=== PATIENT | female | born 1950 | race Caucasian/White ===

== ENCOUNTER 2023-05-01 14:10 | Emergency (ER) | payer OTHER, MEDICAID, SELFPAY ==
[2023-05-01 14:18] VITALS: BP 159/73; PULSE 83; RESP 16; TEMP 36.7; O2SAT 96; BMI 28.0
--- NOTE | 2023-05-01 15:10 | ED.URI ---
HPI - URI/Sore Throat <Renata Denise PA-C - Last Filed: 05/01/23 19:15> General Chief Complaint: Upper Respiratory Symptoms Stated Complaint: cold T-5/ sinus pressure Time Seen by Provider: 05/01/23 15:10 Source: patient Mode of arrival: Ambulatory History of Present Illness HPI Narrative: Patient is a 72-year-old female presenting for evaluation of cough, congestion and left lower tooth pain x 4 days. She reports she tested negative for COVID 3 times. She denies difficulty breathing. She states she is not having any ear pain. She denies any change to her vision. She reports she has had a headache above her left eyebrow which is not present at this time. She states that she has various weakness due to having had a stroke in 2013, 2014 and 2016. She states that she also regularly does have a little pain on the left side of her head from time to time related to her previous strokes. She denies any change in quality to her headache pain, and states it is not present at this time. She denies change in baseline body aches from arthritis. She denies sore throat. She notes some slight increase in fatigue, but states that she is able to do her normal activities. She states she does not have a primary care provider since she recently moved here. Related Data Allergies Allergy/AdvReac Type Severity Reaction Status Date / Time codeine AdvReac Nausea Verified 05/01/23 14:21 Review of Systems <Renata Denise PA-C - Last Filed: 05/01/23 19:15> Review of Systems Narrative: See HPI Exam <Renata Denise PA-C - Last Filed: 05/01/23 19:15> Initial Vital Signs Initial Vital Signs: Vital Signs Temperature 98.1 F 05/01/23 14:18 Pulse Rate 83 05/01/23 14:18 Respiratory Rate 16 05/01/23 14:18 Blood Pressure 159/73 H 05/01/23 14:18 Pulse Oximetry 96 05/01/23 14:18 Oxygen Delivery Method Room Air 05/01/23 14:18 GENERAL: 72 year old patient appears stated age. Well-developed patient, in no acute distress. HEAD: Atraumatic. Normocephalic. EYES: Pupils equal round and reactive. No scleral icterus. No injection or drainage. ENT: Nares are without bleeding or purulent drainage. Throat without erythema, No tonsillar hypertrophy or exudate noted. Airway patent. TM visualized bilaterally with good cone of light, canals clear bilaterally. Pinna, tragus are non tender to palpation. NECK: Trachea midline. Non tender, bilateral anterior cervical lymphadenopathy present. CARDIOVASCULAR: Regular rate and rhythm without murmurs, gallops, or rubs. RESPIRATORY: Clear to auscultation. Breath sounds equal bilaterally. No wheezes, rales, or rhonchi. NEURO: AOx3. SKIN: No rash or erythema of visible areas <Shari Curry DO - Last Filed: 05/01/23 19:50> Initial Vital Signs Initial Vital Signs: Vital Signs Temperature 98.1 F 05/01/23 14:18 Pulse Rate 83 05/01/23 14:18 Respiratory Rate 16 05/01/23 14:18 Blood Pressure 159/73 H 05/01/23 14:18 Pulse Oximetry 96 05/01/23 14:18 Oxygen Delivery Method Room Air 05/01/23 14:18 Course <Renata Denise PA-C - Last Filed: 05/01/23 19:15> Orders Ordered: ED Orders 05/01/23 15:24 Covid-19 + FLU A/B + RSV - PCR Stat Vital Signs Vital signs: Vital Signs - 8 hr 05/01/23 14:18 05/01/23 16:38 Temperature 98.1 F Pulse Rate 83 82 Respiratory Rate 16 20 Blood Pressure 159/73 H 155/74 H Pulse Oximetry 96 95 Oxygen Delivery Method Room Air Room Air <DO Carlyn Scott Last Filed: 05/01/23 19:50> Orders Ordered: ED Orders 05/01/23 15:24 Covid-19 + FLU A/B + RSV - PCR Stat Vital Signs Vital signs: Vital Signs - 8 hr 05/01/23 14:18 05/01/23 16:38 Temperature 98.1 F Pulse Rate 83 82 Respiratory Rate 16 20 Blood Pressure 159/73 H 155/74 H Pulse Oximetry 96 95 Oxygen Delivery Method Room Air Room Air MDM - URI/Sore Throat <Renata Denise PA-C - Last Filed: 05/01/23 19:15> Lab Data Labs: Lab Results 05/01/23 Range/Units 15:24 SARS-CoV-2 (PCR) Negative (Negative) Influenza A (RT-PCR) Flu a negative (NEGATIVE) Influenza B (RT-PCR) Flu b negative (NEGATIVE) RSV (PCR) Negative (Negative) [facility] Narrative Medical decision making narrative: Patient is a 72-year-old female presenting for evaluation of 4 days of cough nasal congestion and left tooth pain. We will continue evaluation with COVID flu and RSV testing. Multiple etiologies for patient's symptoms considered including, but not limited to: COVID, flu, RSV, sinusitis, otitis media. COVID flu and RSV testing returned negative. Discussed results with patient. Discussed that her symptoms are likely due to an upper respiratory viral infection. I recommend increased rest, fluids and Tylenol as needed. Recommend she follow up if she should experience worsening fever, body aches chills, weakness or other concerning signs or symptoms. We discussed following up with primary care provider if she should develop ear pain or sustained sinus congestion and number for establishing with primary care provider has been provided in discharge instructions. Patient's symptoms improved over duration of stay with these therapies: Patient brought Tylenol home, took it and reports feeling improvement in her symptoms. Findings and discharge diagnosis discussed with patient/family followed by verbalization of understanding Return precautions discussed with patient/family whom verbalize understanding of diagnosis and plan <hSari Curry, - Last Filed: 05/01/23 19:50> Lab Data Labs: Lab Results 05/01/23 Range/Units 15:24 SARS-CoV-2 (PCR) Negative (Negative) Influenza A (RT-PCR) Flu a negative (NEGATIVE) Influenza B (RT-PCR) Flu b negative (NEGATIVE) RSV (PCR) Negative (Negative) Discharge Plan Departure Patient Disposition: Home Clinical Impression: Upper respiratory infection Qualifiers: URI type: unspecified viral URI Qualified Code(s): J06.9 - Acute upper respiratory infection, unspecified Instructions: DI for Common Cold Activity Restrictions/Additional Instructions: Thank you for coming in today for your care. Your COVID, flu and RSV results returned negative. Your symptoms are likely due to an upper respiratory infection due to a virus. The recommended treatment for viral respiratory infections include rest, Tylenol, fluids. You may consider taking DayQuil or NyQuil which contains Tylenol within it. This may help your congestion. I recommend continued monitoring of your symptoms and if you should develop worsening ear pain, persistent sinus congestion for 10 days, then I recommend you follow up for further evaluation. Please return to the ED if he should develop any difficulty breathing, severe vomiting, severe weakness, severe headache or other concerning signs or symptoms. * to establish with primary care provider please contact the [facility] Resource line at [phone]. They will ask some questions about your medical history and help get you set up with a doctor in the community. *Return to Emergency Department if you should have any new, worsening or concerning symptoms, such as fever greater than 101 F, shaking chills, worsening pain, persistent vomiting or other bothersome symptoms Referrals: *Temp,ED* [Primary Care Provider] - Stand Alone Forms: Patient Portal/API ED Sign-out <Shari Curry DO - Last Filed: 05/01/23 19:50> Cosign ED Attending Syd Attestation: I was available for consultation.
--- NOTE | 2023-05-01 16:07 | PC.NURSE ---
JAYSON aly requested to ask the patient if she wanted anything for her discomfort and she stated that she took 500mg of apap and 500mg or aspirin and she did not need anything at this time.
[2023-05-01 16:10] LABS: Influenza A - CEPHEID Flu A NEGATIVE (NEGATIVE); Influenza B - CEPHEID Flu B NEGATIVE (NEGATIVE); Respiratory Syncytial Virus Negative (Negative)
[2023-05-01 16:12] LABS: COVID-19 CEPHEID 4-PLEX PCR Negative (Negative)
[2023-05-01 16:38] VITALS: BP 155/74; PULSE 82; RESP 20; O2SAT 95
== END 2023-05-01 17:20 | disposition home or self-care (01) ==
PROVIDERS: Emergency Provider Physician Assistant
DX: J06.9 Acute upper respiratory infection, unspecified (principal); K08.89 Other specified disorders of teeth and supporting structures; Z20.822 Contact with and (suspected) exposure to COVID-19
CPT/HCPCS: 0241U; 99282

== ENCOUNTER → 2023-09-02 06:13 | Outpatient (ROUT) | payer OTHER, MEDICAID, SELFPAY ==
[2023-09-02 07:54] LABS: Add Manual Diff / Slide Review NO; Basophils Absolute Auto 100 /uL (0-100); Eosinophils Absolute Auto 400 /uL (0-450); Eosinophils Percent Auto 7.2 % (2-4); Hematocrit 35.3 % (36-46); Hemoglobin 11.9 g/dL (12.0-16.0); Lymphocytes Absolute Auto 2000 /uL (1100-4500); Lymphocytes Percent Auto 33.2 % (25-40); Mean Corpuscular HGB Conc 33.8 % (30-36); Mean Corpuscular Hemoglobin 30.1 PG (26-34); Monocytes Absolute Auto 600 /uL (0-900); Monocytes Percent Auto 9.8 % (3-14); Neutrophils Absolute Auto 3000 /uL (1500-7000); Neutrophils Percent Auto 48.8 % (50-75); Platelet Count 200 X10^3/uL (150-400); Red Blood Cell Count 3.96 X10^6/uL (4.0-5.2); White Blood Cell Count 6.2 X10^3/uL (4.5-11.0)
[2023-09-02 08:03] LABS: Hemoglobin A1C% w Est Avg Glu 5.9 % (4.0-6.0)
[2023-09-02 08:20] LABS: Alanine Aminotransferase 18 IU/L (<35); Albumin 4.3 g/dL (3.5-5.0); Albumin Globulin Ratio 1.4 (1.0-2.8); Alkaline Phosphatase 85 U/L (38-126); Aspartate Aminotransferase 29 IU/L (14-36); BUN Creatinine Ratio 18.9 (6-22); Bilirubin Total 0.4 mg/dL (0.2-1.3); Blood Urea Nitrogen 27 mg/dL (7-17); Calcium 9.6 mg/dL (8.4-10.2); Carbon Dioxide 24 mmol/L (22-32); Chloride 113 mmol/L (98-107); Cholesterol 187 mg/dL (140-199); Estimated Glomerular Filt Rate 39 mL/min (>60); Glucose 103 mg/dL (80-110); HDL Cholesterol 45 mg/dL (40-60); HEMOLYSIS < 15 (0-50); LDL Cholesterol Calculated 63 mg/dL (<100); Potassium 4.4 mmol/L (3.4-5.1); Sodium 143 mmol/L (137-145); Total Protein 7.3 g/dL (6.3-8.2); Triglycerides 395 mg/dL (35-150)
[2023-09-02 08:49] LABS: Thyroid Stimulating Hormone 1.05 uIU/mL (0.47-4.68)
== END ==
PROVIDERS: Visit Provider Nurse Practitioner Family
DX: Z13.9 Encounter for screening, unspecified (principal)
CPT/HCPCS: 36415; 80053; 80061; 83036; 84443; 85025

== ENCOUNTER → 2023-10-21 06:18 | Outpatient (ROUT) | payer OTHER, MEDICAID, SELFPAY ==
[2023-10-21 07:36] LABS: BUN Creatinine Ratio 17.4 (6-22); Blood Urea Nitrogen 25 mg/dL (7-17); Carbon Dioxide 20 mmol/L (22-32); Chloride 119 mmol/L (98-107); Estimated Glomerular Filt Rate 39 mL/min (>60); Glucose 103 mg/dL (80-110); HEMOLYSIS < 15 (0-50); Magnesium 1.9 mg/dL (1.6-2.3); Potassium 4.7 mmol/L (3.4-5.1); Sodium 144 mmol/L (137-145)
== END ==
PROVIDERS: Visit Provider Registered Nurse
DX: I10 Essential (primary) hypertension (principal); E11.40 Type 2 diabetes mellitus with diabetic neuropathy, unspecified
CPT/HCPCS: 36415; 80048; 83735

== ENCOUNTER 2024-06-19 10:32 | Emergency (ER) | payer OTHER, MEDICAID, SELFPAY ==
[2024-06-19 11:11] VITALS: BP 143/84; PULSE 66; RESP 18; TEMP 36.8; O2SAT 96; BMI 33.4
--- NOTE | 2024-06-19 12:13 | ED.BACK ---
HPI - Back Pain/Injury General Chief Complaint: Back Pain/Injury Stated Complaint: back pain Time Seen by Provider: 06/19/24 11:31 History of Present Illness HPI Narrative: Ms. Marrero is a very sweet 73-year-old female with a past medical history of stroke, ambulates with walker, hypertension, hyperlipidemia, lives at [facility] who presents to the emergency department for left low back pain x3 days. Patient denies any known injury but states that her left low back has been hurting and occasionally radiating to the left groin/front of her hip. The pain improves with taking aspirin and Tylenol. The pain is exacerbated with movement, specifically squatting down. She went to the walk-in clinic yesterday and had a negative urine test, she was recommended to get lumbar x-ray however she declined at that time. She is here in the emergency department today because the pain is persisting and she is now interested in having some imaging done so she knows best had treat her symptoms. She denies any numbness tingling or weakness of her lower legs. She denies dysuria, frequency, urgency, hematuria, upper flank pain, abdominal pain, nausea, vomiting, diarrhea, constipation, fevers, chills, chest pain, shortness of breath. She does have some word-finding difficulty because of her prior strokes. Related Data Home Medications Medication Instructions Recorded Confirmed amlodipine 5 mg tablet 5 mg PO DAILY 06/18/24 06/18/24 aspirin 325 mg tablet 325 mg PO DAILY 06/18/24 06/18/24 atorvastatin 40 mg tablet 40 mg PO QPM 06/18/24 06/18/24 clopidogrel 75 mg tablet 75 mg PO DAILY 06/18/24 06/18/24 famotidine 40 mg tablet 40 mg PO DAILY 06/18/24 06/18/24 fenofibrate nanocrystallized 145 145 mg PO DAILY 06/18/24 06/18/24 mg tablet lisinopril 2.5 mg tablet 2.5 mg PO DAILY 06/18/24 06/18/24 mecobalamin (vitamin B12) 500 mcg mcg PO 06/18/24 06/18/24 chewable tablet metoprolol succinate 100 mg 100 mg PO DAILY 06/18/24 06/18/24 tablet,extended release 24 hr (Toprol XL) nitroglycerin 0.4 mg sublingual 0.4 mg sublingual Q5-15M PRN 06/18/24 06/18/24 tablet vibegron 75 mg tablet (Gemtesa) 75 mg PO DAILY 06/18/24 06/18/24 zinc gluconate 30 mg tablet 30 mg PO DAILY 06/18/24 06/18/24 Previous Rx's Medication Instructions Recorded lidocaine 5 % topical patch 1 patch topical DAILY #30 ea 06/19/24 (Lidoderm) Allergies Allergy/AdvReac Type Severity Reaction Status Date / Time tramadol Allergy Unknown Verified 06/18/24 10:03 codeine AdvReac Nausea Verified 05/01/23 14:21 Review of Systems Review of Systems ROS Unobtainable: All systems reviewed & are unremarkable except as noted in HPI and below Patient History Medical History Lumbar radiculitis Social History Smoking Status: Former smoker Smoking Status: Former smoker Exam Narrative Exam Narrative: GENERAL: 73 year old patient appears stated age. Well-developed patient, in no acute distress. Dressed with sun hat, uses Rollator walker to ambulate. HEAD: Atraumatic. Normocephalic. EYES: No scleral icterus. No injection or drainage. NECK: Trachea midline. Cervical ROM intact. CARDIOVASCULAR: Regular rate RESPIRATORY: ?Nonlabored respirations. ?Speaking in clear, full sentences. GASTROINTESTINAL: Abdomen soft, non-tender, nondistended. Bowel sounds present. EXTREMITIES: Left lower extremity edema, patient states is chronic, not painful. BACK: Subjective pain and reproducible tenderness along the left SI joint region. No midline spinal tenderness. No rashes. NEURO: Alert and oriented, occasional word-finding difficulty. There does appear to be some chronic flattening of the right nasolabial fold. She has good sensation on all 4 extremities in his able to move all 4 extremities. SKIN: No rash or erythema of visible areas Initial Vital Signs Initial Vital Signs: Vital Signs Temperature 98.2 F 06/19/24 11:11 Pulse Rate 66 06/19/24 11:11 Respiratory Rate 18 06/19/24 11:11 Blood Pressure 143/84 H 06/19/24 11:11 Pulse Oximetry 96 06/19/24 11:11 Oxygen Delivery Method Room Air 06/19/24 11:11 Course Orders Ordered: ED Orders 06/19/24 12:27 XR hip w pel if done LT 2V Stat XR lumbar spine 2-3V Stat Discontinued Medications Lidocaine (Lidocaine 5% Patch) 1 each TOP NOW ONE Stop: 06/19/24 12:28 Last Admin: 06/19/24 12:58 Dose: 1 each Documented By: YONI Vital Signs Vital signs: Vital Signs - 8 hr 06/19/24 11:11 06/19/24 14:38 Temperature 98.2 F Pulse Rate 66 55 L Respiratory Rate 18 Blood Pressure 143/84 H 168/72 H Pulse Oximetry 96 98 Oxygen Delivery Method Room Air Room Air MDM - Back Pain/Injury Medical Records Attestation: I reviewed the patient's medical records. Medical records narrative: Walk-in clinic visit yesterday, negative point of care urine, urine culture sent, was recommended KUB x-ray and lumbar x-ray but declined. Was diagnosed with lumbar radiculitis. Lab Data Labs: Urine Dip Bedside Urine Glucose Negative Bedside Urine Bilirubin - Negative Bedside Urine Ketone - Negative Urine Specific [place] 1.020 Bedside Urine Occult Blood - Negative Bedside Urine pH 5.5 Bedside Urine Protein - Negative Bedside Urine Urobilinogen - Negative Bedside Urine Nitrite - Negative Bedside Urine Leukocytes - Negative Esterase Imaging Data Pelvis XR: Radiologist's Impression: PROCEDURE: XR HIP W PEL IF DONE LT 2V INDICATIONS: L low back / si pain TECHNIQUE: AP pelvis with lateral view(s) of the left hip(s). COMPARISON: [facility], CR, XR PELVIS WITH LATERAL HIP LEFT, 11/03/2022, 15:52. [facility], CR, XR LUMBAR SPINE 2-3V, 06/19/2024, 12:29. [facility], CR, XR PELVIS WITH LATERAL HIP LEFT, 12/09/2023, 13:08. FINDINGS: Bones: No fractures or dislocations. Pelvic ring appears intact. No suspicious bony lesions. Age-appropriate lower lumbar spine degenerative changes are noted. Degenerative change can be seen of the sacroiliac joints, without focal acute abnormality. There is at least moderate superior joint space narrowing seen of both hips, with associated remodeling changes with subchondral sclerosis and osteophyte formation. Soft tissues: The visualized bowel gas pattern is normal. There is a left-sided calcified uterine fibroid. IMPRESSION: At least moderate bilateral hip degenerative change. Generalized degenerative changes are seen, including involving the lower lumbar spine and the sacroiliac joints. Additional findings: Lower lumbar spine degenerative change Left-sided calcified uterine fibroid Lumbar X-Ray: Radiologist's Impression: PROCEDURE: XR LUMBAR SPINE 2-3V INDICATIONS: left low back / SI joint pain TECHNIQUE: 3 views of the lumbar spine were acquired. COMPARISON: [facility], CT, CT ABDOMEN PELVIS WITH CONTRAST, 01/02/2021, 16:39. [facility], CR, XR HIP W PEL IF DONE LT 2V, 06/19/2024, 12:29. [facility], CR, XR PELVIS WITH LATERAL HIP LEFT, 12/09/2023, 13:08. FINDINGS: Bones: 5 [id number] vertebrae are present. No vertebral body compression fractures. No suspicious bony lesions. There is moderate levoconvex lumbar scoliosis. Multiple levels of significant degenerative change can be seen, with at least moderate disc space narrowing at each lumbar level. Endplate irregularity and sclerosis can be seen throughout the lumbar spine. Lumbar spine facet arthropathy is seen. Degenerative changes are seen of the sacroiliac joints, without a focal abnormality seen. Soft tissues: Overlying bowel gas pattern is normal. There is a left-sided calcified uterine fibroid IMPRESSION: Levoconvex lumbar scoliosis and multiple levels of significant lumbar spine degenerative change. No significant abnormality of the sacroiliac joints can be seen for age. If it would be helpful for clinical management decision making, please consider a dedicated, scheduled lumbar spine MRI for further evaluation (assuming that there is no contraindication). [facility] Narrative Medical decision making narrative: 73-year-old female with a past medical history of stroke, ambulates with walker, hypertension, hyperlipidemia, lives at [facility] who presents to the emergency department for left low back pain x3 days. Differential diagnosis includes but is not limited to sacroiliitis, lumbar radiculopathy, UTI, nephrolithiasis, lumbar degenerative disc disease, hip osteoarthritis, etc. On exam patient is in no acute distress, nontoxic appearing, vital signs appropriate. She is pain in her left SI joint region radiating to the front left hip, somewhat groin region. She adamantly denies any urinary or bowel symptoms. No lower extremity numbness tingling or weakness. She would neurovascularly intact and ambulating at baseline with her walker. She was in the walk-in clinic yesterday was recommended for lumbar x-ray but declined. However today she would like imaging. Suspect sacroiliitis, we will proceed with lumbar and pelvic x-ray, she declines pain medication, we will treat Lidoderm. Lumbar x-ray reveals levoconvex lumbar scoliosis and multiple levels of significant lumbar spine degenerative change. Left hip and pelvis x-ray reveals moderate bilateral hip degenerative change, generalized degenerative changes are seen including involving the lower lumbar spine in the sacroiliac joints. There is also left-sided calcified uterine fibroid. POC UA negative for any signs of infection or blood. Patient feels much better after Lidoderm patch. Printed and described all x-rays with the patient. Recommended follow up with her primary care doctor as she may benefit from physical therapy. Discussed supportive care, gentle stretching, heat. Patient feels happy with this plan and stable using her walker. We discussed strict ED return precautions. She verbalized understanding of all information with the plan. She is stable for discharge home. Discharge Plan Departure Patient Disposition: Home Clinical Impression: DDD (degenerative disc disease), lumbosacral Qualifiers: Disc-related pain type: discogenic back pain only Qualified Code(s): M51.370 - Other intervertebral disc degeneration, lumbosacral region with discogenic back pain only Uterine fibroid Qualifiers: Uterine leiomyoma location: unspecified location Qualified Code(s): D25.9 - Leiomyoma of uterus, unspecified Instructions: DI for Degenerative Disc Disease Activity Restrictions/Additional Instructions: Dear Ms. Marrero, Thank you for coming to the emergency department. We are sorry your dealing with left-sided low back pain. We obtain x-rays of your lumbar spine and your hips and pelvis today which revealed significant degenerative disc disease and arthritis. You were treated with a topical numbing patch which I have also sent to your pharmacy. Please continue using Tylenol if needed for pain in addition to gentle stretching, heat therapy, and topical numbing. Please follow up with the primary care doctor for further evaluation as you will likely benefit from physical therapy to help strengthen the muscles of the back. Your urine test does not show any signs of kidney stone, infection or urinary tract infection. Please follow up with your primary care doctor within the next 2-3 days for ER follow-up. (If you do not have a PCP you can call [phone]. ?to schedule an appointment with an [facility] Primary Care Provider) IF YOU DEVELOP ANY NEW OR WORSENING SYMPTOMS, RETURN TO THE ER! Please read the attached instructions, they highlight more specific treatments and interventions for you at home. Thank you for letting me participate in your care, Cris Cherry PA-C Prescriptions: New lidocaine [Lidoderm] 5 % adhesive patch,medicated 1 patch topical DAILY Qty: 30 0RF Rx Instructions: leave on most painful area for up to 12 hrs No Action amlodipine 5 mg tablet 5 mg PO DAILY aspirin 325 mg tablet 325 mg PO DAILY atorvastatin 40 mg tablet 40 mg PO QPM clopidogrel 75 mg tablet 75 mg PO DAILY famotidine 40 mg tablet 40 mg PO DAILY fenofibrate nanocrystallized 145 mg tablet 145 mg PO DAILY Gemtesa 75 mg tablet 75 mg PO DAILY lisinopril 2.5 mg tablet 2.5 mg PO DAILY nitroglycerin 0.4 mg tablet, sublingual 0.4 mg sublingual Q5-15M PRN Rx Instructions: do not exceed 3 doses per episode metoprolol succinate [Toprol XL] 100 mg tablet extended release 24 hr 100 mg PO DAILY mecobalamin (vitamin B12) 500 mcg tablet,chewable PO zinc gluconate 30 mg tablet 30 mg PO DAILY Stand Alone Forms: Patient Portal/API/Survey
--- NOTE | 2024-06-19 12:27 | DI.RAD.S_ITS ---
PROCEDURE: XR LUMBAR SPINE 2-3V INDICATIONS: left low back / SI joint pain TECHNIQUE: 3 views of the lumbar spine were acquired. COMPARISON: [facility], CT, CT ABDOMEN PELVIS WITH CONTRAST, 01/02/2021, 16:39. , CR, XR HIP W PEL IF DONE LT 2V, 06/19/2024, 12:29. [facility], CR, XR PELVIS WITH LATERAL HIP LEFT, 12/09/2023, 13:08. FINDINGS: Bones: 5 [id number] vertebrae are present. No vertebral body compression fractures. No suspicious bony lesions. There is moderate levoconvex lumbar scoliosis. Multiple levels of significant degenerative change can be seen, with at least moderate disc space narrowing at each lumbar level. Endplate irregularity and sclerosis can be seen throughout the lumbar spine. Lumbar spine facet arthropathy is seen. Degenerative changes are seen of the sacroiliac joints, without a focal abnormality seen. Soft tissues: Overlying bowel gas pattern is normal. There is a left-sided calcified uterine fibroid IMPRESSION: Levoconvex lumbar scoliosis and multiple levels of significant lumbar spine degenerative change. No significant abnormality of the sacroiliac joints can be seen for age. If it would be helpful for clinical management decision making, please consider a dedicated, scheduled lumbar spine MRI for further evaluation (assuming that there is no contraindication). Dictated by: Cheko Soto M.D. on 06/19/2024 at 12:06 Approved by: Cheko Soto M.D. on 06/19/2024 at 12:08
--- NOTE | 2024-06-19 12:27 | DI.RAD.S_ITS ---
PROCEDURE: XR HIP W PEL IF DONE LT 2V INDICATIONS: L low back / si pain TECHNIQUE: AP pelvis with lateral view(s) of the left hip(s). COMPARISON: [facility], CR, XR PELVIS WITH LATERAL HIP LEFT, 11/03/2022, 15:52. [facility], CR, XR LUMBAR SPINE 2-3V, 06/19/2024, 12:29. [facility], CR, XR PELVIS WITH LATERAL HIP LEFT, 12/09/2023, 13:08. FINDINGS: Bones: No fractures or dislocations. Pelvic ring appears intact. No suspicious bony lesions. Age-appropriate lower lumbar spine degenerative changes are noted. Degenerative change can be seen of the sacroiliac joints, without focal acute abnormality. There is at least moderate superior joint space narrowing seen of both hips, with associated remodeling changes with subchondral sclerosis and osteophyte formation. Soft tissues: The visualized bowel gas pattern is normal. There is a left-sided calcified uterine fibroid. IMPRESSION: At least moderate bilateral hip degenerative change. Generalized degenerative changes are seen, including involving the lower lumbar spine and the sacroiliac joints. Additional findings: Lower lumbar spine degenerative change Left-sided calcified uterine fibroid Dictated by: Cheko Soto M.D. on 06/19/2024 at 12:04 Approved by: Cheko Soto M.D. on 06/19/2024 at 12:05
[2024-06-19] MEDS: LIDOCAINE 5% PATCH 1 EACH TOP (12:58)
[2024-06-19 14:38] VITALS: BP 168/72; PULSE 55; O2SAT 98
== END 2024-06-19 14:31 | disposition home or self-care (01) ==
PROVIDERS: Emergency Provider Physician Assistant
DX: M51.370 Other intervertebral disc degeneration, lumbosacral region with discogenic back pain only (principal); D25.9 Leiomyoma of uterus, unspecified
CPT/HCPCS: 72100; 73502; 81003; 99282; 99283

== ENCOUNTER 2024-08-29 10:21 | Emergency (ER) | payer OTHER, MEDICAID, SELFPAY ==
[2024-08-29 10:23] VITALS: BP 158/68; PULSE 69; RESP 14; TEMP 36.8; O2SAT 96
--- NOTE | 2024-08-29 11:42 | ED.SKABFB ---
HPI - Skin/Abscess/Foreign Bdy <Ellis Guy PA-C - Last Filed: 08/29/24 19:33> General Chief complaint: Skin/Abscess/Foreign Body Stated complaint: Spot on lower left leg , feels hot x 7 days Time Seen by Provider: 08/29/24 11:41 Source: patient Mode of arrival: Ambulatory Limitations: no limitations History of Present Illness HPI narrative: 74-year-old female with past medical history CVA, heart disease, status post stents, hyperlipidemia, hypertension presents to the ED with 1 week of left lower calf swelling, pain. Patient denies any trauma or insect bites. Patient denies fever, chills, shortness of breath, lightheadedness, dizziness, syncope. Patient does endorse some substernal discomfort which she describes as similar to heartburn. Patient did note that she ate some steak with a lot of pepper yesterday that could be setting off her heartburn. Patient is on Plavix following the strokes. No nausea, vomiting, abdominal pain, dysuria. Related Data Home Medications ?Medication ?Instructions ?Recorded ?Confirmed amlodipine 5 mg tablet 5 mg PO DAILY 06/18/24 06/18/24 aspirin 325 mg tablet 325 mg PO DAILY 06/18/24 06/18/24 atorvastatin 40 mg tablet 40 mg PO QPM 06/18/24 06/18/24 clopidogrel 75 mg tablet 75 mg PO DAILY 06/18/24 06/18/24 famotidine 40 mg tablet 40 mg PO DAILY 06/18/24 06/18/24 fenofibrate nanocrystallized 145 145 mg PO DAILY 06/18/24 06/18/24 mg tablet lisinopril 2.5 mg tablet 2.5 mg PO DAILY 06/18/24 06/18/24 mecobalamin (vitamin B12) 500 mcg mcg PO 06/18/24 06/18/24 chewable tablet metoprolol succinate 100 mg 100 mg PO DAILY 06/18/24 06/18/24 tablet,extended release 24 hr (Toprol XL) nitroglycerin 0.4 mg sublingual 0.4 mg sublingual Q5-15M PRN 06/18/24 06/18/24 tablet vibegron 75 mg tablet (Gemtesa) 75 mg PO DAILY 06/18/24 06/18/24 zinc gluconate 30 mg tablet 30 mg PO DAILY 06/18/24 06/18/24 Previous Rx's ?Medication ?Instructions ?Recorded lidocaine 5 % topical patch 1 patch topical DAILY #30 ea 06/19/24 (Lidoderm) apixaban 5 mg (74 tabs) tablets in See Rx Instructions PO .COMPLEX 08/29/24 a dose pack (Eliquis DVT-PE Treat #74 ea 30D Start) Allergies Allergy/AdvReac Type Severity Reaction Status Date / Time tramadol Allergy Unknown Verified 08/29/24 10:23 codeine AdvReac Nausea Verified 08/29/24 10:23 Review of Systems <Ellis Guy PA-C - Last Filed: 08/29/24 19:33> Constitutional Constitutional: Denies chills, Denies fatigue, Denies fever(s), Denies frequent falls, Denies lethargy and Denies weakness Eyes Eyes: Denies change in vision, Denies eye discharge, Denies irritation and Denies loss of vision ENT Ears, Nose, Mouth, and Throat: Denies change in voice, Denies dizziness, Denies neck pain, Denies sore throat and Denies throat swelling Cardiovascular Cardiovascular: Reports chest pain, Denies irregular heart rhythm, Denies lightheadedness, Denies palpitations, Denies dyspnea, Denies dyspnea on exertion and Denies orthopnea Respiratory Respiratory: Denies cough, Denies dyspnea, Denies dyspnea on exertion and Denies wheezing Gastrointestinal Gastrointestinal: Denies abdominal pain, Denies change in bowel habits, Denies diarrhea, Denies nausea and Denies vomiting Musculoskeletal Musculoskeletal: Denies neck pain and Denies numbness Comments: Left lower calf swelling, pain Integumentary/Breasts Skin/Breast: Denies pruritus, Denies erythema, Denies rash and Denies wounds Neurologic Neurologic: Denies behavioral changes, Denies confusion, Denies dizziness, Denies frequent falls, Denies loss of vision, Denies numbness and Denies weakness Psychiatric Psychiatric: Denies anxiety, Denies behavioral changes, Denies confusion, Denies depression, Denies homicidal ideation and Denies suicidal ideation Endocrine Endocrine: Denies fatigue, Denies flushing and Denies palpitations Hematologic/Lymphatic Hematologic/Lymphatic: Denies easy bruising Allergic/Immunologic Allergic/Immunologic: Denies urticaria, Denies throat swelling and Denies wheezing Patient History <Ellis Guy PA-C - Last Filed: 08/29/24 19:33> Medical History Lumbar radiculitis Social History Smoking Status: Unknown if ever smoked Smoking Status: Unknown if ever smoked Exam <Ellis Guy PA-C - Last Filed: 08/29/24 19:33> Narrative Exam Narrative: Const General:?cooperative, healthy appearing and comfortable [facility] Head:?normal to inspection Ears:?hearing grossly normal bilaterally Nose:?external nose normal Face and sinus:?normal facial exam and sinuses nontender Mouth:?oral mucosae normal Throat:?posterior oropharynx normal Eyes General:?appearance normal, both eyes and all related structures Neck Neck:?normal visual inspection and no lymphadenopathy noted Resp Effort & Inspection:?normal respiratory effort Auscultation:?clear to auscultation bilaterally Cardio Rate:?regular rate Rhythm:?regular rhythm Musculoskeletal/integumentary There is mild erythema,warmth,indurated appearance that is tender to palpation in the left lower calf. Neurovascularly intact. Patient is able to bear weight and walk. There is generalized swelling of the left lower leg. Neuro General:?patient alert, patient awake and patient oriented x3 Initial Vital Signs Initial Vital Signs: Vital Signs Temperature 98.3 F 08/29/24 10:23 Pulse Rate 69 08/29/24 10:23 Respiratory Rate 14 08/29/24 10:23 Blood Pressure 158/68 H 08/29/24 10:23 Pulse Oximetry 96 08/29/24 10:23 Oxygen Delivery Method Room Air 08/29/24 10:23 <Mariia Holder DO - Last Filed: 08/29/24 19:49> Initial Vital Signs Initial Vital Signs: Vital Signs Temperature 98.3 F 08/29/24 10:23 Pulse Rate 69 08/29/24 10:23 Respiratory Rate 14 08/29/24 10:23 Blood Pressure 158/68 H 08/29/24 10:23 Pulse Oximetry 96 08/29/24 10:23 Oxygen Delivery Method Room Air 08/29/24 10:23 Course <Ellis Guy PA-C - Last Filed: 08/29/24 19:33> Orders Ordered: ED Orders 08/29/24 12:41 US perip venous low extrem lt Stat 08/29/24 14:58 CT angio chest PE protocol Stat 08/29/24 15:11 EKG-12 Lead Stat 08/29/24 15:12 BNP [NT-proBNP (BNP-Adult 18+)] Stat CBC Auto Diff [Complete Blood Count AUTO DIFF] Stat CMP [Comprehensive Metabolic Panel] Stat Lipase Stat PT [Prothrombin Time INR] Stat PTT Partial Thromboplastin Navjot Stat Troponin & CK Cardiac Panel Stat 08/29/24 16:30 Urinalysis and Microscopic Stat Sodium Chloride (Normal Saline 0.9%) 1,000 mls @ 500 mls/hr IV BOLUS ONE Stop: 08/29/24 19:49 Last Admin: 08/29/24 19:01 Dose: Not Given Documented By: RB Sodium Chloride (Normal Saline 0.9%) 500 mls @ 500 mls/hr IV BOLUS ONE Stop: 08/29/24 20:01 Last Admin: 08/29/24 19:05 Dose: 500 mls/hr Documented By: RB Discontinued Medications Apixaban (Apixaban 5 Mg Tablet) 10 mg PO NOW ONE Stop: 08/29/24 17:56 Last Admin: 08/29/24 19:04 Dose: 10 mg Documented By: RB Vital Signs Vital signs: Vital Signs - 8 hr 08/29/24 16:40 Temperature 98.1 F Pulse Rate 63 Respiratory Rate 20 Blood Pressure 146/66 H Pulse Oximetry 99 Oxygen Delivery Method Room Air <Mariia Holder, - Last Filed: 08/29/24 19:49> Orders Ordered: ED Orders 08/29/24 12:41 [facility] venous low extrem lt Stat 08/29/24 14:58 CT angio chest PE protocol Stat 08/29/24 15:11 EKG-12 Lead Stat 08/29/24 15:12 BNP [NT-proBNP (BNP-Adult 18+)] Stat CBC Auto Diff [Complete Blood Count AUTO DIFF] Stat CMP [Comprehensive Metabolic Panel] Stat Lipase Stat PT [Prothrombin Time INR] Stat PTT Partial Thromboplastin Navjot Stat Troponin & CK Cardiac Panel Stat 08/29/24 16:30 Urinalysis and Microscopic Stat Sodium Chloride (Normal Saline 0.9%) 1,000 mls @ 500 mls/hr IV BOLUS ONE Stop: 08/29/24 19:49 Last Admin: 08/29/24 19:01 Dose: Not Given Documented By: RB Sodium Chloride (Normal Saline 0.9%) 500 mls @ 500 mls/hr IV BOLUS ONE Stop: 08/29/24 20:01 Last Admin: 08/29/24 19:05 Dose: 500 mls/hr Documented By: RB Discontinued Medications Apixaban (Apixaban 5 Mg Tablet) 10 mg PO NOW ONE Stop: 08/29/24 17:56 Last Admin: 08/29/24 19:04 Dose: 10 mg Documented By: RB Vital Signs Vital signs: Vital Signs - 8 hr 08/29/24 16:40 Temperature 98.1 F Pulse Rate 63 Respiratory Rate 20 Blood Pressure 146/66 H Pulse Oximetry 99 Oxygen Delivery Method Room Air MDM - Skin/Abscess/Foreign Bdy <Ellis Guy PA-C - Last Filed: 08/29/24 19:33> Lab Data 08/29/24 15:12 08/29/24 15:12 Labs: Lab Results 08/29/24 08/29/24 Range/Units 15:12 16:30 WBC 7.0 (4.5-11.0) X10^3/uL RBC 3.69 L (4.0-5.2) X10^6/uL Hgb 11.1 L (12.0-16.0) g/dL Hct 33.2 L (36-46) % MCV 89.9 (80-100) fL MCH 30.2 (26-34) PG MCHC 33.5 (30-36) % RDW 14.3 (11.6-14.8) % Plt Count 279 (150-400) X10^3/uL Neut % (Auto) 64.9 (50-75) % Lymph % (Auto) 20.4 L (25-40) % [place] % (Auto) 9.2 (3-14) % Eos % (Auto) 4.5 H (2-4) % Baso % (Auto) 1.0 (0-2) % Neut # (Auto) 4500 (7707-2657) /uL Lymph # (Auto) 1400 (7245-5580) /uL [place] # (Auto) 600 (0-900) /uL Eos # (Auto) 300 (0-450) /uL Baso # (Auto) 100 (0-100) /uL PT 12.5 (9.4-12.5) SECONDS INR 1.1 (0.9-1.3) APTT 36 (25.1-36.5) SECONDS Sodium 141 (137-145) mmol/L Potassium 4.3 (3.4-5.1) mmol/L Chloride 109 H (98-107) mmol/L Carbon Dioxide 26 (22-32) mmol/L BUN 21 H (7-17) mg/dL Creatinine 1.86 H (0.52-1.04) mg/dL Estimated GFR 28 L (>60) mL/min BUN/Creatinine Ratio 11.3 (6-22) Glucose 111 H (70-99) mg/dL Calcium 9.3 (8.4-10.2) mg/dL Total Bilirubin 0.5 (0.2-1.3) mg/dL AST 39 H (14-36) IU/L ALT 29 (<35) IU/L Alkaline Phosphatase 56 (38-126) U/L Total Creatine Kinase 43 (30-135) U/L Troponin I < 0.012 (0.01-0.034) ng/mL NT-Pro-B Natriuret Pep 322 H (<125) pg/mL Total Protein 6.8 (6.3-8.2) g/dL Albumin 4.0 (3.5-5.0) g/dL Globulin 2.8 (1.7-4.1) g/dL Albumin/Globulin Ratio 1.4 (1.0-2.8) Lipase 75 (23-300) U/L Urine Color Yellow Urine Appearance Clear Urine pH 5.5 (4.5-8.0) Ur Specific [place] 1.025 (1.000-1.035) Urine Protein Negative (Negative) Urine Glucose (UA) Negative (Negative) g/dL Urine Ketones Negative (NEGATIVE) Urine Occult Blood Negative (Negative) Urine Nitrate Negative (Negative) Urine Bilirubin Negative (NEGATIVE) Urine Urobilinogen 1.0 (0.2) E.U./dL Ur Leukocyte Esterase Negative (NEGATIVE) Urine RBC 0-1/hpf (0-5/HPF) Urine WBC 0-1/hpf (0-5/HPF) Ur Squamous Epith Cells 0-1 /hpf (0-5/HPF) Urine Bacteria Occasional (0-1) (None) Ur Culture Indicated? Cult not indicated Vol Urine Centrifuged 10ml (spun) MDM Narrative Medical decision making narrative: 74-year-old female with past medical history CVA, heart disease, status post stents, hyperlipidemia, hypertension presents to the ED with 1 week of left lower calf swelling, pain. Concern for DVT versus superficial thrombophlebitis versus cellulitis versus other. Obtained ultrasound which is as follows: Partially occlusive DVTs are seen in the distal main femoral vein and popliteal vein. Superficial veins in the calf also appear thrombosed. Discussed findings with patient. Given patient is complaining of chest discomfort and the finding of DVT, past history of strokes, will obtain a cardiopulmonary workup and CT PE. Creatinine elevated to 1.86, GFR reduced to 28. Appears to be worsening CKD. Labs within normal limits. Troponin within normal limits. BNP within normal limits. Radiologist Dr. Tran was consulted to discuss pros and cons of a CT PE with contrast, in the light of patient's kidney function. We agreed that the risks are significant enough to proceed with patient's consent. Discussed risks and benefits of the CT PE with patient. Patient verbalized understanding, elected to go forward. CT PE as follows: No pulmonary embolus. No acute cardiopulmonary process. Severe coronary artery calcifications. Patient was given a small bolus of IV fluids. Discussed findings with patient. Recommend starting Eliquis for anticoagulation. Patient asked to stop Plavix. First dose of Eliquis given in the ED. Recommend follow-up with cardiology and PCP as soon as possible. ED return precautions were discussed with patient. Patient verbalized understanding. Medical records reviewed: Yes <Mariia Holder, - Last Filed: 08/29/24 19:49> Lab Data Labs: Lab Results 08/29/24 08/29/24 Range/Units 15:12 16:30 WBC 7.0 (4.5-11.0) X10^3/uL RBC 3.69 L (4.0-5.2) X10^6/uL Hgb 11.1 L (12.0-16.0) g/dL Hct 33.2 L (36-46) % MCV 89.9 (80-100) fL MCH 30.2 (26-34) PG MCHC 33.5 (30-36) % RDW 14.3 (11.6-14.8) % Plt Count 279 (150-400) X10^3/uL Neut % (Auto) 64.9 (50-75) % Lymph % (Auto) 20.4 L (25-40) % [place] % (Auto) 9.2 (3-14) % Eos % (Auto) 4.5 H (2-4) % Baso % (Auto) 1.0 (0-2) % Neut # (Auto) 4500 (6271-1833) /uL Lymph # (Auto) 1400 (6790-9659) /uL [place] # (Auto) 600 (0-900) /uL Eos # (Auto) 300 (0-450) /uL Baso # (Auto) 100 (0-100) /uL PT 12.5 (9.4-12.5) SECONDS INR 1.1 (0.9-1.3) APTT 36 (25.1-36.5) SECONDS Sodium 141 (137-145) mmol/L Potassium 4.3 (3.4-5.1) mmol/L Chloride 109 H (98-107) mmol/L Carbon Dioxide 26 (22-32) mmol/L BUN 21 H (7-17) mg/dL Creatinine 1.86 H (0.52-1.04) mg/dL Estimated GFR 28 L (>60) mL/min BUN/Creatinine Ratio 11.3 (6-22) Glucose 111 H (70-99) mg/dL Calcium 9.3 (8.4-10.2) mg/dL Total Bilirubin 0.5 (0.2-1.3) mg/dL AST 39 H (14-36) IU/L ALT 29 (<35) IU/L Alkaline Phosphatase 56 (38-126) U/L Total Creatine Kinase 43 (30-135) U/L Troponin I < 0.012 (0.01-0.034) ng/mL NT-Pro-B Natriuret Pep 322 H (<125) pg/mL Total Protein 6.8 (6.3-8.2) g/dL Albumin 4.0 (3.5-5.0) g/dL Globulin 2.8 (1.7-4.1) g/dL Albumin/Globulin Ratio 1.4 (1.0-2.8) Lipase 75 (23-300) U/L Urine Color Yellow Urine Appearance Clear Urine pH 5.5 (4.5-8.0) Ur Specific [place] 1.025 (1.000-1.035) Urine Protein Negative (Negative) Urine Glucose (UA) Negative (Negative) g/dL Urine Ketones Negative (NEGATIVE) Urine Occult Blood Negative (Negative) Urine Nitrate Negative (Negative) Urine Bilirubin Negative (NEGATIVE) Urine Urobilinogen 1.0 (0.2) E.U./dL Ur Leukocyte Esterase Negative (NEGATIVE) Urine RBC 0-1/hpf (0-5/HPF) Urine WBC 0-1/hpf (0-5/HPF) Ur Squamous Epith Cells 0-1 /hpf (0-5/HPF) Urine Bacteria Occasional (0-1) (None) Ur Culture Indicated? Cult not indicated Vol Urine Centrifuged 10ml (spun) Discharge Plan Departure Patient Disposition: Home Clinical Impression: DVT (deep venous thrombosis) Qualifiers: DVT location: lower extremity Affected thrombotic vein of extremity: popliteal Chronicity: acute Laterality: left Qualified Code(s): I82.432 - Acute embolism and thrombosis of left popliteal vein Instructions: DI for Deep Vein Thrombosis Activity Restrictions/Additional Instructions: You were evaluated in the ED today for left-sided calf pain. The ultrasound shows that you have some blood clots or DVTs. You are being prescribed Eliquis which is a blood thinner. You were given your 1st dose in the emergency department. Please stop the Plavix (clopidogrel) and start the Eliquis. 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 Return to the ED if you have worsening symptoms, chest pain, shortness of breath. Prescriptions: New Eliquis DVT-PE Treat 30D Start 5 mg (74 tabs) tablets,dose pack See Rx Instructions .ROUTE .COMPLEX Qty: 74 0RF Rx Instructions: orally per package directions No Action amlodipine 5 mg tablet 5 mg PO DAILY aspirin 325 mg tablet 325 mg PO DAILY atorvastatin 40 mg tablet 40 mg PO QPM clopidogrel 75 mg tablet 75 mg PO DAILY famotidine 40 mg tablet 40 mg PO DAILY fenofibrate nanocrystallized 145 mg tablet 145 mg PO DAILY Gemtesa 75 mg tablet 75 mg PO DAILY lisinopril 2.5 mg tablet 2.5 mg PO DAILY nitroglycerin 0.4 mg tablet, sublingual 0.4 mg sublingual Q5-15M PRN Rx Instructions: do not exceed 3 doses per episode metoprolol succinate [Toprol XL] 100 mg tablet extended release 24 hr 100 mg PO DAILY mecobalamin (vitamin B12) 500 mcg tablet,chewable PO zinc gluconate 30 mg tablet 30 mg PO DAILY lidocaine [Lidoderm] 5 % adhesive patch,medicated 1 patch topical DAILY Qty: 30 0RF Rx Instructions: leave on most painful area for up to 12 hrs Stand Alone Forms: Patient Portal/API ED Sign-out <Mariia Holder DO - Last Filed: 08/29/24 19:49> Cosign ED Attending Cosignature Attestation: I was immediately available in the department for consultation. Case was discussed with myself.
--- NOTE | 2024-08-29 12:41 | DI.US.S_ITS ---
PROCEDURE: US PERIPH VENOUS LOW EXTREM LT INDICATIONS: Lower leg swelling TECHNIQUE: Real-time imaging, as well as color and pulse Doppler interrogation, were performed of the lower extremity deep veins from the inguinal ligament to the popliteal fossa, with documentation of the visualized calf veins. COMPARISON: None. FINDINGS AND IMPRESSION: Partially occlusive DVTs are seen in the distal main femoral vein and popliteal vein. Superficial veins in the calf also appear thrombosed. Dictated by: Sohail Moore M.D. on 08/29/2024 at 13:44 Approved by: Sohail Moore M.D. on 08/29/2024 at 13:45
--- NOTE | 2024-08-29 14:58 | DI.CT.S_ITS ---
PROCEDURE: CT ANGIO CHEST PE PROTOCOL INDICATIONS: +dvt, CP TECHNIQUE: After the administration of intravenous contrast, 2 mm thick sections acquired from the pulmonary apices to the posterior costophrenic angles. 3-dimensional maximum intensity projection (MIP) coronal and sagittal reformats were then acquired through the thorax. For radiation dose reduction, the following was used: automated exposure control, adjustment of mA and/or kV according to patient size. COMPARISON: [facility], , PERIPH VENOUS LOW EXTREM LT, 08/29/2024, 13:15. FINDINGS: Image quality: Diagnostic. Pulmonary arteries: Pulmonary arteries are normal in size, and demonstrate no intraluminal filling defects to suggest central pulmonary embolism. Lower Neck: No enlarged lymph nodes. Thyroid: No thyroid nodules which require sonographic follow up, per consensus guidelines. Axillae: No enlarged lymph nodes. Chest Wall: Unremarkable. Bones: Unremarkable. Lungs and Pleura: No pneumothorax or pleural effusions. No consolidation or suspicious nodules. Heart: Heart size is normal. No pericardial effusion. Severe coronary artery calcifications. Thoracic Vessels: No aortic aneurysm. Mediastinum and Nydia: No enlarged lymph nodes. Esophagus: No wall thickening. No hiatal hernia. Upper Abdomen: Visualized upper abdomen solid organs and bowel loops appear normal. IMPRESSION: No pulmonary embolus. No acute cardiopulmonary process. Severe coronary artery calcifications. Dictated by: Ciro Piper M.D. on 08/29/2024 at 16:59 Approved by: Ciro Piper M.D. on 08/29/2024 at 17:02
--- NOTE | 2024-08-29 15:20 | EKG_ITS ---
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
[2024-08-29 15:21] LABS: Add Manual Diff / Slide Review NO; Basophils Absolute Auto 100 /uL (0-100); Eosinophils Absolute Auto 300 /uL (0-450); Eosinophils Percent Auto 4.5 % (2-4); Hematocrit 33.2 % (36-46); Hemoglobin 11.1 g/dL (12.0-16.0); Lymphocytes Absolute Auto 1400 /uL (1100-4500); Lymphocytes Percent Auto 20.4 % (25-40); Mean Corpuscular HGB Conc 33.5 % (30-36); Mean Corpuscular Hemoglobin 30.2 PG (26-34); Mean Corpuscular Volume 89.9 fL (80-100); Monocytes Absolute Auto 600 /uL (0-900); Monocytes Percent Auto 9.2 % (3-14); Neutrophils Absolute Auto 4500 /uL (1500-7000); Neutrophils Percent Auto 64.9 % (50-75); Platelet Count 279 X10^3/uL (150-400); Red Blood Cell Count 3.69 X10^6/uL (4.0-5.2); Red Cell Distribution Width 14.3 % (11.6-14.8)
[2024-08-29 15:27] LABS: INR 1.1 (0.9-1.3); Prothrombin Time 12.5 SECONDS (9.4-12.5)
[2024-08-29 15:30] LABS: PTT Partial Thromboplastin Tim 36 SECONDS (25.1-36.5)
[2024-08-29 15:33] LABS: Alanine Aminotransferase 29 IU/L (<35); Albumin Globulin Ratio 1.4 (1.0-2.8); Alkaline Phosphatase 56 U/L (38-126); Aspartate Aminotransferase 39 IU/L (14-36); BUN Creatinine Ratio 11.3 (6-22); Bilirubin Total 0.5 mg/dL (0.2-1.3); Blood Urea Nitrogen 21 mg/dL (7-17); Calcium 9.3 mg/dL (8.4-10.2); Carbon Dioxide 26 mmol/L (22-32); Chloride 109 mmol/L (98-107); Creatine Kinase 43 U/L (30-135); Estimated Glomerular Filt Rate 28 mL/min (>60); Globulin 2.8 g/dL (1.7-4.1); Glucose 111 mg/dL (70-99); HEMOLYSIS < 15 (0-50); Lipase 75 U/L (23-300); Potassium 4.3 mmol/L (3.4-5.1); Sodium 141 mmol/L (137-145); Total Protein 6.8 g/dL (6.3-8.2)
[2024-08-29 15:44] LABS: NT-proBNP (BNP-Adult 18+) 322 pg/mL (<125); Troponin I < 0.012 ng/mL (0.01-0.034)
[2024-08-29 16:40] VITALS: BP 146/66; PULSE 63; RESP 20; TEMP 36.7; O2SAT 99
[2024-08-29 16:46] LABS: Appearance Urine UA CLEAR; Bilirubin Urine UA NEGATIVE (NEGATIVE); Color Urine UA YELLOW; Glucose Urine UA NEGATIVE (Negative); Ketones Urine UA NEGATIVE (NEGATIVE); Leukocyte Esterase Urine UA NEGATIVE (NEGATIVE); Nitrite Urine UA NEGATIVE (Negative); Occult Blood Urine UA NEGATIVE (Negative); Protein Urine UA NEGATIVE (Negative); Specific Gravity Urine UA 1.025 (1.000-1.035)
[2024-08-29 16:51] LABS: pH Urine UA 5.5 (4.5-8.0)
[2024-08-29 16:52] LABS: Bacteria Urine Occasional (0-1); Culture Indicated Urine Cult Not Indicated; RBC Urine 0-1/HPF (0-5/HPF); Squamous Epithelial Cell Urine 0-1 /HPF (0-5/HPF); Urine Volume 10mL (spun); WBC Urine 0-1/HPF (0-5/HPF)
[2024-08-29] MEDS: APIXABAN 5 MG TABLET 10 MG PO (19:04)
[2024-08-29] MEDS: SODIUM CHLORIDE 0.9% 500 ML IV (19:05)
[2024-08-29 20:00] VITALS: BP 152/68; PULSE 67; RESP 14; O2SAT 97
== END 2024-08-29 20:02 | disposition home or self-care (01) ==
PROVIDERS: Emergency Provider Student in an Organized Health Care Education/Training Program
DX: I82.432 Acute embolism and thrombosis of left popliteal vein (principal); I82.412 Acute embolism and thrombosis of left femoral vein; I82.812 Embolism and thrombosis of superficial veins of left lower extremity; I10 Essential (primary) hypertension; Z79.02 Long term (current) use of antithrombotics/antiplatelets
CPT/HCPCS: 36415; 71275; 80053; 81001; 82550; 83690; 83880; 84484; 85025; 85610; 85730; 93005; 93010; 93971; 96360; 99284; Q9967

== ENCOUNTER 2024-09-23 15:18 | Emergency (ER) | payer OTHER, MEDICAID, SELFPAY ==
[2024-09-23 16:09] VITALS: BP 162/72; PULSE 65; RESP 16; TEMP 36.1; O2SAT 91; BMI 27.1
--- NOTE | 2024-09-23 16:30 | DI.CT.S_ITS ---
PROCEDURE: CT ANGIO CHEST PE PROTOCOL INDICATIONS: DVT 08/29, SOB 91% TECHNIQUE: After the administration of intravenous contrast, 2 mm thick sections acquired from the pulmonary apices to the posterior costophrenic angles. 3-dimensional maximum intensity projection (MIP) coronal and sagittal reformats were then acquired through the thorax. For radiation dose reduction, the following was used: automated exposure control, adjustment of mA and/or kV according to patient size. COMPARISON: [facility], CT, CT ANGIO CHEST PE PROTOCOL, 08/29/2024, 16:16. FINDINGS: Image quality: Diagnostic. Pulmonary arteries: Pulmonary arteries are normal in size, and demonstrate no intraluminal filling defects to suggest central pulmonary embolism. Lower Neck: No enlarged lymph nodes. Thyroid: Normal CT appearance. Axillae: No enlarged lymph nodes. Chest Wall: Unremarkable. Bones: Multilevel disc and endplate degeneration in the lower cervical and mid thoracic spine. Lungs and Pleura: Tiny, chronic right middle lobe lung nodule. No other nodule, mass, ground-glass opacity, or consolidation. Central and peripheral airways are normal without bronchial wall thickening or bronchiectasis. No pleural effusion. Heart: Mildly enlarged heart with heavy coronary artery calcification. No pericardial effusion. Thoracic Vessels: No aortic aneurysm. Mediastinum and Nydia: No enlarged lymph nodes. Esophagus: No wall thickening. No hiatal hernia. Upper Abdomen: Visualized upper abdomen solid organs and bowel loops appear normal. IMPRESSION: No pulmonary embolus. Cardiomegaly with heavy coronary artery calcification. No pulmonary parenchymal process. Dictated by: Mariya Conti M.D. on 09/23/2024 at 18:03 Approved by: Mariya Conti M.D. on 09/23/2024 at 18:08
--- NOTE | 2024-09-23 16:30 | DI.RAD.S_ITS ---
PROCEDURE: XR CHEST 1V INDICATIONS: Chest Pain TECHNIQUE: One view of the chest was acquired. COMPARISON: None. FINDINGS: Surgical changes and devices: None. Lungs and pleura: Lungs are clear. No pleural effusions or pneumothorax. Mediastinum: Mediastinal contours appear normal. Heart size is normal. Bones and chest wall: No suspicious bony lesions. Overlying soft tissues appear unremarkable. IMPRESSION: No acute cardiopulmonary abnormality is seen. Dictated by: Ger Goodwin M.D. on 09/23/2024 at 17:14 Approved by: Ger Goodwin M.D. on 09/23/2024 at 17:14
[2024-09-23 16:47] LABS: Add Manual Diff / Slide Review NO; Hematocrit 35.2 % (36-46); Hemoglobin 11.9 g/dL (12.0-16.0); Lymphocytes Absolute Auto 1800 /uL (1100-4500); Mean Corpuscular HGB Conc 33.8 % (30-36); Mean Corpuscular Hemoglobin 30.4 PG (26-34); Mean Corpuscular Volume 90.0 fL (80-100); Platelet Count 315 X10^3/uL (150-400)
[2024-09-23 16:52] LABS: INR 1.6 (0.9-1.3); Prothrombin Time 18.0 SECONDS (9.4-12.5)
[2024-09-23 16:54] LABS: PTT Partial Thromboplastin Tim 41 SECONDS (25.1-36.5)
[2024-09-23 16:57] LABS: Alanine Aminotransferase 28 IU/L (<35); Albumin 4.4 g/dL (3.5-5.0); Albumin Globulin Ratio 1.6 (1.0-2.8); Alkaline Phosphatase 58 U/L (38-126); Blood Urea Nitrogen 26 mg/dL (7-17); Calcium 9.5 mg/dL (8.4-10.2); Carbon Dioxide 23 mmol/L (22-32); Chloride 107 mmol/L (98-107); Creatine Kinase 54 U/L (30-135); Estimated Glomerular Filt Rate 41 mL/min (>60); Globulin 2.8 g/dL (1.7-4.1); Glucose 151 mg/dL (70-99); HEMOLYSIS < 15 (0-50); Lipase 163 U/L (23-300); Magnesium 1.7 mg/dL (1.6-2.3); Potassium 4.1 mmol/L (3.4-5.1); Sodium 138 mmol/L (137-145); Total Protein 7.2 g/dL (6.3-8.2)
[2024-09-23 17:08] LABS: NT-proBNP (BNP-Adult 18+) 370 pg/mL (<125); Troponin I < 0.012 ng/mL (0.01-0.034)
[2024-09-23 19:00] VITALS: PULSE 60; O2SAT 98
[2024-09-23 19:01] VITALS: BP 112/61; PULSE 67; O2SAT 97
--- NOTE | 2024-09-23 19:25 | ED.EXTPRO ---
HPI - Extremity Problem General Chief complaint: Extremity Problem,Nontraumatic Stated complaint: dvt, possible blood clot moving Time Seen by Provider: 09/23/24 18:00 History of Present Illness HPI Narrative: 74-year-old lady seen 3 weeks ago left lower leg pain with partially occlusive DVT in seen in the distal main femoral vein and popliteal vein insert superficial vein in the calf also thrombosed currently on Xarelto presents today feeling like the pain has gone from the distal region up to the mid calf piña region concern came in to be re-evaluated. She reports she has been taking her Xarelto as described and has not missed a dose. Patient denies any worsening chest pain, shortness of breath, fever, chills, or trauma to the area. Other than what is stated 14 point review of system is negative. Related Data Home Medications ?Medication ?Instructions ?Recorded ?Confirmed amlodipine 5 mg tablet 5 mg PO DAILY 06/18/24 06/18/24 aspirin 325 mg tablet 325 mg PO DAILY 06/18/24 06/18/24 atorvastatin 40 mg tablet 40 mg PO QPM 06/18/24 06/18/24 clopidogrel 75 mg tablet 75 mg PO DAILY 06/18/24 06/18/24 famotidine 40 mg tablet 40 mg PO DAILY 06/18/24 06/18/24 fenofibrate nanocrystallized 145 145 mg PO DAILY 06/18/24 06/18/24 mg tablet lisinopril 2.5 mg tablet 2.5 mg PO DAILY 06/18/24 06/18/24 mecobalamin (vitamin B12) 500 mcg mcg PO 06/18/24 06/18/24 chewable tablet metoprolol succinate 100 mg 100 mg PO DAILY 06/18/24 06/18/24 tablet,extended release 24 hr (Toprol XL) nitroglycerin 0.4 mg sublingual 0.4 mg sublingual Q5-15M PRN 06/18/24 06/18/24 tablet vibegron 75 mg tablet (Gemtesa) 75 mg PO DAILY 06/18/24 06/18/24 zinc gluconate 30 mg tablet 30 mg PO DAILY 06/18/24 06/18/24 Previous Rx's ?Medication ?Instructions ?Recorded lidocaine 5 % topical patch 1 patch topical DAILY #30 ea 06/19/24 (Lidoderm) apixaban 5 mg (74 tabs) tablets in See Rx Instructions PO .COMPLEX 08/29/24 a dose pack (Eliquis DVT-PE Treat #74 ea 30D Start) Allergies Allergy/AdvReac Type Severity Reaction Status Date / Time tramadol Allergy Unknown Verified 08/29/24 10:23 codeine AdvReac Nausea Verified 08/29/24 10:23 Review of Systems Review of Systems ROS Unobtainable: All systems reviewed & are unremarkable except as noted in HPI and below Patient History Medical History Lumbar radiculitis Exam Narrative Exam Narrative: GENERAL: [74] year old patient appears stated age. Well-developed patient, in mild distress. HEAD: Atraumatic. Normocephalic. EYES: Pupils equal round and reactive. Extraocular motions intact. No scleral icterus. No injection or drainage. ENT: Nose without bleeding, purulent drainage. Throat without erythema, tonsillar hypertrophy or exudate. Airway patent. NECK: Trachea midline. Non tender CARDIOVASCULAR: Regular rate and rhythm without murmurs, gallops, or rubs. RESPIRATORY: Clear to auscultation. Breath sounds equal bilaterally. No wheezes, rales, or rhonchi. GASTROINTESTINAL: Abdomen soft, non-tender, nondistended. EXTREMITIES: No edema or joint tenderness. Left lower calf please girth compared to right and mild tenderness to palpation of the mid distal piña region but no redness warmth to the area, motor sensory intact +2DP +2 PT cap refill less than 2 seconds BACK: Nontender without deformity or crepitance. No flank tenderness. NEURO: AOx3. SKIN: No rash or erythema of visible areas Initial Vital Signs Initial Vital Signs: Vital Signs Temperature 97 F L 09/23/24 16:09 Pulse Rate 65 09/23/24 16:09 Respiratory Rate 16 09/23/24 16:09 Blood Pressure 162/72 H 09/23/24 16:09 Pulse Oximetry 91 09/23/24 16:09 Oxygen Delivery Method Room Air 09/23/24 16:09 Course Orders Ordered: ED Orders 09/23/24 16:21 Complete Blood Count AUTO DIFF Stat Comprehensive Metabolic Panel Stat Lipase Stat Magnesium Stat NT-proBNP (BNP-Adult 18+) Stat PTT Partial Thromboplastin Navjot Stat Prothrombin Time INR Stat Troponin & CK Cardiac Panel Stat 09/23/24 16:30 CT angio chest PE protocol Stat XR chest 1V Stat EKG-12 Lead Stat Vital Signs Vital signs: Vital Signs - 8 hr 09/23/24 16:09 Temperature 97 F L Pulse Rate 65 Respiratory Rate 16 Blood Pressure 162/72 H Pulse Oximetry 91 Oxygen Delivery Method Room Air MDM - Extremity (Nontraumatic) Lab Data 09/23/24 16:21 09/23/24 16:21 Labs: Lab Results 09/23/24 Range/Units 16:21 WBC 6.9 (4.5-11.0) X10^3/uL RBC 3.91 L (4.0-5.2) X10^6/uL Hgb 11.9 L (12.0-16.0) g/dL Hct 35.2 L (36-46) % MCV 90.0 (80-100) fL MCH 30.4 (26-34) PG MCHC 33.8 (30-36) % RDW 14.1 (11.6-14.8) % Plt Count 315 (150-400) X10^3/uL Neut % (Auto) 60.2 (50-75) % Lymph % (Auto) 26.8 (25-40) % [place] % (Auto) 8.0 (3-14) % Eos % (Auto) 3.9 (2-4) % Baso % (Auto) 1.1 (0-2) % Neut # (Auto) 4100 (8742-2266) /uL Lymph # (Auto) 1800 (2538-8147) /uL [place] # (Auto) 600 (0-900) /uL Eos # (Auto) 300 (0-450) /uL Baso # (Auto) 100 (0-100) /uL PT 18.0 H (9.4-12.5) SECONDS INR 1.6 H (0.9-1.3) APTT 41 H (25.1-36.5) SECONDS Sodium 138 (137-145) mmol/L Potassium 4.1 (3.4-5.1) mmol/L Chloride 107 (98-107) mmol/L Carbon Dioxide 23 (22-32) mmol/L BUN 26 H (7-17) mg/dL Creatinine 1.36 H (0.52-1.04) mg/dL Estimated GFR 41 L (>60) mL/min BUN/Creatinine Ratio 19.1 (6-22) Glucose 151 H (70-99) mg/dL Calcium 9.5 (8.4-10.2) mg/dL Magnesium 1.7 (1.6-2.3) mg/dL Total Bilirubin 0.5 (0.2-1.3) mg/dL AST 41 H (14-36) IU/L ALT 28 (<35) IU/L Alkaline Phosphatase 58 (38-126) U/L Total Creatine Kinase 54 (30-135) U/L Troponin I < 0.012 (0.01-0.034) ng/mL NT-Pro-B Natriuret Pep 370 H (<125) pg/mL Total Protein 7.2 (6.3-8.2) g/dL Albumin 4.4 (3.5-5.0) g/dL Globulin 2.8 (1.7-4.1) g/dL Albumin/Globulin Ratio 1.6 (1.0-2.8) Lipase 163 (23-300) U/L Imaging Data Chest x-ray: Radiologist's Impression: [place] [address] XRay Report Signed Patient: Machelle Marrero MR#: [id number] : 1950 Acct:[id number] Age/Sex: 74 / F Date of Service: 09/23/24 Loc: ED Accession Number: [id number] Procedure: XR chest 1V Ordering Provider: Jacky Rubin D.O. PROCEDURE: XR CHEST 1V INDICATIONS: Chest Pain TECHNIQUE: One view of the chest was acquired. COMPARISON: None. FINDINGS: Surgical changes and devices: None. Lungs and pleura: Lungs are clear. No pleural effusions or pneumothorax. Mediastinum: Mediastinal contours appear normal. Heart size is normal. Bones and chest wall: No suspicious bony lesions. Overlying soft tissues appear unremarkable. IMPRESSION: No acute cardiopulmonary abnormality is seen. CT scan - chest: Radiologist's Impression: [place] [address] CT Scan Report Signed Patient: Machelle Marrero MR#: [id number] : 1950 Acct:[id number] Age/Sex: 74 / F Date of Service: 09/23/24 Loc: ED Accession Number: [id number] Procedure: CT angio chest PE protocol Ordering Provider: Jacky Rubin D.O. PROCEDURE: CT ANGIO CHEST PE PROTOCOL INDICATIONS: DVT 08/29, SOB 91% TECHNIQUE: After the administration of intravenous contrast, 2 mm thick sections acquired from the pulmonary apices to the posterior costophrenic angles. 3-dimensional maximum intensity projection (MIP) coronal and sagittal reformats were then acquired through the thorax. For radiation dose reduction, the following was used: automated exposure control, adjustment of mA and/or kV according to patient size. COMPARISON: [facility], CT, CT ANGIO CHEST PE PROTOCOL, 08/29/2024, 16:16. FINDINGS: Image quality: Diagnostic. Pulmonary arteries: Pulmonary arteries are normal in size, and demonstrate no intraluminal filling defects to suggest central pulmonary embolism. Lower Neck: No enlarged lymph nodes. Thyroid: Normal CT appearance. Axillae: No enlarged lymph nodes. Chest Wall: Unremarkable. Bones: Multilevel disc and endplate degeneration in the lower cervical and mid thoracic spine. Lungs and Pleura: Tiny, chronic right middle lobe lung nodule. No other nodule, mass, ground-glass opacity, or consolidation. Central and peripheral airways are normal without bronchial wall thickening or bronchiectasis. No pleural effusion. Heart: Mildly enlarged heart with heavy coronary artery calcification. No pericardial effusion. Thoracic Vessels: No aortic aneurysm. Mediastinum and Nydia: No enlarged lymph nodes. Esophagus: No wall thickening. No hiatal hernia. Upper Abdomen: Visualized upper abdomen solid organs and bowel loops appear normal. IMPRESSION: No pulmonary embolus. Cardiomegaly with heavy coronary artery calcification. No pulmonary parenchymal process. MDM Narrative Medical decision making narrative: Vital signs, nurse triage note, medication list, previous ER visits and all imaging study reviewed. CTA showed no PE cardiomegaly with heavy coronary artery calcification no pulmonary parenchymal process. Troponin normal BNP 370. Differential diagnosis DVT PE professional thrombophlebitis. Continue taking Xarelto as previously prescribed. Patient given dose of Tylenol here. Discharge Plan Departure Patient Disposition: Home Clinical Impression: Deep vein thrombosis of lower extremity Qualifiers: Affected thrombotic vein of extremity: femoral Chronicity: acute Laterality: left Qualified Code(s): I82.412 - Acute embolism and thrombosis of left femoral vein Instructions: DI for Deep Vein Thrombosis Activity Restrictions/Additional Instructions: Return with new or worsening symptoms. Continue to take Xarelto as previously prescribed. Follow up PCP 1-2 weeks if no improvement in symptoms. Prescriptions: No Action amlodipine 5 mg tablet 5 mg PO DAILY aspirin 325 mg tablet 325 mg PO DAILY atorvastatin 40 mg tablet 40 mg PO QPM clopidogrel 75 mg tablet 75 mg PO DAILY famotidine 40 mg tablet 40 mg PO DAILY fenofibrate nanocrystallized 145 mg tablet 145 mg PO DAILY Gemtesa 75 mg tablet 75 mg PO DAILY lisinopril 2.5 mg tablet 2.5 mg PO DAILY nitroglycerin 0.4 mg tablet, sublingual 0.4 mg sublingual Q5-15M PRN Rx Instructions: do not exceed 3 doses per episode metoprolol succinate [Toprol XL] 100 mg tablet extended release 24 hr 100 mg PO DAILY mecobalamin (vitamin B12) 500 mcg tablet,chewable PO zinc gluconate 30 mg tablet 30 mg PO DAILY lidocaine [Lidoderm] 5 % adhesive patch,medicated 1 patch topical DAILY Qty: 30 0RF Rx Instructions: leave on most painful area for up to 12 hrs Eliquis DVT-PE Treat 30D Start 5 mg (74 tabs) tablets,dose pack See Rx Instructions .ROUTE .COMPLEX Qty: 74 0RF Rx Instructions: orally per package directions Stand Alone Forms: Patient Portal/API
[2024-09-23 19:30] VITALS: PULSE 68; RESP 30; O2SAT 97
[2024-09-23 19:33] VITALS: BP 124/84; PULSE 70; RESP 28; O2SAT 93
== END 2024-09-23 19:48 | disposition home or self-care (01) ==
PROVIDERS: Student in an Organized Health Care Education/Training Program; Emergency Provider Family Medicine
DX: I82.412 Acute embolism and thrombosis of left femoral vein (principal); R07.9 Chest pain, unspecified; Z79.01 Long term (current) use of anticoagulants
CPT/HCPCS: 36415; 71045; 71275; 80053; 82550; 83690; 83735; 83880; 84484; 85025; 85610; 85730; 99283; 99284; Q9967

== ENCOUNTER → 2025-01-12 20:25 | Outpatient (ROUT) | payer OTHER, MEDICAID, SELFPAY ==
[2025-01-12 20:36] LABS: Appearance Urine UA CLOUDY; Bilirubin Urine UA NEGATIVE (NEGATIVE); Color Urine UA YELLOW; Glucose Urine UA NEGATIVE (Negative); Ketones Urine UA NEGATIVE (NEGATIVE); Leukocyte Esterase Urine UA 1+ (NEGATIVE); Nitrite Urine UA NEGATIVE (Negative); Occult Blood Urine UA TRACE-INTACT (Negative); Protein Urine UA NEGATIVE (Negative); Specific Gravity Urine UA 1.025 (1.000-1.035); Urobilinogen Urine UA 0.2 E.U./dL (0.2)
[2025-01-12 20:37] LABS: pH Urine UA 5.5 (4.5-8.0)
[2025-01-12 20:44] LABS: Culture Indicated Urine Specimen Cultured
== END ==
PROVIDERS: Visit Provider Family Medicine
DX: N39.0 Urinary tract infection, site not specified (principal)
CPT/HCPCS: 81001; 87077; 87086; 87186

== ENCOUNTER 2025-01-13 10:08 | Emergency (ER) | payer OTHER, MEDICAID, SELFPAY ==
[2025-01-13 10:12] VITALS: BP 133/63; PULSE 70; RESP 14; TEMP 37.2; O2SAT 98; BMI 30.2
--- NOTE | 2025-01-13 10:17 | ED_ITS ---
HPI - Female Genitourinary
--- NOTE | 2025-01-13 10:17 | ED.FEMALEGU ---
HPI - Female Genitourinary General Chief complaint: Urogenital-Female Stated complaint: Per patient, has a UTI, Needs meds Time Seen by Provider: 01/13/25 10:09 Source: patient Mode of arrival: Ambulatory History of Present Illness HPI Narrative: 74-year-old female history of DVT yes presents with dysuria, urgency, frequency, last night along with subjective fever but no chills, body aches, nausea, vomiting, diarrhea, constipation, vaginal discharge. Other than what is stated 14 point review of system is negative. Related Data Home Medications ?Medication ?Instructions ?Recorded ?Confirmed amlodipine 5 mg tablet 5 mg PO DAILY 06/18/24 06/18/24 aspirin 325 mg tablet 325 mg PO DAILY 06/18/24 06/18/24 atorvastatin 40 mg tablet 40 mg PO QPM 06/18/24 06/18/24 clopidogrel 75 mg tablet 75 mg PO DAILY 06/18/24 06/18/24 famotidine 40 mg tablet 40 mg PO DAILY 06/18/24 06/18/24 fenofibrate nanocrystallized 145 145 mg PO DAILY 06/18/24 06/18/24 mg tablet lisinopril 2.5 mg tablet 2.5 mg PO DAILY 06/18/24 06/18/24 mecobalamin (vitamin B12) 500 mcg mcg PO 06/18/24 06/18/24 chewable tablet metoprolol succinate 100 mg 100 mg PO DAILY 06/18/24 06/18/24 tablet,extended release 24 hr (Toprol XL) nitroglycerin 0.4 mg sublingual 0.4 mg sublingual Q5-15M PRN 06/18/24 06/18/24 tablet vibegron 75 mg tablet (Gemtesa) 75 mg PO DAILY 06/18/24 06/18/24 zinc gluconate 30 mg tablet 30 mg PO DAILY 06/18/24 06/18/24 Previous Rx's ?Medication ?Instructions ?Recorded lidocaine 5 % topical patch 1 patch topical DAILY #30 ea 06/19/24 (Lidoderm) apixaban 5 mg (74 tabs) tablets in See Rx Instructions PO .COMPLEX 08/29/24 a dose pack (Eliquis DVT-PE Treat #74 ea 30D Start) nitrofurantoin 100 mg PO Q12H 5 days #10 caps 01/13/25 monohydrate/macrocrystals 100 mg capsule (Macrobid) Allergies Allergy/AdvReac Type Severity Reaction Status Date / Time tramadol Allergy Unknown Verified 01/13/25 10:12 codeine AdvReac Nausea Verified 01/13/25 10:12 Review of Systems Review of Systems ROS Unobtainable: All systems reviewed & are unremarkable except as noted in HPI and below Patient History Medical History Lumbar radiculitis Exam Narrative Exam Narrative: GENERAL: [74] year old patient appears stated age. Well-developed patient, in mild distress. HEAD: Atraumatic. Normocephalic. EYES: Pupils equal round and reactive. Extraocular motions intact. No scleral icterus. No injection or drainage. ENT: Nose without bleeding, purulent drainage. Throat without erythema, tonsillar hypertrophy or exudate. Airway patent. NECK: Trachea midline. Non tender CARDIOVASCULAR: Regular rate and rhythm without murmurs, gallops, or rubs. RESPIRATORY: Clear to auscultation. Breath sounds equal bilaterally. No wheezes, rales, or rhonchi. GASTROINTESTINAL: Abdomen soft, non-tender, nondistended. EXTREMITIES: No edema or joint tenderness. BACK: Nontender without deformity or crepitance. No flank tenderness. NEURO: AOx3. SKIN: No rash or erythema of visible areas Initial Vital Signs Initial Vital Signs: Vital Signs Temperature 98.9 F 01/13/25 10:12 Pulse Rate 70 01/13/25 10:12 Respiratory Rate 14 01/13/25 10:12 Blood Pressure 133/63 01/13/25 10:12 Pulse Oximetry 98 01/13/25 10:12 Oxygen Delivery Method Room Air 01/13/25 10:12 Course Orders Ordered: ED Orders 01/13/25 10:38 Urinalysis and Microscopic Stat Vital Signs Vital signs: Vital Signs - 8 hr 01/13/25 10:12 Temperature 98.9 F Pulse Rate 70 Respiratory Rate 14 Blood Pressure 133/63 Pulse Oximetry 98 Oxygen Delivery Method Room Air MDM - Female Genitourinary Lab Data Labs: Lab Results 01/13/25 Range/Units 10:38 Urine Color Yellow Urine Appearance Cloudy Urine pH 5.5 (4.5-8.0) Ur Specific [place] 1.025 (1.000-1.035) Urine Protein 2+ H (Negative) Urine Glucose (UA) Negative (Negative) g/dL Urine Ketones Negative (NEGATIVE) Urine Occult Blood 2+ H (Negative) Urine Nitrate Positive H (Negative) Urine Bilirubin Negative (NEGATIVE) Urine Urobilinogen 0.2 (0.2) E.U./dL Ur Leukocyte Esterase 2+ H (NEGATIVE) Urine RBC 1-5/hpf (0-5/HPF) Urine WBC 10-30/hpf H (0-5/HPF) Ur Squamous Epith Cells 0-1 /hpf (0-5/HPF) Urine Bacteria Moderate (10-30) H (None) Ur Culture Indicated? Specimen cultured Vol Urine Centrifuged 3 MDM Narrative Medical decision making narrative: All lab work, vital signs, nurse triage note, medication list, previous ER visits, and all imaging studies reviewed. UA showed positive nitrite + occult blood +2 leukocyte esterase. Patient given Macrobid will be DC on Macrobid prescription. Differential diagnosis UTI, kidney stone, kidneyinfection. Discharge Plan Departure Patient Disposition: Home Clinical Impression: Acute UTI Instructions: DI for Urinary Tract Infection (UTI), DI for Urinary Retention in Women Activity Restrictions/Additional Instructions: Return with new or worsening symptoms. Take your medicines directed. Keep hydrated. Prescriptions: New nitrofurantoin monohyd/m-cryst [Macrobid] 100 mg capsule 100 mg PO Q12H 5 Days Qty: 10 0RF Rx Instructions: must administer with a meal/food No Action amlodipine 5 mg tablet 5 mg PO DAILY aspirin 325 mg tablet 325 mg PO DAILY atorvastatin 40 mg tablet 40 mg PO QPM clopidogrel 75 mg tablet 75 mg PO DAILY famotidine 40 mg tablet 40 mg PO DAILY fenofibrate nanocrystallized 145 mg tablet 145 mg PO DAILY Gemtesa 75 mg tablet 75 mg PO DAILY lisinopril 2.5 mg tablet 2.5 mg PO DAILY nitroglycerin 0.4 mg tablet, sublingual 0.4 mg sublingual Q5-15M PRN Rx Instructions: do not exceed 3 doses per episode metoprolol succinate [Toprol XL] 100 mg tablet extended release 24 hr 100 mg PO DAILY mecobalamin (vitamin B12) 500 mcg tablet,chewable PO zinc gluconate 30 mg tablet 30 mg PO DAILY lidocaine [Lidoderm] 5 % adhesive patch,medicated 1 patch topical DAILY Qty: 30 0RF Rx Instructions: leave on most painful area for up to 12 hrs Eliquis DVT-PE Treat 30D Start 5 mg (74 tabs) tablets,dose pack See Rx Instructions .ROUTE .COMPLEX Qty: 74 0RF Rx Instructions: orally per package directions Stand Alone Forms: Patient Portal/API
[2025-01-13 10:51] LABS: Bilirubin Urine UA NEGATIVE (NEGATIVE); Color Urine UA YELLOW; Glucose Urine UA NEGATIVE (Negative); Ketones Urine UA NEGATIVE (NEGATIVE); Leukocyte Esterase Urine UA 2+ (NEGATIVE); Nitrite Urine UA POSITIVE (Negative); Occult Blood Urine UA 2+ (Negative); Protein Urine UA 2+ (Negative); Specific Gravity Urine UA 1.025 (1.000-1.035); Urobilinogen Urine UA 0.2 E.U./dL (0.2)
[2025-01-13 11:03] LABS: Appearance Urine UA CLOUDY; pH Urine UA 5.5 (4.5-8.0)
[2025-01-13 11:08] LABS: Culture Indicated Urine Specimen Cultured
[2025-01-13] MEDS: NITROFURANTOIN ER 100 MG CAPSULE PO (11:56)
== END 2025-01-13 12:13 | disposition home or self-care (01) ==
PROVIDERS: Emergency Provider Family Medicine
DX: N39.0 Urinary tract infection, site not specified (principal)
CPT/HCPCS: 81001; 99283

== ENCOUNTER 2025-01-25 14:26 | Emergency (ER) | payer OTHER, MEDICAID, SELFPAY ==
[2025-01-25 14:46] VITALS: BP 135/60; PULSE 55; RESP 17; TEMP 36.8; O2SAT 95; BMI 30.2
--- NOTE | 2025-01-25 14:52 | ED_ITS ---
HPI - Female Genitourinary General Chief complaint: Urogenital-Female Stated complaint: UTI 2 days Time Seen by Provider: 01/25/25 14:47 History of Present Illness HPI Narrative: This is a 74-year-old female presents to the emergency department due to dysuria, urinary frequency and subjective chills over the last 2 days. States that she was seen 2 weeks ago for similar symptoms and prescribed antibiotics which helped significantly improve her symptoms. Denies any lower back pain, f jennie, nausea, vomiting, or any other concerning signs or symptoms. Related Data Home Medications ?Medication ?Instructions ?Recorded ?Confirmed amlodipine 5 mg tablet 5 mg PO DAILY 06/18/2406/18 aspirin 325 mg tablet 325 mg PO DAILY 06/18/2403/02 atorvastatin 40 mg tablet 40 mg PO QPM 06/18/24 clopidogrel 75 mg tablet 75 mg PO DAILY 06/18/2406/07 famotidine 40 mg tablet 40 mg PO DAILY 06/18/2406/07 fenofibrate nanocrystallized 145 145 mg PO DAILY 06/1806/18/24 mg tablet lisinopril 2.5 mg tablet 2.5 mg PO DAILY 06/18/2403/02 mecobalamin (vitamin B12) 500 mcg mcg PO 06/18/2406/07 chewable tablet metoprolol succinate 100 mg 100 mg PO DAILY 06/18/24 0 06/18/24 tablet,extended release 24 hr (Toprol XL) nitroglycerin 0.4 mg sublingual 0.4 mg sublingual Q5-1 5M PRN 06/18/24 06/18/24 tablet vibegron 75 mg tablet (Gemtesa) 75 mg PO DAILY 5 06/18/24 zinc gluconate 30 mg tablet 30 mg PO DAILY 06/18/24 Previous Rx's ?Medication ?Instructions ?Recorded lidocaine 5 % topical patch 1 patch topical DAILY #30 ea 06/19/24 (Lidoderm) apixaban 5 mg (74 tabs) tablets in See Rx Instructions PO .COMPLEX 08/29/24 [facility] ea 30D Start) fosfomycin tromethamine 3 gram 1 packet PO .once 1 dos e #1 ea 01/25/25 oral packet Allergies Allergy/AdvReac Type Severity Reaction Status Date / Time tramadol Allergy Unknown Verified 01/25/25 14:46 codeine AdvReac Nausea Verified 01/25/25 14:46 Review of Systems Review of Systems Narrative: GENERAL: Reports chills, denies Denies , fatigue, malaise, fever, sweats. HEENT: Denies sinus pain, ear pain, sore throat, difficulty swallowing, dizziness. RESPIRATORY: Denies dyspnea, cough, wheezing, hemoptysis, sputum. CARDIOVASCULAR: Denies chest pain, palpitations, orthopnea, edema, GASTROINTESTINAL: Denies nausea, vomiting, abdominal pain, diarrhea, constip ation, melena. : Reports dysuria, frequency, denies incontinence, hematuria, urinary retention. MUSCULOSKELETAL: denies weakness, joint pain, or bony pain SKIN: Denies rash, skin lesions, or other NEUROLOGIC: Denies weakness, headache, numbness, change in speech, confusion, seizures, incoordination. PSYCHIATRIC: No concerning psychosocial issues. 12 point review of systems is negative except for those stated above Patient History Medical History Lumbar radiculitis Exam Narrative Exam Narrative: GENERAL: Well-developed patient, in mild distress. HEAD: Atraumatic. Normocephalic. EYES: Pupils equal round and reactive. Extraocular motions intact. No scleral icterus. No injection or drainage. ENT: Nose without bleeding, purulent drainage. Throat without erythema, tonsillar hypertrophy or exudate. Airway patent. NECK: Trachea midline. Non tender EXTREMITIES: No edema or joint tenderness. NEURO: AOx3. SKIN: No rash or erythema of visible areas Back: No CVA tenderness to palpation Initial Vital Signs Initial Vital Signs: Vital Signs Temperature 98.2 F 01/25/25 14:46 Pulse Rate 55 L 01/25/25 14:46 Respiratory Rate 17 01/25/25 14:46 Blood Pressure 135/60 01/25/25 14:46 Pulse Oximetry 95 01/25/25 14:46 Oxygen Delivery Method Room Air 01/25/25 14:46 Course Orders Ordered: ED Orders 01/25/25 16:30 UA Complete [Urinalysis and Microscopic] Stat Vital Signs Vital signs: Vital Signs - 8 hr 01/25/25 14:46 01/25/25 17:54 Temperature 98.2 F Pulse Rate 55 L 56 L Respiratory Rate 17 18 Blood Pressure 135/60 144/65 H Pulse Oximetry 95 96 Oxygen Delivery Method Room Air Room Air MDM - Female Genitourinary Lab Data Labs: Lab Results 01/25/25 Range/Units 16:30 Urine Color Yellow Urine Appearance Clear Urine pH 5.0 (4.5-8.0) Ur Specific [place] 1.025 (1.000-1.035) Urine Protein Negative (Negative) Urine Glucose (UA) Negative (Negative) g/dL Urine Ketones Trace H (NEGATIVE) Urine Occult Blood Negative (Negative) Urine Nitrate Negative (Negative) Urine Bilirubin Negative (NEGATIVE) Urine Urobilinogen 0.2 (0.2) E.U./dL Ur Leukocyte Esterase Negative (NEGATIVE) Urine RBC 0-1/hpf (0-5/HPF) Urine WBC 1-5/hpf (0-5/HPF) Ur Squamous Epith Cells 0-1 /hpf (0-5/HPF) Urine Bacteria Occasional (0-1) (None) Ur Culture Indicated? Cult not indicated Vol Urine Centrifuged 10ml (spun) [facility] Narrative Medical decision making narrative: ED course: 74-year-old female presents to the emergency department due to repeat UTI symptoms. Patient's UA was unremarkable though she is describing dysuria as well as urinary frequency his children will treat empirically with fosfomycin. Possibly resistant to Macrobid based on previous cultures.. Low concern for complicated cystitis. CC: Dysuria Complicating co-morbidities: None Data collected from: Previous notes Medical records reviewed: Patient was seen 12 days ago for UTI symptoms. No pertinent medical history. Prescribed Macrobid. Urine culture showed E coli. Resistant to multiple medications Differential considered, but not limited to: Acute simple cystitis vaginitis, complicated cystitis Exam documented above, pertinent findings include: No CVA tenderness to palpation Lab Test results independently reviewed as above. Pertinent findings: UA unremarkable Imaging studies independently reviewed: None obtained Scores Used: None MIPS Elements: None Consultations: None Treatments: None Re-evaluations: None Discussion: Discussed plan with the patient was comfortable with the plan Diagnosis: Acute simple cystitis Disposition: see below, along with detailed discharge instructions that have been reviewed with patient as well as indications for ED re-evaluation and additional outpatient follow up Discharge Plan Departure Patient Disposition: Home Clinical Impression: Dysuria Activity Restrictions/Additional Instructions: Thank you for coming to the [facility] Emergency Department today. Please take the antibiotic dose as prescribed. It is 1 time dose. Please return to the emergency department if you develop any significant new or worsening fevers, worsening symptoms, or any other concerning signs or symptoms. I hope you feel better soon. Please follow up with your primary care provider within a week if your symptoms continue. If you do not have a primary care provider please contact the [facility] Resource line at [phone]. They will ask some questions about your medical history and help you get set up with a provider in the community. Prescriptions: New fosfomycin tromethamine 3 gram packet 1 packet PO .once Qty: 1 0RF No Action amlodipine 5 mg tablet 5 mg PO DAILY aspirin 325 mg tablet 325 mg PO DAILY atorvastatin 40 mg tablet 40 mg PO QPM clopidogrel 75 mg tablet 75 mg PO DAILY famotidine 40 mg tablet 40 mg PO DAILY fenofibrate nanocrystallized 145 mg tablet 145 mg PO DAILY Gemtesa 75 mg tablet 75 mg PO DAILY lisinopril 2.5 mg tablet 2.5 mg PO DAILY nitroglycerin 0.4 mg tablet, sublingual 0.4 mg sublingual Q5-15M PRN Rx Instructions: do not exceed 3 doses per episode metoprolol succinate [Toprol XL] 100 mg tablet extended release 24 hr 100 mg PO DAILY mecobalamin (vitamin B12) 500 mcg tablet,chewable PO zinc gluconate 30 mg tablet 30 mg PO DAILY lidocaine [Lidoderm] 5 % adhesive patch,medicated 1 patch topical DAILY Qty: 30 0RF Rx Instructions: leave on most painful area for up to 12 hrs Eliquis DVT-PE Treat 30D Start 5 mg (74 tabs) tablets,dose pack See Rx Instructions .ROUTE .COMPLEX Qty: 74 0RF Rx Instructions: orally per package directions Stand Alone Forms: Patient Portal/API
[2025-01-25 16:37] LABS: Appearance Urine UA CLEAR; Bilirubin Urine UA NEGATIVE (NEGATIVE); Color Urine UA YELLOW; Glucose Urine UA NEGATIVE (Negative); Ketones Urine UA TRACE (NEGATIVE); Leukocyte Esterase Urine UA NEGATIVE (NEGATIVE); Nitrite Urine UA NEGATIVE (Negative); Occult Blood Urine UA NEGATIVE (Negative); Protein Urine UA NEGATIVE (Negative); Specific Gravity Urine UA 1.025 (1.000-1.035); Urobilinogen Urine UA 0.2 E.U./dL (0.2)
[2025-01-25 16:39] LABS: pH Urine UA 5.0 (4.5-8.0)
[2025-01-25 16:47] LABS: Culture Indicated Urine Cult Not Indicated
[2025-01-25 17:54] VITALS: BP 144/65; PULSE 56; RESP 18; O2SAT 96
== END 2025-01-25 18:12 | disposition home or self-care (01) ==
PROVIDERS: Emergency Provider Physician Assistant Medical
DX: R30.0 Dysuria (principal)
CPT/HCPCS: 81001; 99282

== ENCOUNTER → 2025-02-06 12:51 | Outpatient (ROUT) | payer OTHER, MEDICAID, SELFPAY ==
[2025-02-06 12:57] LABS: Appearance Urine UA CLOUDY; Bilirubin Urine UA NEGATIVE (NEGATIVE); Color Urine UA YELLOW; Glucose Urine UA NEGATIVE (Negative); Ketones Urine UA NEGATIVE (NEGATIVE); Leukocyte Esterase Urine UA 2+ (NEGATIVE); Nitrite Urine UA NEGATIVE (Negative); Occult Blood Urine UA TRACE-INTACT (Negative); Protein Urine UA TRACE (Negative); Specific Gravity Urine UA 1.020 (1.000-1.035); Urobilinogen Urine UA 0.2 E.U./dL (0.2)
[2025-02-06 12:58] LABS: pH Urine UA 6.0 (4.5-8.0)
[2025-02-06 12:59] LABS: Culture Indicated Urine Specimen Cultured
== END ==
PROVIDERS: Visit Provider Family Medicine
DX: N39.0 Urinary tract infection, site not specified (principal)
CPT/HCPCS: 81001; 87077; 87086

== ENCOUNTER 2025-02-08 10:52 | Inpatient (IN) | payer OTHER, MEDICAID, SELFPAY ==
[2025-02-08] VITALS (19 sets, daily range): BP systolic 84–161; BP diastolic 43–84; PULSE 60–90; RESP 14–24; TEMP 35.6–36.9; O2SAT 86–97; BMI 31.9; BMI 32.1
--- NOTE | 2025-02-08 11:33 | ED.FEMALEGU ---
HPI - Female Genitourinary General Chief complaint: Urogenital-Female Stated complaint: Pain in bladder Time Seen by Provider: 02/08/25 11:14 Source: EMS Mode of arrival: EMS History of Present Illness HPI Narrative: 74-year-old female with history of DVT as well as multiple strokes, unable to remember if she is still taking her Eliquis, her medications are handled by her long-term, presents with recurrent UTI symptoms and some confusion and difficulty with words. The patient states that this is not a new symptom that she occasionally gets a little bit confused and a little bit of difficulty with words with urine infections and just on good days and bad days. Patient's main complaint is abdominal pain. denies fevers, chills, vomiting, diarrhea, chest pain, shortness of breath, dizziness, headache, and urinary symptoms. Related Data Home Medications ?Medication ?Instructions ?Recorded ?Confirmed amlodipine 5 mg tablet 5 mg PO DAILY 06/18/24 06/18/24 aspirin 325 mg tablet 325 mg PO DAILY 06/18/24 06/18/24 atorvastatin 40 mg tablet 40 mg PO QPM 06/18/24 06/18/24 clopidogrel 75 mg tablet 75 mg PO DAILY 06/18/24 06/18/24 famotidine 40 mg tablet 40 mg PO DAILY 06/18/24 06/18/24 fenofibrate nanocrystallized 145 145 mg PO DAILY 06/18/24 06/18/24 mg tablet lisinopril 2.5 mg tablet 2.5 mg PO DAILY 06/18/24 06/18/24 mecobalamin (vitamin B12) 500 mcg mcg PO 06/18/24 06/18/24 chewable tablet metoprolol succinate 100 mg 100 mg PO DAILY 06/18/24 06/18/24 tablet,extended release 24 hr (Toprol XL) nitroglycerin 0.4 mg sublingual 0.4 mg sublingual Q5-15M PRN 06/18/24 06/18/24 tablet vibegron 75 mg tablet (Gemtesa) 75 mg PO DAILY 06/18/24 06/18/24 zinc gluconate 30 mg tablet 30 mg PO DAILY 06/18/24 06/18/24 Previous Rx's ?Medication ?Instructions ?Recorded lidocaine 5 % topical patch 1 patch topical DAILY #30 ea 06/19/24 (Lidoderm) apixaban 5 mg (74 tabs) tablets in See Rx Instructions PO .COMPLEX 08/29/24 a dose pack (Eliquis DVT-PE Treat #74 ea 30D Start) fosfomycin tromethamine 3 gram 1 packet PO .once 1 dose #1 ea 01/25/25 oral packet Allergies Allergy/AdvReac Type Severity Reaction Status Date / Time tramadol Allergy Unknown Verified 02/08/25 11:00 codeine AdvReac Nausea Verified 02/08/25 11:00 Review of Systems Review of Systems ROS Unobtainable: All systems reviewed & are unremarkable except as noted in HPI and below Patient History Medical History Lumbar radiculitis Exam Narrative Exam Narrative: 74-year-old female, A&O decreased compared to prior Initial Vital Signs Initial Vital Signs: Vital Signs Pulse Rate 90 02/08/25 11:04 Pulse Oximetry 96 02/08/25 11:04 Const General: cooperative, healthy appearing, comfortable, well developed and well hydrated Nutritional Appearance: average body habitus [facility] Head: normal to inspection Ears: external ears normal Nose: external nose normal and nares normal Face and sinus: sinuses nontender, face symmetric, ecchymosis not on the right, not on the left and not bilaterally, erythema not on the right, not on the left and not bilaterally and edema not on the right, not on the left and not bilaterally Mouth: lip normal Eyes General: Yes appearance normal, both eyes and all related structures Eyelids: eyelids normal Sclera: sclerae normal Pupils: PERRL Neck Neck: normal visual inspection Resp Effort & Inspection: normal respiratory effort and able to speak in complete sentences Cardio Rate: regular rate Rhythm: regular rhythm Pulses: radial pulses present GI Inspection: normal to inspection and non-distended General: bimanual renal exam normal bilaterally Back/Spine/Pelvis Back: normal to inspection Skin General: no rashes or lesions noted Extrem General: normal to inspection Psych Appearance: grossly normal Mental Status: mental status grossly normal Speech and Movement: speech and movement normal Mood: congruent mood Attitude: cooperative Thought Process: normal Thought Content: normal Judgment: judgment good Course Orders Ordered: Acetaminophen (Acetaminophen 325 Mg Tablet) 650 mg PO Q6H PRN PRN Reason: Fever/Mild Pain (1-3) Last Admin: 02/12/25 08:20 Dose: 650 mg Documented By: Admin: 02/12/25 02:08 Dose: 650 mg Documented By: Admin: 02/11/25 15:22 Dose: 650 mg Documented By: Admin: 02/10/25 10:27 Dose: 650 mg Documented By: Admin: 02/09/25 16:43 Dose: 650 mg Documented By: Admin: 02/08/25 20:20 Dose: 650 mg Documented By: SH Amlodipine Besylate (Amlodipine 5 Mg Tablet) 5 mg PO DAILY [facility] Last Admin: 02/12/25 08:31 Dose: 5 mg Documented By: Admin: 02/11/25 09:42 Dose: 5 mg Documented By: Admin: 02/10/25 08:21 Dose: 5 mg Documented By: Admin: 02/09/25 08:18 Dose: Not Given Documented By: DM Apixaban (Apixaban 5 Mg Tablet) 5 mg PO BID [facility] Last Admin: 02/12/25 08:24 Dose: 5 mg Documented By: Admin: 02/11/25 21:20 Dose: 5 mg Documented By: Admin: 02/11/25 09:42 Dose: 5 mg Documented By: Admin: 02/10/25 20:53 Dose: 5 mg Documented By: Admin: 02/10/25 09:19 Dose: 5 mg Documented By: Admin: 02/09/25 21:16 Dose: 5 mg Documented By: FM Aspirin (Aspirin Ec 325 Mg Tablet) 325 mg PO DAILY [facility] Last Admin: 02/12/25 08:38 Dose: Not Given Documented By: Admin: 02/11/25 09:49 Dose: Not Given Documented By: Admin: 02/10/25 08:21 Dose: Not Given Documented By: Admin: 02/09/25 08:18 Dose: Not Given Documented By: DM Atorvastatin Calcium (Atorvastatin 20 Mg Tablet) 40 mg PO QPM [facility] Last Admin: 02/11/25 17:56 Dose: 40 mg Documented By: Admin: 02/10/25 17:18 Dose: 40 mg Documented By: Admin: 02/09/25 16:44 Dose: 40 mg Documented By: Admin: 02/08/25 17:45 Dose: 40 mg Documented By: CLL Benzocaine (Benzocaine/Menthol 1 Kurt Pkt) 1 each PO Q1HR PRN PRN Reason: Sore Throat Last Admin: 02/12/25 08:21 Dose: 1 each Documented By: Admin: 02/12/25 02:09 Dose: 1 each Documented By: Admin: 02/11/25 21:20 Dose: 1 each Documented By: BARRETT Benzonatate (Benzonatate 100 Mg Capsule) 100 mg PO TID PRN PRN Reason: Cough Last Admin: 02/12/25 12:25 Dose: 100 mg Documented By: DARSHANA Clopidogrel Bisulfate (Clopidogrel 75 Mg Tablet) 75 mg PO DAILY [facility] Last Admin: 02/12/25 08:23 Dose: 75 mg Documented By: Admin: 02/11/25 09:42 Dose: 75 mg Documented By: Admin: 02/10/25 08:22 Dose: 75 mg Documented By: Admin: 02/09/25 08:18 Dose: Not Given Documented By: MARCEL Famotidine (Famotidine 20 Mg Tablet) 20 mg PO DAILY [facility] Last Admin: 02/12/25 08:24 Dose: 20 mg Documented By: Admin: 02/11/25 09:42 Dose: 20 mg Documented By: Admin: 02/10/25 08:21 Dose: 20 mg Documented By: HARMEET Fenofibrate (Fenofibrate, Micronized 67 Mg Capsule) 134 mg PO DAILY [facility] Last Admin: 02/12/25 08:22 Dose: 134 mg Documented By: Admin: 02/11/25 09:42 Dose: 134 mg Documented By: Admin: 02/10/25 08:22 Dose: 134 mg Documented By: Admin: 02/09/25 08:34 Dose: 134 mg Documented By: MARCEL Ertapenem 1 gm/ Sodium (Chloride) 100 mls @ 200 mls/hr IV Q24H [facility] Last Infusion: 02/12/25 13:25 Dose: Infused Documented By: TF Admin: 02/12/25 12:24 Dose: 200 mls/hr Documented By: TF Infusion: 02/11/25 12:00 Dose: Infused Documented By: Admin: 02/11/25 11:23 Dose: 200 mls/hr Documented By: Infusion: 02/10/25 11:12 Dose: Infused Documented By: Admin: 02/10/25 10:30 Dose: 200 mls/hr Documented By: Infusion: 02/09/25 12:04 Dose: Infused Documented By: Admin: 02/09/25 11:34 Dose: 200 mls/hr Documented By: MARCEL Lidocaine (Lidocaine 5% Patch) 1 each TOP DAILY [facility] Last Admin: 02/12/25 08:36 Dose: Not Given Documented By: Admin: 02/11/25 09:43 Dose: 1 each Documented By: Admin: 02/10/25 08:18 Dose: 1 each Documented By: Admin: 02/09/25 08:35 Dose: 1 each Documented By: MARCEL Lidocaine (Remove Lidocaine Patch) 1 each TOP BEDTIME [facility] Last Admin: 02/11/25 21:18 Dose: 1 each Documented By: Admin: 02/10/25 20:53 Dose: 1 each Documented By: Admin: 02/09/25 21:20 Dose: 1 each Documented By: SAWYER Lisinopril (Lisinopril 5 Mg Tablet) 2.5 mg PO DAILY [facility] Last Admin: 02/12/25 08:32 Dose: 2.5 mg Documented By: Admin: 02/11/25 09:42 Dose: 2.5 mg Documented By: Admin: 02/10/25 08:22 Dose: 2.5 mg Documented By: Admin: 02/09/25 08:19 Dose: Not Given Documented By: MARCEL Metoprolol Succinate (Metoprolol Er 50 Mg Tablet) 100 mg PO DAILY [facility] Last Admin: 02/12/25 08:31 Dose: 100 mg Documented By: Admin: 02/11/25 09:42 Dose: 100 mg Documented By: Admin: 02/10/25 08:21 Dose: 100 mg Documented By: Admin: 02/09/25 08:19 Dose: Not Given Documented By: MARCEL Naloxone HCl (Naloxone 0.4 Mg/Ml Vial) 0.2 mg IV Q2MIN PRN PRN Reason: Opiate Reversal Nitroglycerin (Nitroglycerin 0.4 Mg Sl Tab) 0.4 mg SL Q5M PRN PRN Reason: Chest pain Nf - Vibegron ( Gemtesa) 75 Mg Tablet 75 mg PO DAILY [facility] Last Admin: 02/12/25 08:39 Dose: Not Given Documented By: Admin: 02/11/25 09:43 Dose: Not Given Documented By: Admin: 02/10/25 08:24 Dose: Not Given Documented By: Admin: 02/09/25 08:36 Dose: Not Given Documented By: MARCEL Ondansetron HCl (Ondansetron 4 Mg/2 Ml Inj) 4 mg IV Q8HR PRN PRN Reason: Nausea And Vomiting Sodium Chloride (Sodium Chloride 0.9% Flush) 10 ml IV PRN PRN PRN Reason: Flush Sodium Chloride (Sodium Chloride 0.9% Flush) 10 ml IV BID [facility] Last Admin: 02/12/25 08:40 Dose: 10 ml Documented By: ESV Discontinued Medications Apixaban (Apixaban 5 Mg Tablet) 2.5 mg PO BID [facility] Last Admin: 02/09/25 10:35 Dose: 2.5 mg Documented By: MARCEL Apixaban (Apixaban 5 Mg Tablet) 2.5 mg PO NOW ONE Stop: 02/09/25 11:31 Last Admin: 02/09/25 11:34 Dose: 2.5 mg Documented By: MARCEL Doxycycline Hyclate (Doxycycline Hyclate 100 Mg Tablet) 100 mg PO NOW ONE Stop: 02/08/25 11:23 Last Admin: 02/08/25 12:04 Dose: 100 mg Documented By: WALTER Famotidine (Famotidine 20 Mg Tablet) 40 mg PO DAILY [facility] Last Admin: 02/09/25 08:35 Dose: 40 mg Documented By: MARCEL Heparin Sodium (Porcine) (Heparin 5,000 Unit/Ml Vial) 5,000 unit SUBCUT BID [facility] Lactated Ringer's (Lactated Ringers) 1,000 mls @ 1,000 mls/hr IV BOLUS ONE Stop: 02/08/25 12:32 Last Infusion: 02/08/25 13:55 Dose: Infused Documented By: Admin: 02/08/25 12:03 Dose: 1,000 mls/hr Documented By: WALTER Sodium Chloride (Normal Saline 0.9%) 1,000 mls @ 100 mls/hr IV CONT [facility] Last Infusion: 02/10/25 05:10 Dose: Infused Documented By: Infusion: 02/10/25 05:10 Dose: 0 mls/hr Documented By: Admin: 02/10/25 04:58 Dose: 100 mls/hr Documented By: Infusion: 02/10/25 04:15 Dose: Infused Documented By: Admin: 02/09/25 18:15 Dose: 100 mls/hr Documented By: Infusion: 02/09/25 18:15 Dose: Infused Documented By: Admin: 02/09/25 08:32 Dose: 100 mls/hr Documented By: Infusion: 02/09/25 08:32 Dose: Infused Documented By: Admin: 02/08/25 22:53 Dose: 100 mls/hr Documented By: Infusion: 02/08/25 22:53 Dose: Infused Documented By: Admin: 02/08/25 17:43 Dose: 100 mls/hr Documented By: CLL Ceftriaxone Sodium 1,000 mg/ (Sodium Chloride) 100 mls @ 200 mls/hr IV Q24H JER Sodium Chloride (Normal Saline 0.9%) 1,000 mls @ 500 mls/hr IV BOLUS PRN PRN Reason: Fluid replacement NOREPINEPHRINE BIT/0.9 % NACL (Norepinephr 4 Mg/250-0.9% Nacl) 4 mg in 250 mls @ 26.195 mls/hr IV TITRATE JER; Protocol Last Titration: 02/09/25 10:15 Dose: Infused Documented By: Titration: 02/09/25 10:15 Dose: 0 mcg/kg/min, 0 mls/hr Documented By: Titration: 02/09/25 08:45 Dose: 0.01 mcg/kg/min, 2.62 mls/hr Documented By: Titration: 02/09/25 08:27 Dose: 0.02 mcg/kg/min, 5.239 mls/hr Documented By: Titration: 02/09/25 07:55 Dose: 0.03 mcg/kg/min, 7.859 mls/hr Documented By: Titration: 02/09/25 04:03 Dose: 0.05 mcg/kg/min, 13.098 mls/hr Documented By: Titration: 02/09/25 03:44 Dose: 0 mcg/kg/min, 0 mls/hr Documented By: Titration: 02/09/25 03:34 Dose: 0.05 mcg/kg/min, 13.098 mls/hr Documented By: Titration: 02/09/25 03:08 Dose: 0.1 mcg/kg/min, 26.195 mls/hr Documented By: Titration: 02/09/25 02:45 Dose: 0 mcg/kg/min, 0 mls/hr Documented By: Admin: 02/09/25 02:40 Dose: 0.1 mcg/kg/min, 26.195 mls/hr Documented By: SAWYER Sodium Chloride (Normal Saline 0.9%) 500 mls @ 1,000 mls/hr IV BOLUS ONE Stop: 02/09/25 00:16 Last Infusion: 02/09/25 02:39 Dose: Infused Documented By: Admin: 02/09/25 00:16 Dose: 1,000 mls/hr Documented By: ANGELA Sodium Chloride (Normal Saline 0.9%) 500 mls @ 1,000 mls/hr IV BOLUS ONE Stop: 02/09/25 00:18 Last Admin: 02/09/25 01:52 Dose: Not Given Documented By: ANGELA Sodium Chloride (Normal Saline 0.9%) 1,000 mls @ 1,000 mls/hr IV BOLUS PRN PRN Reason: Fluid replacement Last Infusion: 02/09/25 02:09 Dose: Infused Documented By: Admin: 02/08/25 22:00 Dose: 1,000 mls/hr Documented By: ANGELA Piperacillin Sod/Tazobactam (Sod 3.375 gm/ Sodium Chloride) 100 mls @ 25 mls/hr IV Q8H [facility] Piperacillin Sod/Tazobactam (Sod 4.5 gm/ Sodium Chloride) 100 mls @ 200 mls/hr IV NOW ONE Stop: 02/09/25 05:29 Last Admin: 02/09/25 07:38 Dose: Not Given Documented By: MARCEL Piperacillin Sod/Tazobactam (Sod 4.5 gm/ Sodium Chloride) 100 mls @ 200 mls/hr IV NOW ONE Stop: 02/09/25 08:29 Last Infusion: 02/09/25 09:02 Dose: Infused Documented By: Admin: 02/09/25 08:32 Dose: 200 mls/hr Documented By: MARCEL Piperacillin Sod/Tazobactam (Sod 3.375 gm/ Sodium Chloride) 100 mls @ 25 mls/hr IV Q8H JER Naloxone HCl (Naloxone 0.4 Mg/Ml Vial) 0.2 mg IV Q2MIN PRN PRN Reason: Opiate Reversal Non-Formulary Medication (Apixaban [Eliquis Dvt-Pe Treat 30d Start]) 0 mg .ROUTE .COMPLEX JER Ondansetron HCl (Ondansetron 4 Mg/2 Ml Inj) 4 mg IV NOW ONE Stop: 02/08/25 15:00 Last Admin: 02/08/25 16:03 Dose: Not Given Documented By: RLS Vital Signs Vital signs: Vital Signs - 8 hr 02/08/25 11:06 Temperature 98.4 F Pulse Rate 87 Respiratory Rate 14 Blood Pressure 137/71 Pulse Oximetry 93 Oxygen Delivery Method Room Air MDM - Female Genitourinary Lab Data 02/10/25 18:10 02/10/25 06:10 Labs: Lab Results 02/08/25 02/08/25 02/08/25 Range/Units 11:50 11:52 13:52 WBC 8.0 (4.5-11.0) X10^3/uL RBC 4.14 (4.0-5.2) X10^6/uL Hgb 11.7 L (12.0-16.0) g/dL Hct 35.6 L (36-46) % MCV 86.1 (80-100) fL MCH 28.3 (26-34) PG MCHC 32.8 (30-36) % RDW 13.9 (11.6-14.8) % Plt Count 210 (150-400) X10^3/uL Neut % (Auto) 88.4 H (50-75) % Lymph % (Auto) 5.0 L (25-40) % [place] % (Auto) 5.9 (3-14) % Eos % (Auto) 0.4 L (2-4) % Baso % (Auto) 0.3 (0-2) % Neut # (Auto) 7100 H (7693-0356) /uL Lymph # (Auto) 400 L (3537-8681) /uL Meade # (Auto) 500 (0-900) /uL Eos # (Auto) 0 (0-450) /uL Baso # (Auto) 0 (0-100) /uL Sodium 142 (137-145) mmol/L Potassium 3.8 (3.4-5.1) mmol/L Chloride 111 H (98-107) mmol/L Carbon Dioxide 20 L (22-32) mmol/L BUN 27 H (7-17) mg/dL Creatinine 1.41 H (0.52-1.04) mg/dL Estimated GFR 40 L (>60) mL/min BUN/Creatinine Ratio 19.1 (6-22) Glucose 137 H (70-99) mg/dL Lactate 2.1 1.9 (0.7-2.1) mmol/L Calcium 9.3 (8.4-10.2) mg/dL Total Bilirubin 0.7 (0.2-1.3) mg/dL AST 32 (14-36) IU/L ALT 19 (<35) IU/L Alkaline Phosphatase 46 (38-126) U/L Total Protein 7.3 (6.3-8.2) g/dL Albumin 4.4 (3.5-5.0) g/dL Globulin 2.9 (1.7-4.1) g/dL Albumin/Globulin Ratio 1.5 (1.0-2.8) Procalcitonin 0.820 H (<0.5) ng/mL Urine Color Urine Appearance Urine pH (4.5-8.0) Ur Specific [place] (1.000-1.035) Urine Protein (Negative) Urine Glucose (UA) (Negative) g/dL Urine Ketones (NEGATIVE) Urine Occult Blood (Negative) Urine Nitrate (Negative) Urine Bilirubin (NEGATIVE) Urine Urobilinogen (0.2) E.U./dL Ur Leukocyte Esterase (NEGATIVE) Urine RBC (0-5/HPF) Urine WBC (0-5/HPF) Ur Squamous Epith Cells (0-5/HPF) Urine Bacteria (None) Ur Culture Indicated? Vol Urine Centrifuged A.calcoaceticus-baumannii cmplx PCR Not detected (Not Detect) Bacteroides fragilis Not detected (Not Detect) Gabby albicans (PCR) Not detected (Not Detect) Gabby auris (PCR) Not detected (Not Detect) C. glabrata (PCR) Not detected (Not Detect) C. krusei (PCR) Not detected (Not Detect) C. parapsilosis (PCR) Not detected (Not Detect) C. tropicalis (PCR) Not detected (Not Detect) C. neoform/gattii (PCR) Not detected (Not Detect) Enterobacterales (PCR) Detected (Not Detect) E. cloacae complex PCR Not detected (Not Detect) Enterococc faecalis PCR Not detected (Not Detect) Enterococc faecium PCR Not detected (Not Detect) E. coli (PCR) Detected (Not Detect) H. influenzae (PCR) Not detected (Not Detect) Klebsiella aerogenes (PCR) Not detected (Not Detect) Klebsiella oxytoca PCR Not detected (Not Detect) Klebsiella pneumoniae Not detected (Not Detect) List. monocytogenes PCR Not detected (Not Detect) N. meningitidis (PCR) Not detected (Not Detect) Proteus species (PCR) Not detected (Not Detect) Salmonella spp. (PCR) Not detected (Not Detect) Serratia marcescens PCR Not detected (Not Detect) Staphylococcus sp PCR Not detected (Not Detect) Staph aureus (PCR) Not detected (Not Detect) mecA/C & MREJ Resist Gene Not applicable (Not Detect) mecA/C-Methicil Resis Gene Not applicable (Not Detect) mcr-1 Colistin Res Gene PCR Not detected (Not Detect) Staph epidermidis (PCR) Not detected (Not Detect) Staph lugdunensis PCR Not detected (Not Detect) S. maltophilia (PCR) Not detected (Not Detect) Streptococcus sp PCR Not detected (Not Detect) Group A Strep (PCR) Not detected (Not Detect) Strep agalactiae (PCR) Not detected (Not Detect) Strep pneumoniae (PCR) Not detected (Not Detect) P. aeruginosa (PCR) Not detected (Not Detect) Lian/B-Vanco Res Genes Not applicable (Not Detect) blaIMP Car res Gene PCR Not detected (Not Detect) KPC-Carbap Res Gene PCR Not detected (Not Detect) blaNDM Car Res Gene PCR Not detected (Not Detect) OXA-48 Carbapenem Resis Gene (PCR) Not detected (Not Detect) blaVIM Car Res Gene PCR Not detected (Not Detect) CTX-M Gene Resistance (PCR) Detected (Not Detect) 02/08/25 Range/Units 13:55 WBC (4.5-11.0) X10^3/uL RBC (4.0-5.2) X10^6/uL Hgb (12.0-16.0) g/dL Hct (36-46) % MCV (80-100) fL MCH (26-34) PG MCHC (30-36) % RDW (11.6-14.8) % Plt Count (150-400) X10^3/uL Neut % (Auto) (50-75) % Lymph % (Auto) (25-40) % Meade % (Auto) (3-14) % Eos % (Auto) (2-4) % Baso % (Auto) (0-2) % Neut # (Auto) (3345-9510) /uL Lymph # (Auto) (5402-6195) /uL Meade # (Auto) (0-900) /uL Eos # (Auto) (0-450) /uL Baso # (Auto) (0-100) /uL Sodium (137-145) mmol/L Potassium (3.4-5.1) mmol/L Chloride (98-107) mmol/L Carbon Dioxide (22-32) mmol/L BUN (7-17) mg/dL Creatinine (0.52-1.04) mg/dL Estimated GFR (>60) mL/min BUN/Creatinine Ratio (6-22) Glucose (70-99) mg/dL Lactate (0.7-2.1) mmol/L Calcium (8.4-10.2) mg/dL Total Bilirubin (0.2-1.3) mg/dL AST (14-36) IU/L ALT (<35) IU/L Alkaline Phosphatase (38-126) U/L Total Protein (6.3-8.2) g/dL Albumin (3.5-5.0) g/dL Globulin (1.7-4.1) g/dL Albumin/Globulin Ratio (1.0-2.8) Procalcitonin (<0.5) ng/mL Urine Color Yellow Urine Appearance Clear Urine pH 6.5 (4.5-8.0) Ur Specific [place] 1.010 (1.000-1.035) Urine Protein Negative (Negative) Urine Glucose (UA) Negative (Negative) g/dL Urine Ketones Negative (NEGATIVE) Urine Occult Blood 1+ H (Negative) Urine Nitrate Positive H (Negative) Urine Bilirubin Negative (NEGATIVE) Urine Urobilinogen 0.2 (0.2) E.U./dL Ur Leukocyte Esterase 1+ H (NEGATIVE) Urine RBC 1-5/hpf (0-5/HPF) Urine WBC 5-10/hpf H (0-5/HPF) Ur Squamous Epith Cells None seen (0-5/HPF) Urine Bacteria Many (>30) H (None) Ur Culture Indicated? Specimen cultured Vol Urine Centrifuged 10ml (spun) A.calcoaceticus-baumannii cmplx PCR (Not Detect) Bacteroides fragilis (Not Detect) Gabby albicans (PCR) (Not Detect) Gabby auris (PCR) (Not Detect) C. glabrata (PCR) (Not Detect) C. krusei (PCR) (Not Detect) C. parapsilosis (PCR) (Not Detect) C. tropicalis (PCR) (Not Detect) C. neoform/gattii (PCR) (Not Detect) Enterobacterales (PCR) (Not Detect) E. cloacae complex PCR (Not Detect) Enterococc faecalis PCR (Not Detect) Enterococc faecium PCR (Not Detect) E. coli (PCR) (Not Detect) H. influenzae (PCR) (Not Detect) Klebsiella aerogenes (PCR) (Not Detect) Klebsiella oxytoca PCR (Not Detect) Klebsiella pneumoniae (Not Detect) List. monocytogenes PCR (Not Detect) N. meningitidis (PCR) (Not Detect) Proteus species (PCR) (Not Detect) Salmonella spp. (PCR) (Not Detect) Serratia marcescens PCR (Not Detect) Staphylococcus sp PCR (Not Detect) Staph aureus (PCR) (Not Detect) mecA/C & MREJ Resist Gene (Not Detect) mecA/C-Methicil Resis Gene (Not Detect) mcr-1 Colistin Res Gene PCR (Not Detect) Staph epidermidis (PCR) (Not Detect) Staph lugdunensis PCR (Not Detect) S. maltophilia (PCR) (Not Detect) Streptococcus sp PCR (Not Detect) Group A Strep (PCR) (Not Detect) Strep agalactiae (PCR) (Not Detect) Strep pneumoniae (PCR) (Not Detect) P. aeruginosa (PCR) (Not Detect) Lian/B-Vanco Res Genes (Not Detect) blaIMP Car res Gene PCR (Not Detect) KPC-Carbap Res Gene PCR (Not Detect) blaNDM Car Res Gene PCR (Not Detect) OXA-48 Carbapenem Resis Gene (PCR) (Not Detect) blaVIM Car Res Gene PCR (Not Detect) CTX-M Gene Resistance (PCR) (Not Detect) MDM Narrative Medical decision making narrative: Pt presents with AMS/acute delirium. EKG to evaluate for evidence of arrhythmia, Labwork to evaluate for evidence of electrolyte abnormality such as hyponatremia/hypernatremia/hypokalemia/hyperkalemia/hypoglycemia/hyperglycemia/drug drug poisoning/ETOH poisoning, etc. CT brain to evaluate for evidence of head injury/intracranial bleed or mass. Chest x-ray to evaluate for evidence of pneumonia. Monitor, observe Patient with UTI explaining symptoms of delirium Discharge Plan Departure Patient Disposition: Admitted As Inpatient Clinical Impression: Acute delirium Admit Date/Time: 02/08/25 15:28 Admit Provider: Jonn Anderson
[2025-02-08] MEDS: LACTATED RINGERS 1,000 ML 1000 ML IV (12:03)
[2025-02-08] MEDS: DOXYCYCLINE HYCLATE 100 MG TABLET PO (12:04)
--- NOTE | 2025-02-08 12:17 | EKG_ITS ---
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
[2025-02-08 12:20] LABS: Lactate (Lactic Acid) 2.1 mmol/L (0.7-2.1)
[2025-02-08 12:21] LABS: Alanine Aminotransferase 19 IU/L (<35); Albumin 4.4 g/dL (3.5-5.0); Albumin Globulin Ratio 1.5 (1.0-2.8); Alkaline Phosphatase 46 U/L (38-126); Blood Urea Nitrogen 27 mg/dL (7-17); Calcium 9.3 mg/dL (8.4-10.2); Carbon Dioxide 20 mmol/L (22-32); Chloride 111 mmol/L (98-107); Estimated Glomerular Filt Rate 40 mL/min (>60); Globulin 2.9 g/dL (1.7-4.1); Glucose 137 mg/dL (70-99); HEMOLYSIS < 15 (0-50); Potassium 3.8 mmol/L (3.4-5.1); Sodium 142 mmol/L (137-145); Total Protein 7.3 g/dL (6.3-8.2)
[2025-02-08 12:37] LABS: Procalcitonin 0.820 ng/mL (<0.5)
[2025-02-08 13:36] LABS: Reflexed Lactate in 2 Hours Y
[2025-02-08 14:03] LABS: Appearance Urine UA CLEAR; Bilirubin Urine UA NEGATIVE (NEGATIVE); Color Urine UA YELLOW; Glucose Urine UA NEGATIVE (Negative); Ketones Urine UA NEGATIVE (NEGATIVE); Leukocyte Esterase Urine UA 1+ (NEGATIVE); Nitrite Urine UA POSITIVE (Negative); Occult Blood Urine UA 1+ (Negative); Protein Urine UA NEGATIVE (Negative); Specific Gravity Urine UA 1.010 (1.000-1.035); Urobilinogen Urine UA 0.2 E.U./dL (0.2)
[2025-02-08 14:05] LABS: pH Urine UA 6.5 (4.5-8.0)
[2025-02-08 14:10] LABS: Culture Indicated Urine Specimen Cultured
[2025-02-08 14:14] LABS: Lactate 2HR (Lactic Acid Rflx) 1.9 mmol/L (0.7-2.1)
[2025-02-08 14:16] LABS: Add Manual Diff / Slide Review NO; Hematocrit 35.6 % (36-46); Hemoglobin 11.7 g/dL (12.0-16.0); Lymphocytes Absolute Auto 400 /uL (1100-4500); Mean Corpuscular HGB Conc 32.8 % (30-36); Mean Corpuscular Hemoglobin 28.3 PG (26-34); Mean Corpuscular Volume 86.1 fL (80-100); Platelet Count 210 X10^3/uL (150-400)
--- NOTE | 2025-02-08 17:27 | P.PN_ITS ---
Subjective Subjective Date Patient Seen: 02/08/25 Interval history: Chief complaint: UTI with encephalopathy and confusion History of present illness: 02/08: 72-year-old female brought from longterm facility with complaint of bladder pain and difficulty urinating patient is unable to give a reliable history. Past medical history significant for DVT in the distal femoral vein and popliteal vein diagnosed in September Findings in the emergency department significant for White blood cell count of 8000 with 88% neutrophils Sodium 142 potassium 3.8 BUN 27 creatinine 1.4 Procalcitonin 0.8 Urinalysis 5-10 white blood cells per high-power field positive nitrates in greater than 30 bacteria Review of systems: Patient is not able to participate in review of systems due to inability to express Physical exam: Pleasant 74-year-old female appearing older than stated age HEENT unremarkable Neck no JVD Heart rate and rhythm regular Lungs clear Abdomen nontender Extremities no edema Cranial nerves intact No facial asymmetry Lyzoou-dt-seva intact Normal strength x4 Assessment and plan: Urinary tract infection with toxic encephalopathy * Culture urine culture blood * IV ceftriaxone * IV fluids Previous DVT: * Continue apixaban Code status: * Full code blue Disposition: * Inpatient * Estimate 2 days of hospitalization Time based billing: * 55 minutes were evaluated in the management of this patient including [id number] evaluation physical examination discussion with emergency provider review of records review of objective laboratory findings Exam Vital Signs (past 8 hours): - 02/08/25 11:04 02/08/25 11:05 02/08/25 11:05 Temperature Pulse Rate 90 90 Respiratory Rate Blood Pressure 137/71 Pulse Oximetry 96 93 Oxygen Delivery Method Oxygen Flow Rate 02/08/25 11:06 02/08/25 11:56 02/08/25 11:56 Temperature 98.4 F Pulse Rate 87 78 Respiratory Rate 14 Blood Pressure 137/71 121/57 L Pulse Oximetry 93 95 Oxygen Delivery Method Room Air Oxygen Flow Rate 02/08/25 12:05 02/08/25 12:05 02/08/25 12:30 Temperature Pulse Rate 81 88 Respiratory Rate Blood Pressure 124/60 Pulse Oximetry 91 94 Oxygen Delivery Method Oxygen Flow Rate 02/08/25 13:00 02/08/25 13:30 02/08/25 13:56 Temperature Pulse Rate 90 85 Respiratory Rate Blood Pressure 137/70 Pulse Oximetry 94 91 Oxygen Delivery Method Oxygen Flow Rate 02/08/25 13:56 02/08/25 14:00 02/08/25 14:00 Temperature Pulse Rate 88 83 Respiratory Rate Blood Pressure 150/64 H Pulse Oximetry 95 96 Oxygen Delivery Method Oxygen Flow Rate 02/08/25 14:30 02/08/25 14:30 02/08/25 15:00 Temperature Pulse Rate 88 Respiratory Rate Blood Pressure 161/84 H 156/69 H Pulse Oximetry 86 L Oxygen Delivery Method Oxygen Flow Rate 02/08/25 15:00 02/08/25 15:30 02/08/25 15:30 Temperature Pulse Rate 86 87 Respiratory Rate Blood Pressure 141/65 H Pulse Oximetry 94 94 Oxygen Delivery Method Nasal Cannula Oxygen Flow Rate 2.5 02/08/25 16:00 02/08/25 16:01 02/08/25 16:01 Temperature Pulse Rate 89 89 Respiratory Rate 24 Blood Pressure 143/64 H Pulse Oximetry 96 95 Oxygen Delivery Method Nasal Cannula Oxygen Flow Rate 2.5 Oxygen Delivery Method Nasal Cannula Oxygen Flow Rate 2.5 Objective Labs 02/08/25 11:50 02/08/25 11:50 Labs: Laboratory Results - last 24 hr 02/08/25 02/08/25 02/08/25 11:50 13:52 13:55 WBC 8.0 RBC 4.14 Hgb 11.7 L Hct 35.6 L MCV 86.1 MCH 28.3 MCHC 32.8 RDW 13.9 Plt Count 210 Neut % (Auto) 88.4 H Lymph % (Auto) 5.0 L [place] % (Auto) 5.9 Eos % (Auto) 0.4 L Baso % (Auto) 0.3 Neut # (Auto) 7100 H Lymph # (Auto) 400 L [place] # (Auto) 500 Eos # (Auto) 0 Baso # (Auto) 0 Sodium 142 Potassium 3.8 Chloride 111 H Carbon Dioxide 20 L BUN 27 H Creatinine 1.41 H Estimated GFR 40 L BUN/Creatinine Ratio 19.1 Glucose 137 H Lactate 2.1 1.9 Calcium 9.3 Total Bilirubin 0.7 AST 32 ALT 19 Alkaline Phosphatase 46 Total Protein 7.3 Albumin 4.4 Globulin 2.9 Albumin/Globulin Ratio 1.5 Procalcitonin 0.820 H Urine Color Yellow Urine Appearance Clear Urine pH 6.5 Ur Specific [place] 1.010 Urine Protein Negative Urine Glucose (UA) Negative Urine Ketones Negative Urine Occult Blood 1+ H Urine Nitrate Positive H Urine Bilirubin Negative Urine Urobilinogen 0.2 Ur Leukocyte Esterase 1+ H Urine RBC 1-5/hpf Urine WBC 5-10/hpf H Ur Squamous Epith Cells None seen Urine Bacteria Many (>30) H Ur Culture Indicated? Specimen cultured Vol Urine Centrifuged 10ml (spun) PFSH Medical History Lumbar radiculitis Social History Smoking Status: Former smoker alcohol intake: never Assessment & Plan Time-Based Coding :: [TOTAL MINUTES] spent with patient and on the chart (including review of chart, obtaining history, exam, reviewing outside data, placing orders, documenting exam and treatment plan, and counseling patient) on [DATE]. Quality VTE Deep Vein Thrombosis/Pulmonary Embolism Present on Admission: No
[2025-02-08] MEDS: SODIUM CHLORIDE 0.9% 1,000 ML 100 ML IV ×2 (17:43→22:53)
[2025-02-08] MEDS: ATORVASTATIN 20 MG TABLET 40 MG PO (17:45)
--- NOTE | 2025-02-08 19:02 | PC.NURSE ---
Patient is sleeping, she has been admitted for uti. Fell asleep through dinner. She is tolerating ivf.
[2025-02-08] MEDS: ACETAMINOPHEN 325 MG TABLET 650 MG PO (20:20)
[2025-02-08] MEDS: SODIUM CHLORIDE 0.9% 1,000 ML 1000 ML IV (22:00)
[2025-02-08 23:30] LABS: Acinetobacter calcoa-baumannii Not Detected (Not Detect); Bacteroides fragilis Not Detected (Not Detect); CTX-M Resistance Detected (Not Detect); Candida auris Not Detected (Not Detect); Candida glabrata Not Detected (Not Detect); Cryptococcus neoformans/gatti Not Detected (Not Detect); Enterobacterales Detected (Not Detect); Enterococcus faecalis Not Detected (Not Detect); Enterococcus faecium Not Detected (Not Detect); IMP Resistance Not Detected (Not Detect); KPC Resistance Not Detected (Not Detect); Klebsiella aerogenes Not Detected (Not Detect); NDM Resistance Not Detected (Not Detect); OXA-48-like Resistance Not Detected (Not Detect); Proteus species Not Detected (Not Detect); Serratia marcescens Not Detected (Not Detect); Staphylococcus epidermidis Not Detected (Not Detect); Staphylococcus lugdunensis Not Detected (Not Detect); Staphylococcus species Not Detected (Not Detect); Stenotrophomonas maltophilia Not Detected (Not Detect); Streptococcus agalactiae (Gr B Not Detected (Not Detect); Streptococcus pneumonia Not Detected (Not Detect); Streptococcus pyogenes (Gr A) Not Detected (Not Detect); Streptococcus species Not Detected (Not Detect); VIM Resistance Not Detected (Not Detect); mcr-1 Resistance Not Detected (Not Detect)
[2025-02-09] VITALS (69 sets, daily range): BP systolic 86–142; BP diastolic 40–76; PULSE 41–67; RESP 14–50; TEMP 36.6–36.8; O2SAT 93–99
[2025-02-09] MEDS: SODIUM CHLORIDE 0.9% 500 ML 1000 ML IV (00:16)
--- NOTE | 2025-02-09 02:39 | PC.NURSE ---
Late entry for 02/08/25- 21:16. Patient blood pressure 100/43 with MAP of 61, HR 61. Dr. Bledsoe ordered 1L NS bolus. Blood pressure rechecked after bolus, 84/45, MAP 57, HR 60. Dr. Bledsoe ordered 500mL bolus. Blood pressure after 500 ML bolus- 86/40, MAP of 56, HR 55. Patient asymptomatic. Patient transferred to ICU at 02:20.
[2025-02-09] MEDS: NOREPINEPHRINE BIT/0.9 % NACL 4 MG/250 ML PLAST..BAG 26.195 MG IV (02:40)
--- NOTE | 2025-02-09 04:39 | PM.EVENT ---
Event Note Date Patient Seen: 02/09/25 Time Patient Seen: 01:56 Event Note (Rapid Response, Code, or fall): Patient became hypotensive. IVF bolus given and was still hypotensive. IV zosyn ordered to broaden antibiotics and Ceftriaxone dc. IV levophed started and transfer to ICU. Will need PICC in AM and also will recheck lactic acid.
[2025-02-09 05:48] LABS: Add Manual Diff / Slide Review NO; Hematocrit 30.1 % (36-46); Hemoglobin 9.9 g/dL (12.0-16.0); Lymphocytes Absolute Auto 2200 /uL (1100-4500); Mean Corpuscular HGB Conc 33.0 % (30-36); Mean Corpuscular Hemoglobin 28.4 PG (26-34); Mean Corpuscular Volume 86.0 fL (80-100); Platelet Count 216 X10^3/uL (150-400)
[2025-02-09 05:52] LABS: Blood Urea Nitrogen 23 mg/dL (7-17); Calcium 7.5 mg/dL (8.4-10.2); Carbon Dioxide 19 mmol/L (22-32); Chloride 114 mmol/L (98-107); Estimated Glomerular Filt Rate 46 mL/min (>60); Glucose 124 mg/dL (70-99); HEMOLYSIS < 15 (0-50); Potassium 3.6 mmol/L (3.4-5.1); Sodium 140 mmol/L (137-145)
[2025-02-09 06:10] LABS: Lactate (Lactic Acid) 1.1 mmol/L (0.7-2.1)
[2025-02-09] MEDS: SODIUM CHLORIDE 0.9% 1,000 ML 100 ML IV ×2 (08:32→18:15)
[2025-02-09] MEDS: PIPERACILLIN/TAZO 4.5 GM in SODIUM CHLORIDE 0.9% 100 ML IV (08:32)
[2025-02-09] MEDS: FENOFIBRATE, MICRONIZED 67 MG CAPSULE 134 MG PO (08:34)
[2025-02-09] MEDS: FAMOTIDINE 20 MG TABLET 40 MG PO (08:35)
[2025-02-09] MEDS: LIDOCAINE 5% PATCH 1 EACH TOP (08:35)
[2025-02-09] MEDS: APIXABAN 5 MG TABLET 2.5 MG PO ×2 (10:35→11:34)
[2025-02-09] MEDS: ERTAPENEM 1 GM in SODIUM CHLORIDE 0.9% 100 ML IV (11:34)
--- NOTE | 2025-02-09 13:59 | P.PN_ITS ---
Subjective Subjective Date Patient Seen: 02/09/25 Interval history: Chief complaint: UTI with encephalopathy and confusion History of present illness: 02/08: 72-year-old female brought from alf facility with complaint of bladder pain and difficulty urinating patient is unable to give a reliable history. 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 IVF bolus given and was still hypotensive. IV zosyn ordered to broaden antibiotics and Ceftriaxone dc. IV levophed started and transfer to ICU. Will need PICC in AM and also will recheck lactic acid. 02/09: Patient was able to be weaned off of norepinephrine culture results came back with ESBL UTI and started on ertapenem based on sensitivities 02/06: Reduced systolic blood pressures this morning antihypertensives were held Review of systems: No fever or chills rigors No chest pain shortness for breath No nausea vomiting diarrhea No urinary symptoms No paresis Physical exam: Pleasant 74-year-old female appearing older than stated age HEENT unremarkable Neck no JVD Heart rate and rhythm regular Lungs clear Abdomen nontender Extremities no edema Cranial nerves intact No facial asymmetry Aypsbk-[id number] intact Normal strength x4 1. Escherichia coli M.I.C. RX --------- --- * Amoxicillin/Clavulanate 16 I * Ampicillin >=32 R * Ampicillin/Sulbactam >=32 R * Aztreonam 32 R * Cefazolin >=32 R * Cefepime R * Ceftazidime >=32 R * Ceftriaxone >=64 R * Cefuroxime >=64 R * Ciprofloxacin >=4 R * Ertapenem <=0.12 S * Gentamicin >=16 R * Levofloxacin >=8 R * Meropenem <=0.25 S * Nitrofurantoin <=16 S * Tetracycline <=1 S * Trimethoprim/Sulfamethoxazole <=20 S * Piperacillin/Tazobactam 8 S Assessment and plan: ESBL Urinary tract infection with toxic encephalopathy * Culture urine culture blood consistent with ESBL antibiotics switched to Invanz * Repeat blood culture in 24 hours * IV fluids History of CVA x2 * Continue aspirin Plavix and Eliquis for tertiary prevention * Continue high-intensity statin * No signs of recurrence Previous DVT: * Continue apixaban Code status: * Full code blue Disposition: * Inpatient * Estimate 2 days of hospitalization Time based billing: * 55 minutes were evaluated in the management of this patient including [id number] evaluation physical examination discussion with emergency provider review of records review of objective laboratory findings Exam Vital Signs (past 8 hours): - 02/09/25 06:00 02/09/25 06:00 02/09/25 06:00 Temperature Pulse Rate 48 L 48 L Respiratory Rate 15 15 Blood Pressure 116/55 L 116/55 L Pulse Oximetry 96 96 Oxygen Delivery Method Oxygen Flow Rate 2 02/09/25 06:30 02/09/25 06:30 02/09/25 07:00 Temperature 98.1 F Pulse Rate 48 L Respiratory Rate 15 Blood Pressure 104/57 L Pulse Oximetry 95 Oxygen Delivery Method Oxygen Flow Rate 02/09/25 07:00 02/09/25 07:00 02/09/25 07:21 Temperature Pulse Rate 51 L 48 L Respiratory Rate 16 16 Blood Pressure 114/56 L Pulse Oximetry 95 95 Oxygen Delivery Method Oxygen Flow Rate 02/09/25 07:21 02/09/25 07:30 02/09/25 07:30 Temperature Pulse Rate 46 L Respiratory Rate 16 Blood Pressure 117/58 L 109/57 L Pulse Oximetry 96 Oxygen Delivery Method Oxygen Flow Rate 02/09/25 07:45 02/09/25 07:45 02/09/25 08:00 Temperature Pulse Rate 48 L 67 Respiratory Rate 16 16 Blood Pressure 112/59 L Pulse Oximetry 95 95 Oxygen Delivery Method Oxygen Flow Rate 02/09/25 08:00 02/09/25 08:15 02/09/25 08:15 Temperature Pulse Rate 52 L Respiratory Rate 16 Blood Pressure 107/57 L 117/56 L Pulse Oximetry 95 Oxygen Delivery Method Oxygen Flow Rate 02/09/25 08:30 02/09/25 08:30 02/09/25 08:30 Temperature Pulse Rate 52 L Respiratory Rate 16 Blood Pressure 92/51 L Pulse Oximetry 95 Oxygen Delivery Method Nasal Cannula Oxygen Flow Rate 02/09/25 08:45 02/09/25 08:45 02/09/25 09:00 Temperature 97.9 F Pulse Rate 54 L Respiratory Rate 18 Blood Pressure 111/56 L Pulse Oximetry 96 Oxygen Delivery Method Oxygen Flow Rate 02/09/25 09:00 02/09/25 09:00 02/09/25 09:15 Temperature Pulse Rate 61 62 Respiratory Rate 24 29 H Blood Pressure 126/60 Pulse Oximetry 98 96 Oxygen Delivery Method Oxygen Flow Rate 02/09/25 09:15 02/09/25 09:30 02/09/25 09:31 Temperature Pulse Rate 65 65 Respiratory Rate 35 H 35 H Blood Pressure 134/58 L Pulse Oximetry 94 96 Oxygen Delivery Method Oxygen Flow Rate 02/09/25 09:31 02/09/25 09:45 02/09/25 09:45 Temperature Pulse Rate 63 Respiratory Rate 21 Blood Pressure 109/56 L 101/51 L Pulse Oximetry 96 Oxygen Delivery Method Oxygen Flow Rate 02/09/25 10:00 02/09/25 10:00 02/09/25 10:15 Temperature Pulse Rate 65 58 L Respiratory Rate 31 H 21 Blood Pressure 117/56 L Pulse Oximetry 96 96 Oxygen Delivery Method Oxygen Flow Rate 02/09/25 10:15 02/09/25 10:30 02/09/25 10:30 Temperature Pulse Rate 57 L Respiratory Rate 22 Blood Pressure 105/54 L 97/54 L Pulse Oximetry 96 Oxygen Delivery Method Oxygen Flow Rate 02/09/25 10:45 02/09/25 10:45 02/09/25 10:53 Temperature Pulse Rate 57 L 55 L Respiratory Rate 23 24 Blood Pressure 98/49 L Pulse Oximetry 95 95 Oxygen Delivery Method Oxygen Flow Rate 02/09/25 10:53 02/09/25 11:00 02/09/25 11:00 Temperature Pulse Rate 57 L Respiratory Rate 25 H Blood Pressure 96/51 L 98/55 L Pulse Oximetry 95 Oxygen Delivery Method Oxygen Flow Rate 02/09/25 11:15 02/09/25 11:15 02/09/25 11:30 Temperature Pulse Rate 57 L 55 L Respiratory Rate 37 H 20 Blood Pressure 103/61 Pulse Oximetry 95 96 Oxygen Delivery Method Oxygen Flow Rate 02/09/25 11:30 02/09/25 11:45 02/09/25 11:45 Temperature Pulse Rate 53 L Respiratory Rate 19 Blood Pressure 105/51 L 107/52 L Pulse Oximetry 96 Oxygen Delivery Method Oxygen Flow Rate 02/09/25 12:00 02/09/25 12:00 02/09/25 12:00 Temperature 98.2 F Pulse Rate 54 L Respiratory Rate 21 Blood Pressure 114/56 L Pulse Oximetry 98 Oxygen Delivery Method Oxygen Flow Rate 02/09/25 12:15 02/09/25 12:15 02/09/25 12:30 Temperature Pulse Rate 60 62 Respiratory Rate 50 H 31 H Blood Pressure 109/53 L Pulse Oximetry 96 96 Oxygen Delivery Method Oxygen Flow Rate 02/09/25 12:31 02/09/25 12:31 02/09/25 13:00 Temperature Pulse Rate 61 58 L Respiratory Rate 31 H 22 Blood Pressure 106/57 L Pulse Oximetry 95 95 Oxygen Delivery Method Oxygen Flow Rate 02/09/25 13:01 02/09/25 13:01 Temperature Pulse Rate 62 Respiratory Rate 23 Blood Pressure 118/57 L Pulse Oximetry 95 Oxygen Delivery Method Oxygen Flow Rate Oxygen Delivery Method Nasal Cannula Oxygen Flow Rate 2 Objective Labs 02/09/25 04:57 02/09/25 04:57 Labs: Laboratory Results - last 24 hr 02/08/25 02/08/25 02/08/25 11:50 11:52 13:52 WBC 8.0 RBC 4.14 Hgb 11.7 L Hct 35.6 L MCV 86.1 MCH 28.3 MCHC 32.8 RDW 13.9 Plt Count 210 Neut % (Auto) 88.4 H Lymph % (Auto) 5.0 L [place] % (Auto) 5.9 Eos % (Auto) 0.4 L Baso % (Auto) 0.3 Neut # (Auto) 7100 H Lymph # (Auto) 400 L [place] # (Auto) 500 Eos # (Auto) 0 Baso # (Auto) 0 Sodium Potassium Chloride Carbon Dioxide BUN Creatinine Estimated GFR BUN/Creatinine Ratio Glucose Lactate 1.9 Calcium Urine Color Urine Appearance Urine pH Ur Specific [place] Urine Protein Urine Glucose (UA) Urine Ketones Urine Occult Blood Urine Nitrate Urine Bilirubin Urine Urobilinogen Ur Leukocyte Esterase Urine RBC Urine WBC Ur Squamous Epith Cells Urine Bacteria Ur Culture Indicated? Vol Urine Centrifuged A.calcoaceticus-baumannii cmplx PCR Not detected Bacteroides fragilis Not detected Gabby albicans (PCR) Not detected Gabby auris (PCR) Not detected C. glabrata (PCR) Not detected C. krusei (PCR) Not detected C. parapsilosis (PCR) Not detected C. tropicalis (PCR) Not detected C. neoform/gattii (PCR) Not detected Enterobacterales (PCR) Detected E. cloacae complex PCR Not detected Enterococc faecalis PCR Not detected Enterococc faecium PCR Not detected E. coli (PCR) Detected H. influenzae (PCR) Not detected Klebsiella aerogenes (PCR) Not detected Klebsiella oxytoca PCR Not detected Klebsiella pneumoniae Not detected List. monocytogenes PCR Not detected N. meningitidis (PCR) Not detected Proteus species (PCR) Not detected Salmonella spp. (PCR) Not detected Serratia marcescens PCR Not detected Staphylococcus sp PCR Not detected Staph aureus (PCR) Not detected mecA/C & MREJ Resist Gene Not applicable mecA/C-Methicil Resis Gene Not applicable mcr-1 [place] Res Gene PCR Not detected Staph epidermidis (PCR) Not detected Staph lugdunensis PCR Not detected S. maltophilia (PCR) Not detected Streptococcus sp PCR Not detected Group A Strep (PCR) Not detected Strep agalactiae (PCR) Not detected Strep pneumoniae (PCR) Not detected P. aeruginosa (PCR) Not detected Lian/B-Vanco Res Genes Not applicable blaIMP Car res Gene PCR Not detected KPC-Carbap Res Gene PCR Not detected blaNDM Car Res Gene PCR Not detected OXA-48 Carbapenem Resis Gene (PCR) Not detected blaVIM Car Res Gene PCR Not detected CTX-M Gene Resistance (PCR) Detected 02/08/25 02/09/25 02/09/25 13:55 04:57 05:42 WBC 20.1 H D RBC 3.51 L Hgb 9.9 L Hct 30.1 L MCV 86.0 MCH 28.4 MCHC 33.0 RDW 14.2 Plt Count 216 Neut % (Auto) 81.6 H Lymph % (Auto) 10.7 L [place] % (Auto) 7.4 Eos % (Auto) 0.0 L Baso % (Auto) 0.3 Neut # (Auto) 74725 H Lymph # (Auto) 2200 [place] # (Auto) 1500 H Eos # (Auto) 0 Baso # (Auto) 100 Sodium 140 Potassium 3.6 Chloride 114 H Carbon Dioxide 19 L BUN 23 H Creatinine 1.24 H Estimated GFR 46 L BUN/Creatinine Ratio 18.5 Glucose 124 H Lactate 1.1 Calcium 7.5 L Urine Color Yellow Urine Appearance Clear Urine pH 6.5 Ur Specific [place] 1.010 Urine Protein Negative Urine Glucose (UA) Negative Urine Ketones Negative Urine Occult Blood 1+ H Urine Nitrate Positive H Urine Bilirubin Negative Urine Urobilinogen 0.2 Ur Leukocyte Esterase 1+ H Urine RBC 1-5/hpf Urine WBC 5-10/hpf H Ur Squamous Epith Cells None seen Urine Bacteria Many (>30) H Ur Culture Indicated? Specimen cultured Vol Urine Centrifuged 10ml (spun) A.calcoaceticus-baumannii cmplx PCR Bacteroides fragilis Gabby albicans (PCR) Gabby auris (PCR) C. glabrata (PCR) C. krusei (PCR) C. parapsilosis (PCR) C. tropicalis (PCR) C. neoform/gattii (PCR) Enterobacterales (PCR) E. cloacae complex PCR Enterococc faecalis PCR Enterococc faecium PCR E. coli (PCR) H. influenzae (PCR) Klebsiella aerogenes (PCR) Klebsiella oxytoca PCR Klebsiella pneumoniae List. monocytogenes PCR N. meningitidis (PCR) Proteus species (PCR) Salmonella spp. (PCR) Serratia marcescens PCR Staphylococcus sp PCR Staph aureus (PCR) mecA/C & MREJ Resist Gene mecA/C-Methicil Resis Gene mcr-1 [place] Res Gene PCR Staph epidermidis (PCR) Staph lugdunensis PCR S. maltophilia (PCR) Streptococcus sp PCR Group A Strep (PCR) Strep agalactiae (PCR) Strep pneumoniae (PCR) P. aeruginosa (PCR) Lian/B-Vanco Res Genes blaIMP Car res Gene PCR KPC-Carbap Res Gene PCR blaNDM Car Res Gene PCR OXA-48 Carbapenem Resis Gene (PCR) blaVIM Car Res Gene PCR CTX-M Gene Resistance (PCR) PFSH Medical History Lumbar radiculitis Social History Smoking Status: Former smoker alcohol intake: never Assessment & Plan Time-Based Coding :: [TOTAL MINUTES] spent with patient and on the chart (including review of chart, obtaining history, exam, reviewing outside data, placing orders, documenting exam and treatment plan, and counseling patient) on [DATE]. Quality VTE Deep Vein Thrombosis/Pulmonary Embolism Present on Admission: No
--- NOTE | 2025-02-09 14:06 | PM.HP.1 ---
History of Present Illness History of Present Illness Date Patient Seen: 02/08/25 Date of Onset of Symptoms: 02/08/25 Chief complaint: Pain in bladder Narrative: Chief complaint: UTI with encephalopathy and confusion History of present illness: 02/08: 72-year-old female brought from long term facility with complaint of bladder pain and difficulty urinating patient is unable to give a reliable history. 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 on combination Plavix aspirin and Eliquis for secondary prevention Findings in the emergency department significant for White blood cell count of 8000 with 88% neutrophils Sodium 142 potassium 3.8 BUN 27 creatinine 1.4 Procalcitonin 0.8 Urinalysis 5-10 white blood cells per high-power field positive nitrates in greater than 30 bacteria Review of systems: No fever or chills rigors No chest pain shortness for breath No nausea vomiting diarrhea No urinary symptoms No paresis Physical exam: Pleasant 74-year-old female appearing older than stated age HEENT unremarkable Neck no JVD Heart rate and rhythm regular Lungs clear Abdomen nontender Extremities no edema Cranial nerves intact No facial asymmetry [id number] intact Normal strength x4 1. Escherichia coli M.I.C. RX --------- --- * Amoxicillin/Clavulanate 16 I * Ampicillin >=32 R * Ampicillin/Sulbactam >=32 R * Aztreonam 32 R * Cefazolin >=32 R * Cefepime R * Ceftazidime >=32 R * Ceftriaxone >=64 R * Cefuroxime >=64 R * Ciprofloxacin >=4 R * Ertapenem <=0.12 S * Gentamicin >=16 R * Levofloxacin >=8 R * Meropenem <=0.25 S * Nitrofurantoin <=16 S * Tetracycline <=1 S * Trimethoprim/Sulfamethoxazole <=20 S * Piperacillin/Tazobactam 8 S Assessment and plan: ESBL Urinary tract infection with toxic encephalopathy Culture urine culture blood consistent with ESBL antibiotics switched to Invanz Repeat blood culture in 24 hours IV fluids History of CVA x2 Continue aspirin Plavix and Eliquis for tertiary prevention Continue high-intensity statin No signs of recurrence Previous DVT: Continue apixaban Code status: Full code blue Disposition: Inpatient Estimate 2 days of hospitalization Time based billin minutes were evaluated in the management of this patient including [id number] evaluation physical examination discussion with emergency provider review of records review of objective laboratory findings [facility] Medical History Lumbar radiculitis Social History Smoking Status: Former smoker alcohol intake: never Meds Home Medications and Allergies Home Medications ?Medication ?Instructions ?Recorded ?Confirmed ?Type amlodipine 5 mg tablet 5 mg PO DAILY 06/18/24 06/18/24 History aspirin 325 mg tablet 325 mg PO DAILY 06/18/24 06/18/24 History atorvastatin 40 mg tablet 40 mg PO QPM 06/18/24 06/18/24 History clopidogrel 75 mg tablet 75 mg PO DAILY 06/18/24 06/18/24 History famotidine 40 mg tablet 40 mg PO DAILY 06/18/24 06/18/24 History fenofibrate nanocrystallized 145 145 mg PO DAILY 06/18/24 06/18/24 History mg tablet lisinopril 2.5 mg tablet 2.5 mg PO DAILY 06/18/24 06/18/24 History mecobalamin (vitamin B12) 500 mcg mcg PO 06/18/24 06/18/24 History chewable tablet metoprolol succinate 100 mg 100 mg PO DAILY 06/18/24 06/18/24 History tablet,extended release 24 hr (Toprol XL) nitroglycerin 0.4 mg sublingual 0.4 mg sublingual Q5-15M PRN 06/18/24 06/18/24 History tablet vibegron 75 mg tablet (Gemtesa) 75 mg PO DAILY 06/18/24 06/18/24 History zinc gluconate 30 mg tablet 30 mg PO DAILY 06/18/24 06/18/24 History lidocaine 5 % topical patch 1 patch topical DAILY #30 ea 06/19/24 Rx (Lidoderm) apixaban 5 mg (74 tabs) tablets in See Rx Instructions PO .COMPLEX 08/29/24 Rx a dose pack (Eliquis DVT-PE Treat #74 ea 30D Start) fosfomycin tromethamine 3 gram 1 packet PO .once 1 dose #1 ea 01/25/25 Rx oral packet Allergies Allergy/AdvReac Type Severity Reaction Status Date / Time tramadol Allergy Unknown Verified 02/08/25 11:00 codeine AdvReac Nausea Verified 02/08/25 11:00 Exam Vital Signs (past 8 hours): - 02/09/25 06:30 02/09/25 06:30 02/09/25 07:00 Temperature 98.1 F Pulse Rate 48 L Respiratory Rate 15 Blood Pressure 104/57 L Pulse Oximetry 95 Oxygen Delivery Method 02/09/25 07:00 02/09/25 07:00 02/09/25 07:21 Temperature Pulse Rate 51 L 48 L Respiratory Rate 16 16 Blood Pressure 114/56 L Pulse Oximetry 95 95 Oxygen Delivery Method 02/09/25 07:21 02/09/25 07:30 02/09/25 07:30 Temperature Pulse Rate 46 L Respiratory Rate 16 Blood Pressure 117/58 L 109/57 L Pulse Oximetry 96 Oxygen Delivery Method 02/09/25 07:45 02/09/25 07:45 02/09/25 08:00 Temperature Pulse Rate 48 L 67 Respiratory Rate 16 16 Blood Pressure 112/59 L Pulse Oximetry 95 95 Oxygen Delivery Method 02/09/25 08:00 02/09/25 08:15 02/09/25 08:15 Temperature Pulse Rate 52 L Respiratory Rate 16 Blood Pressure 107/57 L 117/56 L Pulse Oximetry 95 Oxygen Delivery Method 02/09/25 08:30 02/09/25 08:30 02/09/25 08:30 Temperature Pulse Rate 52 L Respiratory Rate 16 Blood Pressure 92/51 L Pulse Oximetry 95 Oxygen Delivery Method Nasal Cannula 02/09/25 08:45 02/09/25 08:45 02/09/25 09:00 Temperature 97.9 F Pulse Rate 54 L Respiratory Rate 18 Blood Pressure 111/56 L Pulse Oximetry 96 Oxygen Delivery Method 02/09/25 09:00 02/09/25 09:00 02/09/25 09:15 Temperature Pulse Rate 61 62 Respiratory Rate 24 29 H Blood Pressure 126/60 Pulse Oximetry 98 96 Oxygen Delivery Method 02/09/25 09:15 02/09/25 09:30 02/09/25 09:31 Temperature Pulse Rate 65 65 Respiratory Rate 35 H 35 H Blood Pressure 134/58 L Pulse Oximetry 94 96 Oxygen Delivery Method 02/09/25 09:31 02/09/25 09:45 02/09/25 09:45 Temperature Pulse Rate 63 Respiratory Rate 21 Blood Pressure 109/56 L 101/51 L Pulse Oximetry 96 Oxygen Delivery Method 02/09/25 10:00 02/09/25 10:00 02/09/25 10:15 Temperature Pulse Rate 65 58 L Respiratory Rate 31 H 21 Blood Pressure 117/56 L Pulse Oximetry 96 96 Oxygen Delivery Method 02/09/25 10:15 02/09/25 10:30 02/09/25 10:30 Temperature Pulse Rate 57 L Respiratory Rate 22 Blood Pressure 105/54 L 97/54 L Pulse Oximetry 96 Oxygen Delivery Method 02/09/25 10:45 02/09/25 10:45 02/09/25 10:53 Temperature Pulse Rate 57 L 55 L Respiratory Rate 23 24 Blood Pressure 98/49 L Pulse Oximetry 95 95 Oxygen Delivery Method 02/09/25 10:53 02/09/25 11:00 02/09/25 11:00 Temperature Pulse Rate 57 L Respiratory Rate 25 H Blood Pressure 96/51 L 98/55 L Pulse Oximetry 95 Oxygen Delivery Method 02/09/25 11:15 02/09/25 11:15 02/09/25 11:30 Temperature Pulse Rate 57 L 55 L Respiratory Rate 37 H 20 Blood Pressure 103/61 Pulse Oximetry 95 96 Oxygen Delivery Method 02/09/25 11:30 02/09/25 11:45 02/09/25 11:45 Temperature Pulse Rate 53 L Respiratory Rate 19 Blood Pressure 105/51 L 107/52 L Pulse Oximetry 96 Oxygen Delivery Method 02/09/25 12:00 02/09/25 12:00 02/09/25 12:00 Temperature 98.2 F Pulse Rate 54 L Respiratory Rate 21 Blood Pressure 114/56 L Pulse Oximetry 98 Oxygen Delivery Method 02/09/25 12:15 02/09/25 12:15 02/09/25 12:30 Temperature Pulse Rate 60 62 Respiratory Rate 50 H 31 H Blood Pressure 109/53 L Pulse Oximetry 96 96 Oxygen Delivery Method 02/09/25 12:31 02/09/25 12:31 02/09/25 13:00 Temperature Pulse Rate 61 58 L Respiratory Rate 31 H 22 Blood Pressure 106/57 L Pulse Oximetry 95 95 Oxygen Delivery Method 02/09/25 13:01 02/09/25 13:01 02/09/25 13:30 Temperature Pulse Rate 62 63 Respiratory Rate 23 22 Blood Pressure 118/57 L Pulse Oximetry 95 95 Oxygen Delivery Method 02/09/25 13:31 02/09/25 13:31 02/09/25 13:39 Temperature Pulse Rate 64 Respiratory Rate 22 Blood Pressure 93/50 L 102/51 L Pulse Oximetry 95 Oxygen Delivery Method 02/09/25 13:39 02/09/25 14:00 02/09/25 14:00 Temperature Pulse Rate 58 L 58 L Respiratory Rate 19 20 Blood Pressure 98/52 L Pulse Oximetry 96 96 Oxygen Delivery Method Oxygen Delivery Method Nasal Cannula Oxygen Flow Rate 2 Objective Labs 02/09/25 04:57 02/09/25 04:57 Labs: Laboratory Results - last 24 hr 02/08/25 02/08/25 02/08/25 11:50 11:52 13:52 WBC 8.0 RBC 4.14 Hgb 11.7 L Hct 35.6 L MCV 86.1 MCH 28.3 MCHC 32.8 RDW 13.9 Plt Count 210 Neut % (Auto) 88.4 H Lymph % (Auto) 5.0 L Simpson % (Auto) 5.9 Eos % (Auto) 0.4 L Baso % (Auto) 0.3 Neut # (Auto) 7100 H Lymph # (Auto) 400 L Simpson # (Auto) 500 Eos # (Auto) 0 Baso # (Auto) 0 Sodium Potassium Chloride Carbon Dioxide BUN Creatinine Estimated GFR BUN/Creatinine Ratio Glucose Lactate 1.9 Calcium Urine RBC Urine WBC Ur Squamous Epith Cells Urine Bacteria Ur Culture Indicated? Vol Urine Centrifuged A.calcoaceticus-baumannii cmplx PCR Not detected Bacteroides fragilis Not detected Gabby albicans (PCR) Not detected Gabby auris (PCR) Not detected C. glabrata (PCR) Not detected C. krusei (PCR) Not detected C. parapsilosis (PCR) Not detected C. tropicalis (PCR) Not detected C. neoform/gattii (PCR) Not detected Enterobacterales (PCR) Detected E. cloacae complex PCR Not detected Enterococc faecalis PCR Not detected Enterococc faecium PCR Not detected E. coli (PCR) Detected H. influenzae (PCR) Not detected Klebsiella aerogenes (PCR) Not detected Klebsiella oxytoca PCR Not detected Klebsiella pneumoniae Not detected List. monocytogenes PCR Not detected N. meningitidis (PCR) Not detected Proteus species (PCR) Not detected Salmonella spp. (PCR) Not detected Serratia marcescens PCR Not detected Staphylococcus sp PCR Not detected Staph aureus (PCR) Not detected mecA/C & MREJ Resist Gene Not applicable mecA/C-Methicil Resis Gene Not applicable mcr-1 Colistin Res Gene PCR Not detected Staph epidermidis (PCR) Not detected Staph lugdunensis PCR Not detected S. maltophilia (PCR) Not detected Streptococcus sp PCR Not detected Group A Strep (PCR) Not detected Strep agalactiae (PCR) Not detected Strep pneumoniae (PCR) Not detected P. aeruginosa (PCR) Not detected Lian/B-Vanco Res Genes Not applicable blaIMP Car res Gene PCR Not detected KPC-Carbap Res Gene PCR Not detected blaNDM Car Res Gene PCR Not detected OXA-48 Carbapenem Resis Gene (PCR) Not detected blaVIM Car Res Gene PCR Not detected CTX-M Gene Resistance (PCR) Detected 02/08/25 02/09/25 02/09/25 13:55 04:57 05:42 WBC 20.1 H D RBC 3.51 L Hgb 9.9 L Hct 30.1 L MCV 86.0 MCH 28.4 MCHC 33.0 RDW 14.2 Plt Count 216 Neut % (Auto) 81.6 H Lymph % (Auto) 10.7 L Simpson % (Auto) 7.4 Eos % (Auto) 0.0 L Baso % (Auto) 0.3 Neut # (Auto) 53397 H Lymph # (Auto) 2200 Simpson # (Auto) 1500 H Eos # (Auto) 0 Baso # (Auto) 100 Sodium 140 Potassium 3.6 Chloride 114 H Carbon Dioxide 19 L BUN 23 H Creatinine 1.24 H Estimated GFR 46 L BUN/Creatinine Ratio 18.5 Glucose 124 H Lactate 1.1 Calcium 7.5 L Urine RBC 1-5/hpf Urine WBC 5-10/hpf H Ur Squamous Epith Cells None seen Urine Bacteria Many (>30) H Ur Culture Indicated? Specimen cultured Vol Urine Centrifuged 10ml (spun) A.calcoaceticus-baumannii cmplx PCR Bacteroides fragilis Gabby albicans (PCR) Gabby auris (PCR) C. glabrata (PCR) C. krusei (PCR) C. parapsilosis (PCR) C. tropicalis (PCR) C. neoform/gattii (PCR) Enterobacterales (PCR) E. cloacae complex PCR Enterococc faecalis PCR Enterococc faecium PCR E. coli (PCR) H. influenzae (PCR) Klebsiella aerogenes (PCR) Klebsiella oxytoca PCR Klebsiella pneumoniae List. monocytogenes PCR N. meningitidis (PCR) Proteus species (PCR) Salmonella spp. (PCR) Serratia marcescens PCR Staphylococcus sp PCR Staph aureus (PCR) mecA/C & MREJ Resist Gene mecA/C-Methicil Resis Gene mcr-1 Colistin Res Gene PCR Staph epidermidis (PCR) Staph lugdunensis PCR S. maltophilia (PCR) Streptococcus sp PCR Group A Strep (PCR) Strep agalactiae (PCR) Strep pneumoniae (PCR) P. aeruginosa (PCR) Lian/B-Vanco Res Genes blaIMP Car res Gene PCR KPC-Carbap Res Gene PCR blaNDM Car Res Gene PCR OXA-48 Carbapenem Resis Gene (PCR) blaVIM Car Res Gene PCR CTX-M Gene Resistance (PCR) Assessment & Plan Time-Based Coding :: [TOTAL MINUTES] spent with patient and on the chart (including review of chart, obtaining history, exam, reviewing outside data, placing orders, documenting exam and treatment plan, and counseling patient) on [DATE]. Quality VTE Deep Vein Thrombosis/Pulmonary Embolism Present on Admission: No
--- NOTE | 2025-02-09 16:07 | CM.DANOTE ---
DCP Assessment note pt is a 74yo F admitted with UTI/confusion, had a hypotensive crisis overnight, led to her being in the ICU. per provider, no clear DC Timeline at this time. per RN, doing better, off drip, probably could be floor care. confusion improved significantly. PRINTER SLOTTER HELPER met with pt in room, introduced self and role. pt live at [facility]. uses walker at baseline, no O2. on 2ltrs O2 at this time. hx of [facility]. no hx of SNF. has not been OOB since admission, may need PT eval to go back to [facility]. PRINTER SLOTTER HELPER, to best of ability, answered insurance questions. pt agreeable to return to [facility]. CM team to coordinate with [facility] tomorrow, f/u about need for PT eval Thu. P: anticipate return tot [facility] when medically stable, may need a few days IV abx. CM team will continue to follow closely for DCP Coordination ADIA Covarrubias Discharge Planning/Care Management CM Discharge Assessment Start: 02/08/25 16:37 Freq: Status: Active Protocol: Document 02/09/25 16:04 (Rec: 02/09/25 16:05 [id number]) Discharge Planning Assessment Assigned Discharge ADIA Cedeno Oracle Analyst Insurance [employer] MCR DPOA/Assigned Swathi, friend Designee Name Contact Information [phone] Advance Directives? Yes Advance Directives No on File History Provided By Patient,Medical Record Prior Living Assisted Living Arrangements Comment [facility] Household Members none Type of Relies on Others transporation used prior to admit Facility Name [facility] Admitted From: Willing to Return to Yes Facility? Is patient alert and Yes oriented? Needs Assistance Meal Prep,Managing Medications,Home Chores / Shopping With DME Already Rented / FWW / Walker,Cane Owned Comment mainly uses walker Discharge Plan Assisted Living Facility Transportation facility transport Arrangement Referrals Initiated None needed Whiteboard Updated Yes in Patient Room with name and ext. # of Wood Fence E[employer]ctor Review Status In Process Please Provide Date 02/09/25 Initial DC Assessment Was Performed Next Review Type Continued Stay Review
[2025-02-09] MEDS: ACETAMINOPHEN 325 MG TABLET 650 MG PO (16:43)
[2025-02-09] MEDS: ATORVASTATIN 20 MG TABLET 40 MG PO (16:44)
[2025-02-09] MEDS: APIXABAN 5 MG TABLET PO (21:16)
[2025-02-09] MEDS: REMOVE LIDOCAINE PATCH 1 EACH TOP (21:20)
[2025-02-10] VITALS (37 sets, daily range): BP systolic 111–152; BP diastolic 56–76; PULSE 60–82; RESP 16–47; TEMP 36.5–36.8; O2SAT 92–98
[2025-02-10] MEDS: SODIUM CHLORIDE 0.9% 1,000 ML 100 ML IV (04:58)
[2025-02-10 06:38] LABS: Blood Urea Nitrogen 21 mg/dL (7-17); Calcium 7.6 mg/dL (8.4-10.2); Carbon Dioxide 19 mmol/L (22-32); Chloride 115 mmol/L (98-107); Estimated Glomerular Filt Rate 51 mL/min (>60); Glucose 93 mg/dL (70-99); HEMOLYSIS < 15 (0-50); Potassium 3.7 mmol/L (3.4-5.1); Sodium 141 mmol/L (137-145)
[2025-02-10] MEDS: LIDOCAINE 5% PATCH 1 EACH TOP (08:18)
[2025-02-10] MEDS: METOPROLOL ER 50 MG TABLET 100 MG PO (08:21)
[2025-02-10] MEDS: FAMOTIDINE 20 MG TABLET PO (08:21)
[2025-02-10] MEDS: CLOPIDOGREL 75 MG TABLET PO (08:22)
[2025-02-10] MEDS: FENOFIBRATE, MICRONIZED 67 MG CAPSULE 134 MG PO (08:22)
[2025-02-10] MEDS: APIXABAN 5 MG TABLET PO ×2 (09:19→20:53)
[2025-02-10] MEDS: ACETAMINOPHEN 325 MG TABLET 650 MG PO (10:27)
[2025-02-10] MEDS: ERTAPENEM 1 GM in SODIUM CHLORIDE 0.9% 100 ML IV (10:30)
--- NOTE | 2025-02-10 10:48 | CM.DPC ---
Addendum entered by Vielka Brunner RN 02/10/25 12:34: CM spoke with patient regarding SNF to complete her 14 days of IV Ertapenem. Patient is agreeable to [facility] to complete the above. Addendum entered by Vielka Brunner RN 02/10/25 10:52: Ertapenem 1 gm QD. Original Note: Repeat Blood Culture today. If negative PICC/Midline to be place for a total of 14 days of IV abx. Start date 02/09. End 02/22.
--- NOTE | 2025-02-10 11:02 | P.PN_ITS ---
Subjective Subjective Date Patient Seen: 02/10/25 Interval history: Chief complaint: UTI with encephalopathy and confusion History of present illness: 02/08: 72-year-old female [facility] with complaint of bladder pain and difficulty urinating patient is unable to give a reliable history. 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 IVF bolus given and was still hypotensive. IV zosyn ordered to broaden antibiotics and Ceftriaxone dc. IV levophed started and transfer to ICU. Will need PICC in AM and also will recheck lactic acid. 02/09: Patient was able to be weaned off of norepinephrine culture results came back with ESBL UTI and started on ertapenem based on sensitivities 02/06: Reduced systolic blood pressures this morning antihypertensives were held 02/10: Review of systems: No fever or chills rigors No chest pain shortness for breath No nausea vomiting diarrhea No urinary symptoms No paresis Physical exam: Pleasant 74-year-old female appearing older than stated age HEENT unremarkable Neck no JVD Heart rate and rhythm regular Lungs clear Abdomen nontender Extremities no edema Cranial nerves intact No facial asymmetry [id number]-[id number] intact Normal strength x4 1. Escherichia coli M.I.C. RX --------- --- * Amoxicillin/Clavulanate 16 I * Ampicillin >=32 R * Ampicillin/Sulbactam >=32 R * Aztreonam 32 R * Cefazolin >=32 R * Cefepime R * Ceftazidime >=32 R * Ceftriaxone >=64 R * Cefuroxime >=64 R * Ciprofloxacin >=4 R * Ertapenem <=0.12 S * Gentamicin >=16 R * Levofloxacin >=8 R * Meropenem <=0.25 S * Nitrofurantoin <=16 S * Tetracycline <=1 S * Trimethoprim/Sulfamethoxazole <=20 S * Piperacillin/Tazobactam 8 S Assessment and plan: ESBL Urinary tract infection with toxic encephalopathy encephalopathy is now resolved * Culture urine culture blood consistent with ESBL antibiotics switched to Invanz * Repeat blood culture 02/10 * IV fluids can be stopped * PICC line after 2nd called blood culture negative for bacteremia likely Tuesday 02/13: And discharge for total of 14 days of Invanz through 02/22 History of CVA x2 * Continue aspirin Plavix and Eliquis for tertiary prevention * Continue high-intensity statin * No signs of recurrence Previous DVT: * Continue apixaban Code status: * Full code blue Disposition: * Inpatient * Estimate 2 days of hospitalization Time based billing: * 35 minutes were evaluated in the management of this patient including [id number] evaluation physical examination discussion with emergency provider review of records review of objective laboratory findings Exam Vital Signs (past 8 hours): - 02/10/25 03:30 02/10/25 03:31 02/10/25 03:31 Temperature Pulse Rate 68 68 Respiratory Rate 18 17 Blood Pressure 129/61 Pulse Oximetry 96 96 02/10/25 04:00 02/10/25 04:00 02/10/25 04:30 Temperature Pulse Rate 69 68 Respiratory Rate 19 18 Blood Pressure 130/62 Pulse Oximetry 94 98 02/10/25 04:30 02/10/25 05:00 02/10/25 05:00 Temperature Pulse Rate 68 Respiratory Rate 22 Blood Pressure 146/65 H 137/60 Pulse Oximetry 97 02/10/25 05:30 02/10/25 05:30 02/10/25 06:00 Temperature Pulse Rate 66 Respiratory Rate 17 Blood Pressure 136/63 127/60 Pulse Oximetry 97 02/10/25 06:00 02/10/25 06:30 02/10/25 06:31 Temperature Pulse Rate 67 71 69 Respiratory Rate 17 31 H 23 Blood Pressure Pulse Oximetry 95 96 96 02/10/25 06:31 02/10/25 07:00 02/10/25 07:00 Temperature Pulse Rate 64 Respiratory Rate 25 H Blood Pressure 129/60 134/63 Pulse Oximetry 96 02/10/25 07:30 02/10/25 07:30 02/10/25 07:48 Temperature Pulse Rate 68 67 Respiratory Rate 22 47 H Blood Pressure 131/73 Pulse Oximetry 95 02/10/25 08:00 02/10/25 08:02 Temperature 97.7 F Pulse Rate Respiratory Rate Blood Pressure 135/65 Pulse Oximetry Oxygen Delivery Method Nasal Cannula Oxygen Flow Rate 2 Objective Labs 02/09/25 04:57 02/10/25 06:10 Labs: Laboratory Results - last 24 hr 02/08/25 02/10/25 11:52 06:10 Sodium 141 Potassium 3.7 Chloride 115 H Carbon Dioxide 19 L BUN 21 H Creatinine 1.14 H Estimated GFR 51 L BUN/Creatinine Ratio 18.4 Glucose 93 Calcium 7.6 L A.calcoaceticus-baumannii cmplx PCR Not detected Bacteroides fragilis Not detected Gabby albicans (PCR) Not detected Gabby auris (PCR) Not detected C. glabrata (PCR) Not detected C. krusei (PCR) Not detected C. parapsilosis (PCR) Not detected C. tropicalis (PCR) Not detected C. neoform/gattii (PCR) Not detected Enterobacterales (PCR) Detected E. cloacae complex PCR Not detected Enterococc faecalis PCR Not detected Enterococc faecium PCR Not detected E. coli (PCR) Detected H. influenzae (PCR) Not detected Klebsiella aerogenes (PCR) Not detected Klebsiella oxytoca PCR Not detected Klebsiella pneumoniae Not detected List. monocytogenes PCR Not detected N. meningitidis (PCR) Not detected Proteus species (PCR) Not detected Salmonella spp. (PCR) Not detected Serratia marcescens PCR Not detected Staphylococcus sp PCR Not detected Staph aureus (PCR) Not detected mecA/C & MREJ Resist Gene Not applicable mecA/C-Methicil Resis Gene Not applicable mcr-1 Colistin Res Gene PCR Not detected Staph epidermidis (PCR) Not detected Staph lugdunensis PCR Not detected S. maltophilia (PCR) Not detected Streptococcus sp PCR Not detected Group A Strep (PCR) Not detected Strep agalactiae (PCR) Not detected Strep pneumoniae (PCR) Not detected P. aeruginosa (PCR) Not detected Lian/B-Vanco Res Genes Not applicable blaIMP Car res Gene PCR Not detected KPC-Carbap Res Gene PCR Not detected blaNDM Car Res Gene PCR Not detected OXA-48 Carbapenem Resis Gene (PCR) Not detected blaVIM Car Res Gene PCR Not detected CTX-M Gene Resistance (PCR) Detected PFSH Medical History Lumbar radiculitis Social History household members: none Smoking Status: Former smoker alcohol intake: never Assessment & Plan Time-Based Coding :: [TOTAL MINUTES] spent with patient and on the chart (including review of chart, obtaining history, exam, reviewing outside data, placing orders, documenting exam and treatment plan, and counseling patient) on [DATE]. Quality VTE Deep Vein Thrombosis/Pulmonary Embolism Present on Admission: No
--- NOTE | 2025-02-10 14:26 | DIET.CONS ---
Dietary Consultation Note Admission Date: 02/08/2025 15:28 Assessment: 74 y F admitted for sepsis. Dietitian screened for MNA score. Met with pt at bedside. Reports lower than normal appetite past 2-3 days (50-75% of what she normally does), but that she is feeling better and her appetite is improving again, but normal appetite outside of that. No recent weight loss. Pt had lunch tray in front of her that was around 75% consumed Ht: 147.32 cm Wt: 73.9 kg BMI: 32.1 UBW: 72.2 kg on 06/18/24, 69.4 kg on 09/23/24, 70 kg on 01/25/25; no significant wt changes Last BM: 02/10/25 (02/10/25 09:06) MNA: 10 Scar Score: 21 Diet: 02/08/25 Dinner General (Regular) Diet Diet Modifications: Nutrition Percent Meal Consumed 85 02/09/25 18:00 Percent Meal Consumed 25% 02/08/25 18:35 Labs: RBC 3.51 X10^6/uL (4.0-5.2) L 02/09/25 04:57 Hgb 9.9 g/dL (12.0-16.0) L 02/09/25 04:57 Hct 30.1 % (36-46) L 02/09/25 04:57 Creatinine 1.14 mg/dL (0.52-1.04) H 02/10/25 06:10 Lactate 1.1 mmol/L (0.7-2.1) 02/09/25 05:42 Nutrition Diagnosis: none at this time Interventions: monitor po intakes, consider ONS if multiple <75% Monitoring/Evaluations: po intakes Electronically Signed by: Alem Salinas 02/10/25 14:26 Clinical Dietitian [address] [id number]
[2025-02-10] MEDS: ATORVASTATIN 20 MG TABLET 40 MG PO (17:18)
--- NOTE | 2025-02-10 18:07 | PC.NURSE ---
Pt OOB in chair most of shift, walked in hallway using FWW, stand by assist. 1x bm, with good appetite. Plan to transfer thursday to SNF for continued IV antibiotics.
[2025-02-10 18:22] LABS: Add Manual Diff / Slide Review NO; Hematocrit 31.3 % (36-46); Hemoglobin 10.5 g/dL (12.0-16.0); Lymphocytes Absolute Auto 1600 /uL (1100-4500); Mean Corpuscular HGB Conc 33.6 % (30-36); Mean Corpuscular Hemoglobin 28.6 PG (26-34); Mean Corpuscular Volume 85.4 fL (80-100); Platelet Count 202 X10^3/uL (150-400)
[2025-02-10] MEDS: REMOVE LIDOCAINE PATCH 1 EACH TOP (20:53)
[2025-02-11] VITALS (10 sets, daily range): BP systolic 128–169; BP diastolic 59–74; PULSE 46–72; RESP 16–20; TEMP 36.2–37.4; O2SAT 93–98
--- NOTE | 2025-02-11 08:34 | P.PN_ITS ---
Subjective Subjective Interval history: Hospital course: 02/08: 72-year-old female [facility] from [facility] with complaint of bladder pain and difficulty urinating patient is unable to give a reliable history. 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 Event Note Date Patient Seen: 02/09/25 Time Patient Seen: 01:56 Event Note (Rapid Response, Code, or fall): Patient became hypotensive. IVF bolus given and was still hypotensive. IV zosyn ordered to broaden antibiotics and Ceftriaxone dc. IV levophed started and transfer to ICU. Will need PICC in AM and also will recheck lactic acid. 02/09: Patient was able to be weaned off of norepinephrine culture results came back with ESBL UTI and started on ertapenem based on sensitivities 02/06: Reduced systolic blood pressures this morning antihypertensives were held 02/10: ESBL UTI. S: She was doing well today, no dysuria, hematuria, or abdominal pain. No fevers overnight. No disorientation. O: NAD, alert and oriented. Fluent speech. Lungs are clear, normal rate and effort. Heart is regular, no murmur gallop or rub. Abdomen is soft, non distended. Extremities are free of edema. A/P: 1. ESBL Urinary tract infection with toxic encephalopathy encephalopathy is now resolved. Blood cx negative. * Monitor blood cultures, these remained negative. Anticipate IV antibiotics through the weekend and a probable 7 day total course of ertapenem. 2. History of CVA x2 (remote). * Continue aspirin Plavix and Eliquis for tertiary prevention * Continue high-intensity statin 3. Hypertension, stable. On lisinopril. PLAN: -continue ertapenem, anticipate PICC on Thursday. Exam Vital Signs (past 8 hours): - 02/11/25 04:00 02/11/25 08:27 Temperature 99.4 F 97.1 F L Pulse Rate 68 58 L Respiratory Rate 20 16 Blood Pressure 151/69 H 128/59 L Pulse Oximetry 97 95 Oxygen Flow Rate 0 0 Oxygen Delivery Method Nasal Cannula Oxygen Flow Rate 0 Objective Labs 02/10/25 18:10 02/10/25 06:10 Labs: Laboratory Results - last 24 hr 02/10/25 18:10 WBC 9.2 D RBC 3.67 L Hgb 10.5 L Hct 31.3 L MCV 85.4 MCH 28.6 MCHC 33.6 RDW 14.1 Plt Count 202 Neut % (Auto) 69.7 Lymph % (Auto) 17.2 L [place] % (Auto) 8.9 Eos % (Auto) 3.7 Baso % (Auto) 0.5 Neut # (Auto) 6400 Lymph # (Auto) 1600 [place] # (Auto) 800 Eos # (Auto) 300 Baso # (Auto) 0 PFSH Medical History Lumbar radiculitis Social History household members: none Smoking Status: Former smoker alcohol intake: never Assessment & Plan Time-Based Coding :: [TOTAL MINUTES] spent with patient and on the chart (including review of chart, obtaining history, exam, reviewing outside data, placing orders, documenting exam and treatment plan, and counseling patient) on [DATE]. Quality VTE Deep Vein Thrombosis/Pulmonary Embolism Present on Admission: No
[2025-02-11] MEDS: APIXABAN 5 MG TABLET PO ×2 (09:42→21:20)
[2025-02-11] MEDS: FENOFIBRATE, MICRONIZED 67 MG CAPSULE 134 MG PO (09:42)
[2025-02-11] MEDS: FAMOTIDINE 20 MG TABLET PO (09:42)
[2025-02-11] MEDS: CLOPIDOGREL 75 MG TABLET PO (09:42)
[2025-02-11] MEDS: METOPROLOL ER 50 MG TABLET 100 MG PO (09:42)
[2025-02-11] MEDS: LIDOCAINE 5% PATCH 1 EACH TOP (09:43)
[2025-02-11] MEDS: ERTAPENEM 1 GM in SODIUM CHLORIDE 0.9% 100 ML IV (11:23)
--- NOTE | 2025-02-11 12:21 | CM.DPNOTE ---
DCP Note REFERRAL RN reviewed EMR per Dank, cultures pending, will determine length of IV abx. potentially may only need 7 days, would likely finish while here. per Rain at [facility], can accept, just cannot submit for auth until Thursday (pt has [employer]?). if only needs 7 days IV abx, may be better to just finish here (already on day 3 or 4?) if longer, will pursue SNF auth for dc to [facility] to complete abx. REFERRAL RN attempted to meet with pt in room to update, sleeping heavily, allowed to rest. P: either finish IV ABX here vs dc to SNF pending length of IV abx. if no SNF, dc to [facility]. will continue to follow closely for DCP coordination ADIA Covarrubias
[2025-02-11] MEDS: ACETAMINOPHEN 325 MG TABLET 650 MG PO (15:22)
[2025-02-11] MEDS: ATORVASTATIN 20 MG TABLET 40 MG PO (17:56)
[2025-02-11] MEDS: REMOVE LIDOCAINE PATCH 1 EACH TOP (21:18)
[2025-02-11] MEDS: BENZOCAINE/MENTHOL 1 LOZ PKT 1 EACH PO (21:20)
[2025-02-12] VITALS (12 sets, daily range): BP systolic 128–158; BP diastolic 62–74; PULSE 62–70; RESP 16–18; TEMP 36.6; O2SAT 88–96
[2025-02-12] MEDS: ACETAMINOPHEN 325 MG TABLET 650 MG PO ×3 (02:08→17:15)
[2025-02-12] MEDS: BENZOCAINE/MENTHOL 1 LOZ PKT 1 EACH PO ×3 (02:09→20:28)
[2025-02-12] MEDS: FENOFIBRATE, MICRONIZED 67 MG CAPSULE 134 MG PO (08:22)
[2025-02-12] MEDS: CLOPIDOGREL 75 MG TABLET PO (08:23)
[2025-02-12] MEDS: FAMOTIDINE 20 MG TABLET PO (08:24)
[2025-02-12] MEDS: APIXABAN 5 MG TABLET PO ×2 (08:24→20:28)
[2025-02-12] MEDS: METOPROLOL ER 50 MG TABLET 100 MG PO (08:31)
--- NOTE | 2025-02-12 08:39 | PM.PN.1 ---
Subjective Subjective Interval history: Hospital course: 02/08: 72-year-old female brought from [facility] facility with complaint of bladder pain and difficulty urinating patient is unable to give a reliable history. 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 Event Note Date Patient Seen: 02/09/25 Time Patient Seen: :56 Event Note (Rapid Response, Code, or fall): Patient became hypotensive. IVF bolus given and was still hypotensive. IV zosyn ordered to broaden antibiotics and Ceftriaxone dc. IV levophed started and transfer to ICU. Will need PICC in AM and also will recheck lactic acid. 02/09: Patient was able to be weaned off of norepinephrine culture results came back with ESBL UTI and started on ertapenem based on sensitivities 02/06: Reduced systolic blood pressures this morning antihypertensives were held 02/10: ESBL UTI. 02/11: Alert, no pain or confusion. S: She has a new a new cough, and some chest pain with coughing. No fevers, chills. No urinary symptoms. She was on day 4 of ertapenem for an ESBL UTI. Anticipate 7 days of antibiotics. O: NAD, alert and oriented. Fluent speech. Lungs are clear, normal rate and effort. Heart is regular, Systolic murmur and no gallop or rub. Abdomen is soft, non distended. Extremities are free of edema. A/P: 1. ESBL Urinary tract infection with toxic encephalopathy encephalopathy is now resolved. Blood cx negative. Monitor blood cultures, these remain negative. Anticipate IV antibiotics through the weekend and a probable 7 day total course of Ertapenem. 2. History of CVA x2 (remote). Continue aspirin Plavix and Eliquis for tertiary prevention Continue high-intensity statin. 3. Hypertension, stable. On lisinopril. PLAN: -continue ertapenem, anticipate PICC on Thursday. -Nares swab, Tessalon. Anticipate probable discharge to [facility] to complete IV antibiotics through Thursday. We will need access on Thursday (midline). Exam Vital Signs (past 8 hours): - 02/12/25 03:00 02/12/25 08:31 02/12/25 08:32 Pulse Rate 70 68 64 Respiratory Rate 16 Blood Pressure 158/72 H 138/74 138/74 Pulse Oximetry 96 Oxygen Delivery Method Room Air Oxygen Flow Rate 0 Objective Labs 02/10/25 18:10 02/10/25 06:10 [facility] Medical History Lumbar radiculitis Social History household members: none Smoking Status: Former smoker alcohol intake: never Assessment & Plan Time-Based Coding :: [TOTAL MINUTES] spent with patient and on the chart (including review of chart, obtaining history, exam, reviewing outside data, placing orders, documenting exam and treatment plan, and counseling patient) on [DATE]. Quality VTE Deep Vein Thrombosis/Pulmonary Embolism Present on Admission: No
[2025-02-12] MEDS: SODIUM CHLORIDE 0.9% FLUSH 10 ML IV ×2 (08:40→20:28)
[2025-02-12] MEDS: ERTAPENEM 1 GM in SODIUM CHLORIDE 0.9% 100 ML IV (12:24)
[2025-02-12] MEDS: BENZONATATE 100 MG CAPSULE PO ×2 (12:25→20:28)
[2025-02-12 12:46] LABS: Influenza A - CEPHEID Flu A NEGATIVE (NEGATIVE); Influenza B - CEPHEID Flu B NEGATIVE (NEGATIVE)
[2025-02-12 12:49] LABS: COVID-19 CEPHEID 4-PLEX PCR Negative (Negative)
--- NOTE | 2025-02-12 13:09 | CM.DPNOTE ---
DCP Note BIOSOLIDS MANAGEMENT TECHNICIAN reviewed EMR per Dank, timeline still unknown for length of IV abx at this time. currently day 4. will pursue PICC placement Thursday. P: dc to [facility] if senior care IV abx needed, auth pending, PASRR needed. vs if 7 days IV abx, likely finish course here if cannot get auth in time and return to [facility]. no one to coordinate with at [facility] on Thursday. Will continue to follow closely for DCP Coordination ADIA Covarruibas
[2025-02-12] MEDS: ATORVASTATIN 20 MG TABLET 40 MG PO (17:16)
[2025-02-13] VITALS (8 sets, daily range): BP systolic 119–151; BP diastolic 56–71; PULSE 63–75; RESP 16–18; TEMP 36.4–36.6; O2SAT 94–98
[2025-02-13] MEDS: ACETAMINOPHEN 325 MG TABLET 650 MG PO ×3 (01:29→21:01)
--- NOTE | 2025-02-13 07:44 | PM.PN.1 ---
Subjective Subjective Date Patient Seen: 02/13/25 Interval history: 02/08: 72-year-old female brought from long term facility with complaint of bladder pain and difficulty urinating patient is unable to give a reliable history. 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 Event Note Date Patient Seen: 02/09/25 Time Patient Seen: :56 Event Note (Rapid Response, Code, or fall): Patient became hypotensive. IVF bolus given and was still hypotensive. IV zosyn ordered to broaden antibiotics and Ceftriaxone dc. IV levophed started and transfer to ICU. Will need PICC in AM and also will recheck lactic acid. 02/09: Patient was able to be weaned off of norepinephrine culture results came back with ESBL UTI and started on ertapenem based on sensitivities 02/06: Reduced systolic blood pressures this morning antihypertensives were held 02/10: ESBL UTI. 02/11: Alert, no pain or confusion. 02/12: She has a new a new cough, and some chest pain with coughing. No fevers, chills. No urinary symptoms. She was on day 4 of ertapenem for an ESBL UTI. Anticipate 7 days of antibiotics. 02/13: Last labs from 02/10 reviewed. Hemoglobin was 10.5. Midline IV placed today. Pending insurance approval for transfer to [facility] to complete antibiotics. She does already live at assisted living [facility] and follows with Dr. Richards. O: NAD, alert and oriented. Fluent speech. Lungs are clear, normal rate and effort. Heart is regular, No murmur and no gallop or rub. Abdomen is soft, non distended. Extremities are free of edema. A/P: 1. ESBL Urinary tract infection with toxic encephalopathy is now resolved. Blood cx negative. BC remain negative. Plan 7 day total course of Ertapenem. 2. History of CVA x2 (remote). Continue aspirin Plavix and Eliquis for tertiary prevention Continue high-intensity statin. 3. Hypertension, stable. On lisinopril. PLAN: -continue ertapenem, Midline placed. -Nares swab, Tessalon. Anticipate probable discharge to [facility] to complete IV antibiotics through Thursday. Exam Vital Signs (past 8 hours): Oxygen Delivery Method Room Air Oxygen Flow Rate 0 Objective Labs 02/10/25 18:10 02/10/25 06:10 Labs: Laboratory Results - last 24 hr 02/12/25 11:28 SARS-CoV-2 (PCR) Negative Influenza A (RT-PCR) Flu a negative Influenza B (RT-PCR) Flu b negative RSV (PCR) Negative [facility] Medical History Lumbar radiculitis Social History household members: none Smoking Status: Former smoker alcohol intake: never Assessment & Plan Time-Based Coding :: [TOTAL MINUTES] spent with patient and on the chart (including review of chart, obtaining history, exam, reviewing outside data, placing orders, documenting exam and treatment plan, and counseling patient) on [DATE]. Quality VTE Deep Vein Thrombosis/Pulmonary Embolism Present on Admission: No
[2025-02-13] MEDS: FENOFIBRATE, MICRONIZED 67 MG CAPSULE 134 MG PO (09:49)
[2025-02-13] MEDS: FAMOTIDINE 20 MG TABLET PO (09:51)
[2025-02-13] MEDS: METOPROLOL ER 50 MG TABLET 100 MG PO (09:51)
[2025-02-13] MEDS: CLOPIDOGREL 75 MG TABLET PO (09:51)
[2025-02-13] MEDS: APIXABAN 5 MG TABLET PO ×2 (09:51→21:01)
[2025-02-13] MEDS: LIDOCAINE 5% PATCH 1 EACH TOP (09:52)
[2025-02-13] MEDS: BENZONATATE 100 MG CAPSULE PO ×2 (10:00→21:01)
[2025-02-13] MEDS: ERTAPENEM 1 GM in SODIUM CHLORIDE 0.9% 100 ML IV (11:23)
[2025-02-13] MEDS: SODIUM CHLORIDE 0.9% FLUSH 10 ML IV ×2 (11:24→21:01)
[2025-02-13] MEDS: ATORVASTATIN 20 MG TABLET 40 MG PO (18:52)
[2025-02-14] MEDS: BENZONATATE 100 MG CAPSULE PO ×3 (05:28→22:07)
[2025-02-14] MEDS: ACETAMINOPHEN 325 MG TABLET 650 MG PO ×3 (05:31→17:41)
--- NOTE | 2025-02-14 07:28 | PM.PN.1 ---
Subjective Subjective Date Patient Seen: 02/14/25 Interval history: 02/08: 72-year-old female brought from residential facility with complaint of bladder pain and difficulty urinating patient is unable to give a reliable history. 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 Event Note Date Patient Seen: 02/09/25 Time Patient Seen: :56 Event Note (Rapid Response, Code, or fall): Patient became hypotensive. IVF bolus given and was still hypotensive. IV zosyn ordered to broaden antibiotics and Ceftriaxone dc. IV levophed started and transfer to ICU. Will need PICC in AM and also will recheck lactic acid. 02/09: Patient was able to be weaned off of norepinephrine culture results came back with ESBL UTI and started on ertapenem based on sensitivities 02/06: Reduced systolic blood pressures this morning antihypertensives were held 02/10: ESBL UTI. 02/11: Alert, no pain or confusion. 02/12: She has a new a new cough, and some chest pain with coughing. No fevers, chills. No urinary symptoms. She was on day 4 of ertapenem for an ESBL UTI. Anticipate 7 days of antibiotics. 02/13: Last labs from 02/10 reviewed. Hemoglobin was 10.5. Midline IV placed today. Pending insurance approval for transfer to [facility] to complete antibiotics. She does already live at assisted living [facility] and follows with Dr. Richards. 02/14: Have not received insurance authorization for IV antibiotics at residential [facility] so will likely discharge back to [facility] tomorrow after completing 7 days antibiotics. O: NAD, alert and oriented. Fluent speech. Lungs are clear, normal rate and effort. Heart is regular, No murmur and no gallop or rub. Abdomen is soft, non distended. Extremities are free of edema. A/P: 1. ESBL Urinary tract infection with toxic encephalopathy is now resolved. Blood cx negative. BC remain negative. Plan 7 day total course of Ertapenem, completing on 02/15. 2. History of CVA x2 (remote). Continue aspirin Plavix and Eliquis for tertiary prevention Continue high-intensity statin. 3. Hypertension, stable. On lisinopril. PLAN: -continue ertapenem, Midline placed. -Nares swab, Tessalon. Anticipate discharge back to [facility] tomorrow 02/15. Exam Vital Signs (past 8 hours): Oxygen Delivery Method Room Air Oxygen Flow Rate 0 Objective Labs 02/10/25 18:10 02/10/25 06:10 [facility] Medical History Lumbar radiculitis Social History household members: none Smoking Status: Former smoker alcohol intake: never Assessment & Plan Time-Based Coding :: [TOTAL MINUTES] spent with patient and on the chart (including review of chart, obtaining history, exam, reviewing outside data, placing orders, documenting exam and treatment plan, and counseling patient) on [DATE]. Quality VTE Deep Vein Thrombosis/Pulmonary Embolism Present on Admission: No
[2025-02-14] MEDS: APIXABAN 5 MG TABLET PO ×2 (08:42→22:06)
[2025-02-14] MEDS: FENOFIBRATE, MICRONIZED 67 MG CAPSULE 134 MG PO (08:42)
[2025-02-14] MEDS: FAMOTIDINE 20 MG TABLET PO (08:43)
[2025-02-14] MEDS: SODIUM CHLORIDE 0.9% FLUSH 10 ML IV ×2 (08:44→22:07)
[2025-02-14] MEDS: METOPROLOL ER 50 MG TABLET 100 MG PO (08:44)
[2025-02-14] MEDS: LIDOCAINE 5% PATCH 1 EACH TOP (08:44)
[2025-02-14] MEDS: CLOPIDOGREL 75 MG TABLET PO (08:44)
[2025-02-14 09:00] VITALS: BP 126/67; PULSE 62; RESP 16; O2SAT 95
[2025-02-14] MEDS: ERTAPENEM 1 GM in SODIUM CHLORIDE 0.9% 100 ML IV (11:10)
--- NOTE | 2025-02-14 12:42 | PC.NURSE ---
Day Shift Note Alert and oriented x3. SpO2 mid-90s, dry cough present. Up with SBA to bathroom, using FWW, no FWW needed when transferring between bed and chair. Patient is steady on feet and calls appropriately for assist as needed. Denies dizziness. Reports back pain well controlled with tylenol and lidocaine patch. Call light within reach.
[2025-02-14 15:53] VITALS: BP 108/57; PULSE 70; RESP 16; TEMP 37.1; O2SAT 96
--- NOTE | 2025-02-14 16:30 | CM.DPNOTE ---
DCP note OCEANOGRAPHER PHYSICAL reviewed EMR per Tessa, only 7 days IV abx needed. day 7 tomorrow. finish IV abx here and dc to [facility] tomorrow. OCEANOGRAPHER PHYSICAL canceled ref with Rain at [facility]. OCEANOGRAPHER PHYSICAL spoke with Daphnie at [facility], will plan to pick pt up tomorrow 11am. OCEANOGRAPHER PHYSICAL updated RN, will plan to give ABX early tomorrow to be done at 11am. OCEANOGRAPHER PHYSICAL updated pt. in agreement with plan. declines other questions at this time. OCEANOGRAPHER PHYSICAL faxed clinicals to [facility]. P: dc tomorrow to [facility] at 11am. will continue to follow as needed for DCP Coordination ADIA Covarrubias
[2025-02-14] MEDS: ATORVASTATIN 20 MG TABLET 40 MG PO (17:41)
[2025-02-14 21:00] VITALS: BP 112/58; RESP 18
[2025-02-15] MEDS: ACETAMINOPHEN 325 MG TABLET 650 MG PO ×2 (01:53→09:07)
[2025-02-15 03:00] VITALS: BP 134/84; PULSE 67; RESP 16; O2SAT 97
--- NOTE | 2025-02-15 08:27 | PM.DS.1 ---
History of Present Illness History of Present Illness Chief complaint: Pain in bladder Narrative: From H&P: 02/08: 72-year-old female [facility] from [facility] with complaint of bladder pain and difficulty urinating patient is unable to give a reliable history. Past medical history significant for DVT in the distal femoral vein and popliteal vein diagnosed in September Findings in the emergency department significant for White blood cell count of 8000 with 88% neutrophils Sodium 142 potassium 3.8 BUN 27 creatinine 1.4 Procalcitonin 0.8 Urinalysis 5-10 white blood cells per high-power field positive nitrates in greater than 30 bacteria Discharge Providers Provider Date of admission: 02/08/25 15:28 Discharge Date: 02/15/25 Consults: 02/09/25 09:25 Consult to Pharmacy Routine Comment: home medications Discharge provider: Jose Weems MD Summary Hospital Course Discharge Diagnosis: 1. ESBL Urinary tract infection with toxic encephalopathy encephalopathy is now resolved. Blood cx negative. Monitor blood cultures, these remain negative. Anticipate IV antibiotics through the weekend and a probable 7 day total course of Ertapenem. 2. Septic shock, initially requiring vasopressors. Resolved. 3. History of CVA x2 (remote). Continue aspirin Plavix and Eliquis for tertiary prevention Continue high-intensity statin. 4. Hypertension, stable. On lisinopril. Hospital Course: 02/09: Patient was able to be weaned off of norepinephrine culture results came back with ESBL UTI and started on ertapenem based on sensitivities 02/06: Reduced systolic blood pressures this morning antihypertensives were held 02/10: ESBL UTI. 02/11: Alert, no pain or confusion. 02/12: She has a new a new cough, and some chest pain with coughing. No fevers, chills. No urinary symptoms. She was on day 4 of ertapenem for an ESBL UTI. Anticipate 7 days of antibiotics. 02/13: Last labs from 02/10 reviewed. Hemoglobin was 10.5. Midline IV placed today. Pending insurance approval for transfer to [facility] to complete antibiotics. She does already live at [facility] living [facility] and follows with Dr. Richards. 02/14: Have not received insurance authorization for IV antibiotics at [facility] so will likely discharge back to [facility] tomorrow after completing 7 days antibiotics. 02/15: Completed 7 days of ertapenem, stable for discharge back to facility. No other acute issues. Status at Discharge Cognitive/behavioral status at discharge: oriented Functional status at discharge: uses cane/walker Overall status at discharge: patient is back to baseline Time Spent with Patient Time spent: Greater than 30 minutes Exam Vital Signs (past 8 hours): - 02/15/25 03:00 Pulse Rate 67 Respiratory Rate 16 Blood Pressure 134/84 Pulse Oximetry 97 Oxygen Flow Rate 0 Oxygen Delivery Method Room Air Oxygen Flow Rate 0 Narrative Exam Narrative: NAD, alert and oriented. Fluent speech. Lungs are clear, normal rate and effort. Heart is regular, no murmur gallop or rub. Abdomen is soft, non distended. Extremities are free of edema. Objective ECG Impression: Intervals [place] Rate: 84 P: 4 WV: 174 QRS: -26 QRSD: 92 T: 23 QT: 326 QTc: 385 Interpretive Statements Normal sinus rhythm Labs 02/10/25 18:10 02/10/25 06:10 [facility] Medical History Lumbar radiculitis Social History household members: none Smoking Status: Former smoker alcohol intake: never Discharge Assessment & Plan Assessment and Plan Assessment: 1. ESBL Urinary tract infection with toxic encephalopathy encephalopathy is now resolved. Blood cx negative. Monitor blood cultures, these remain negative. Anticipate IV antibiotics through the weekend and a probable 7 day total course of Ertapenem. 2. Septic shock, initially requiring vasopressors. Resolv Plan of Treatment: Completed antibiotics, clinically improved. Stable for discharge back to facility on baseline medications. Discharge Plan Discharge Plan Patient Disposition: Assisted Living Transfer to: [facility] Living Under care of provider: Facilty Provider. Provider Discharge Comment: Stable for discharge, completed antibiotics. Discharge orders & Medications Discharge Orders: Discharge (Order); Ordered 02/15/25 Ordered By: Jose Weems Prescriptions: Continued amlodipine 5 mg tablet 5 mg PO DAILY aspirin 325 mg tablet 325 mg PO DAILY atorvastatin 40 mg tablet 40 mg PO QPM clopidogrel 75 mg tablet 75 mg PO DAILY famotidine 40 mg tablet 40 mg PO DAILY fenofibrate nanocrystallized 145 mg tablet 145 mg PO DAILY Gemtesa 75 mg tablet 75 mg PO DAILY lisinopril 2.5 mg tablet 2.5 mg PO DAILY nitroglycerin 0.4 mg tablet, sublingual 0.4 mg sublingual Q5-15M PRN (Reason: chest pain) Rx Instructions: do not exceed 3 doses per episode metoprolol succinate [Toprol XL] 100 mg tablet extended release 24 hr 100 mg PO DAILY zinc gluconate 30 mg tablet 30 mg PO DAILY acetaminophen 500 mg capsule 500 mg PO Q6H PRN (Reason: pain) pantoprazole 40 mg tablet,delayed release (DR/EC) 40 mg PO DAILY cyanocobalamin (vitamin B-12) [Vitamin B-12] 500 mcg tablet 500 mcg PO DAILY Rx Instructions: take every other day lidocaine [Lidoderm] 5 % adhesive patch,medicated 1 patch topical DAILY Qty: 30 0RF Rx Instructions: leave on most painful area for up to 12 hrs Eliquis DVT-PE Treat 30D Start 5 mg (74 tabs) tablets,dose pack See Rx Instructions .ROUTE .COMPLEX Qty: 74 0RF Rx Instructions: orally per package directions Medication counseling provided by Pharmacist: No Discharge Health Status Multidrug resistant organism: Other Diet/Activity/Treatments Diet: Low-cholesterol Skin/Wound/Dressing Care Report to your healthcare provider any signs of infection, such as:: chills, fever and night sweats Visit Report/Discharge Packet Instructions: DI for Urinary Tract Infection (UTI) Stand Alone Forms: Patient Portal/API Quality VTE Deep Vein Thrombosis/Pulmonary Embolism Present on Admission: No
[2025-02-15 09:00] VITALS: BP 126/62; PULSE 68; RESP 17; TEMP 36.4; O2SAT 95
[2025-02-15] MEDS: APIXABAN 5 MG TABLET PO (09:07)
[2025-02-15] MEDS: BENZONATATE 100 MG CAPSULE PO (09:07)
[2025-02-15] MEDS: LIDOCAINE 5% PATCH 1 EACH TOP (09:07)
[2025-02-15] MEDS: METOPROLOL ER 50 MG TABLET 100 MG PO (09:08)
[2025-02-15] MEDS: CLOPIDOGREL 75 MG TABLET PO (09:08)
[2025-02-15] MEDS: FAMOTIDINE 20 MG TABLET PO (09:08)
[2025-02-15] MEDS: FENOFIBRATE, MICRONIZED 67 MG CAPSULE 134 MG PO (09:08)
[2025-02-15] MEDS: SODIUM CHLORIDE 0.9% FLUSH 10 ML IV (09:09)
[2025-02-15] MEDS: ERTAPENEM 1 GM in SODIUM CHLORIDE 0.9% 100 ML IV (09:09)
--- NOTE | 2025-02-15 10:31 | CM.DPC ---
DC Summary and Med list sent to Sudeep luj[facility].
== END 2025-02-15 11:05 | DRG 689 ==
LOC: ED 14:16 → AC 15:29 → ICU 02-09 02:16
PROVIDERS: Hospitalist; Internal Medicine; Admitting Provider Internal Medicine; Emergency Provider Emergency Medicine; Referring Provider Emergency Medicine; Visit Provider Internal Medicine
DX: N39.0 Urinary tract infection, site not specified (principal); A41.9 Sepsis, unspecified organism; G92.9 Unspecified toxic encephalopathy; R65.21 Severe sepsis with septic shock; Z16.24 Resistance to multiple antibiotics; I95.9 Hypotension, unspecified; B96.20 Unspecified Escherichia coli [E. coli] as the cause of diseases classified elsewhere; I69.320 Aphasia following cerebral infarction; I10 Essential (primary) hypertension; R05.9 Cough, unspecified; R07.9 Chest pain, unspecified; Z86.718 Personal history of other venous thrombosis and embolism; Z79.01 Long term (current) use of anticoagulants; Z87.891 Personal history of nicotine dependence; Z79.02 Long term (current) use of antithrombotics/antiplatelets
CPT/HCPCS: 36415; 80048; 80053; 81001; 83605; 84145; 85025; 87040; 87077; 87086; 87154; 87186; 87637; 93005; 99284; 99285; A9270; J0165; J1335; J2543; J7030; J7040; J7050; J7120